=== PATIENT | male | born 1965 | race Caucasian/White ===

== ENCOUNTER 2020-06-30 03:26 | Inpatient (IN) ==
[2020-06-30 03:57] LABS: Basophils # (auto) 0.02 K/uL (0-0.2); Basophils % (auto) 0.3 %; Eosinophils # (auto) 0.22 K/uL (0-0.5); Eosinophils % (auto) 2.9 %; Hematocrit (blood only) 41.8 % (42-52); Hemoglobin 14.1 g/dL (14.0-18.0); Immature Granulocytes # (auto) 0.04 K/uL (0.00-0.02); Immature Granulocytes % (auto) 0.5 %; Lymphocytes # (auto) 1.58 K/uL (1.2-3.4); Lymphocytes % (auto) 20.9 %; Mean Corpuscular Hemoglobin 29.3 pg (25-34); Mean Corpuscular Hgb Conc 33.7 g/dL (32-36); Mean Corpuscular Volume 86.9 fL (80-100); Mean Platelet Volume 9.5 fL (7.4-10.4); Monocytes # (auto) 0.54 K/uL (0.11-0.59); Monocytes % (auto) 7.1 %; Neutrophils # (auto) 5.16 K/uL (1.4-6.5); Neutrophils % (auto) 68.3 %; Platelet Count 345 K/uL (130-400); RDW Coefficient of Variation 14.4 % (11.5-14.5); Red Blood Count 4.81 M/uL (4.7-6.1); White Blood Count 7.56 K/uL (4.8-10.8)
--- NOTE | 2020-06-30 04:06 | Emergency Department Note ---
History of Present Illness General Chief complaint: Chest Pain Stated complaint: CHEST PAIN Time Seen by Provider: 06/30/20 03:28 Source: patient Mode of arrival: EMS Limitations: no limitations History of Present Illness This patient is a 54-year-old male who presents to the emergency department from [facility] for evaluation of chest pain. The patient states that the pain started about 4 hours prior to arrival. He states that he was trying to go to bed when the pain started. Initially, pain was right-sided and intermittently sharp. He had some associated diaphoresis and vomiting. He has felt short of breath. He states that prior to arrival, pain did move somewhat to the left side. He states that nothing makes the pain better or worse. He was given aspirin in route here and states that his pain is now gone. Patient has a history of hyperlipidemia and hypertension, denies any history of heart disease. He is a former smoker. He does report a family history of MN in his father around age 50. He denies any recent cough, fever or shortness of breath. He does report that about a month ago, he had a few episodes of passing out associated with some chest pain. He was evaluated by the medical unit for this but had no further work-up. Home Medications Medication Instructions Recorded Confirmed Type Novolin 70-30 FlexPen U-100 40 - 45 unit SUBCUT BID 06/30/20 06/30/20 History amiodarone 200 mg PO BID 06/30/20 06/30/20 History aspirin 81 mg PO DAILY 06/30/20 06/30/20 History hydrochlorothiazide 25 mg PO DAILY 06/30/20 06/30/20 History losartan 25 mg PO DAILY 06/30/20 06/30/20 History metoprolol tartrate 25 mg PO BID 06/30/20 06/30/20 History rosuvastatin 40 mg PO DAILY 06/30/20 06/30/20 History warfarin 6 mg PO DAILY 06/30/20 06/30/20 History oxycodone 5 - 10 mg PO Q6H PRN #20 tab 07/05/20 Rx Allergies Allergy/AdvReac Type Severity Reaction Status Date / Time No Known Allergies Allergy Unverified 06/30/20 07:15 Past Med/Surg History Medical History Dyslipidemia Hypertension Surgical History No significant past surgical history Social History Smoking Status: Former smoker Hx Alcohol Use: No Hx Substance Use: No Preferred Language: Zambian Communication Ability: Effective Duct Layer Supervisor Required: No Beliefs That Will Affect Care: None Current Living Situation: Other Current Living Situation Comment: [facility] Choi Feels Safe at Home: Yes Assistive Devices: None Review of Systems A total of 10 systems reviewed and were otherwise negative Physical Exam Vital Signs Vital Signs - 24 hr 06/30/20 03:33 Temperature 37.1 C Temperature Source Oral Pulse Rate 73 Respiratory Rate 20 Blood Pressure 148/88 H Blood Pressure Mean 108 Blood Pressure Position Sitting Pulse Oximetry 95 Oxygen Delivery Method Room Air Sepsis Recent Fever Within 48 Hours No Sepsis New/Unexplained Change in Mental Status No Sepsis Action Taken by Nursing No Action Required VITALS: Vitals are noted on the nurse's note and reviewed by myself. GENERAL: This is a 54-year-old obese male in no acute distress. SKIN: The skin was without rashes. EARS: External auditory canals clear, tympanic membranes pearly baig without erythema or effusion bilaterally. EYES: Pupils equal round and reactive to light and accommodation. MOUTH: Mucous membranes moist. Tonsils are not enlarged. Pharynx without erythema or exudate. NECK: Supple without nuchal rigidity. No lymphadenopathy. HEART: Regular rate and rhythm without murmurs gallops or rubs. LUNGS: Clear to auscultation bilaterally without wheezes, rales or rhonchi. ABDOMEN: Positive bowel sounds x 4. Moderate right upper quadrant tenderness to palpation. EXTREMITIES: No lower extremity edema. NEURO: Patient was alert and oriented to person place and time. Course Consultations Consultation #1: Dr. Troncoso - general surgery Dr. Troncoso will evaluate the patient but recommended admitting to the medical service. Consultation #2: Dr. Salazar - [facility] hospitalist Administered Medications Discontinued Medications Acetaminophen (Acetaminophen 500 Mg Tab) 1,000 mg PO Q6H PRN PRN Reason: pain Stop: 07/31/20 14:06 Last Admin: 07/05/20 07:28 Dose: 1,000 mg Documented by: [id number] Admin: 07/03/20 12:45 Dose: 1,000 mg Documented by: [id number] Admin: 07/01/20 15:05 Dose: 1,000 mg Documented by: [id number] Amiodarone HCl (Amiodarone 200 Mg Tab) 200 mg PO BID [facility] Stop: 07/30/20 11:29 Last Admin: 07/05/20 10:02 Dose: 200 mg Documented by: [id number] Admin: 07/04/20 22:00 Dose: 200 mg Documented by: [id number] Admin: 07/04/20 11:42 Dose: 200 mg Documented by: [id number] Admin: 07/03/20 21:44 Dose: Not Given Documented by: [id number] Admin: 07/03/20 07:52 Dose: 200 mg Documented by: [id number] Admin: 07/02/20 20:37 Dose: 200 mg Documented by: [id number] Admin: 07/02/20 08:28 Dose: 200 mg Documented by: [id number] Admin: 07/01/20 20:28 Dose: 200 mg Documented by: [id number] Admin: 07/01/20 08:29 Dose: 200 mg Documented by: [id number] Admin: 06/30/20 20:16 Dose: 200 mg Documented by: [id number] Admin: 06/30/20 13:38 Dose: 200 mg Documented by: [id number] Aspirin (Aspirin 81 Mg Ectab) 81 mg PO DAILY [facility] Stop: 08/03/20 10:27 Last Admin: 07/05/20 09:12 Dose: 81 mg Documented by: [id number] Admin: 07/04/20 11:45 Dose: 81 mg Documented by: [id number] Bacitracin (Bacitracin Oint 15 Gm Tube) Confirm Administered Dose 45 appln .ROUTE .STK-MED ONE Stop: 07/04/20 06:36 Last Admin: 07/04/20 07:58 Dose: 45 appln Documented by: [id number] Bupivacaine HCl (Bupivacaine 0.5 % 5 Mg/1 Ml Mpf 30ml Vial) Confirm Administered Dose 30 ml .ROUTE .STK-MED ONE Stop: 07/04/20 06:36 Last Admin: 07/04/20 07:59 Dose: 20 ml Documented by: [id number] Fentanyl Citrate (Fentanyl Citrate 100 Mcg/2 Ml Vial) 50 mcg IV Q5M PRN PRN Reason: PACU Use Only-Pain Stop: 07/04/20 15:15 Last Admin: 07/04/20 09:35 Dose: 50 mcg Documented by: [id number] Admin: 07/04/20 09:24 Dose: 50 mcg Documented by: [id number] Admin: 07/04/20 09:18 Dose: 50 mcg Documented by: [id number] Hydrochlorothiazide (Hydrochlorothiazide 25 Mg Tab) 25 mg PO DAILY [facility] Stop: 08/03/20 10:27 Last Admin: 07/05/20 09:12 Dose: 25 mg Documented by: [id number] Admin: 07/04/20 11:45 Dose: 25 mg Documented by: [id number] Piperacillin Sod/Tazobactam (Sod 3.375 gm/ Dextrose) 100 ml in 115 mls @ 230 mls/hr IV NOW STA Stop: 06/30/20 08:50 Last Infusion: 06/30/20 09:39 Dose: 0 mls/hr Documented by: [id number] Admin: 06/30/20 08:47 Dose: 230 mls/hr Documented by: [id number] Lactated Ringer's (Lr) 1,000 mls @ 80 mls/hr IV .[id number] DREA Stop: 07/30/20 08:29 Last Infusion: 07/05/20 10:51 Dose: 0 mls/hr Documented by: [id number] Admin: 07/05/20 09:06 Dose: 80 mls/hr Documented by: [id number] Infusion: 07/05/20 08:46 Dose: 80 mls/hr Documented by: [id number] Admin: 07/04/20 20:16 Dose: 80 mls/hr Documented by: [id number] Admin: 07/04/20 18:25 Dose: Not Given Documented by: [id number] Infusion: 07/04/20 07:00 Dose: 0 mls/hr Documented by: [id number] Infusion: 07/04/20 03:00 Dose: 80 mls/hr Documented by: [id number] Infusion: 07/04/20 02:19 Dose: 0 mls/hr Documented by: [id number] Admin: 07/03/20 23:15 Dose: 80 mls/hr Documented by: [id number] Infusion: 07/03/20 23:15 Dose: 80 mls/hr Documented by: [id number] Admin: 07/03/20 12:10 Dose: 80 mls/hr Documented by: [id number] Infusion: 07/03/20 12:10 Dose: 0 mls/hr Documented by: [id number] Admin: 07/02/20 22:50 Dose: 80 mls/hr Documented by: [id number] Infusion: 07/02/20 22:50 Dose: 80 mls/hr Documented by: [id number] Admin: 07/02/20 12:18 Dose: 80 mls/hr Documented by: [id number] Infusion: 07/02/20 12:18 Dose: 0 mls/hr Documented by: [id number] Infusion: 07/02/20 08:27 Dose: 80 mls/hr Documented by: [id number] Admin: 07/02/20 03:06 Dose: 125 mls/hr Documented by: [id number] Infusion: 07/02/20 03:06 Dose: 125 mls/hr Documented by: [id number] Admin: 07/01/20 20:27 Dose: 125 mls/hr Documented by: [id number] Infusion: 07/01/20 19:31 Dose: 125 mls/hr Documented by: [id number] Admin: 07/01/20 11:31 Dose: 125 mls/hr Documented by: [id number] Infusion: 07/01/20 11:31 Dose: 0 mls/hr Documented by: [id number] Infusion: 07/01/20 05:25 Dose: 125 mls/hr Documented by: [id number] Admin: 07/01/20 03:38 Dose: 125 mls/hr Documented by: [id number] Infusion: 07/01/20 03:38 Dose: 125 mls/hr Documented by: [id number] Infusion: 06/30/20 21:26 Dose: 125 mls/hr Documented by: [id number] Admin: 06/30/20 20:10 Dose: 125 mls/hr Documented by: [id number] Infusion: 06/30/20 17:34 Dose: 125 mls/hr Documented by: [id number] Admin: 06/30/20 09:34 Dose: 125 mls/hr Documented by: [id number] Piperacillin Sod/Tazobactam (Sod 4.5 gm/ Dextrose) 120 mls @ 30 mls/hr IV Q8H [facility]; Protocol Stop: 07/10/20 13:59 Last Infusion: 07/05/20 14:41 Dose: 0 mls/hr Documented by: [id number] Admin: 07/05/20 10:47 Dose: 30 mls/hr Documented by: [id number] Infusion: 07/05/20 05:49 Dose: 0 mls/hr Documented by: [id number] Admin: 07/05/20 01:49 Dose: 30 mls/hr Documented by: [id number] Infusion: 07/04/20 22:07 Dose: 0 mls/hr Documented by: [id number] Admin: 07/04/20 17:52 Dose: 30 mls/hr Documented by: [id number] Infusion: 07/04/20 11:38 Dose: 0 mls/hr Documented by: [id number] Admin: 07/04/20 07:24 Dose: 30 mls/hr Documented by: [id number] Admin: 07/04/20 01:42 Dose: Not Given Documented by: [id number] Infusion: 07/03/20 22:07 Dose: 0 mls/hr Documented by: [id number] Admin: 07/03/20 17:57 Dose: 30 mls/hr Documented by: [id number] Infusion: 07/03/20 13:05 Dose: 0 mls/hr Documented by: [id number] Admin: 07/03/20 09:05 Dose: 30 mls/hr Documented by: [id number] Infusion: 07/03/20 06:04 Dose: 0 mls/hr Documented by: [id number] Admin: 07/03/20 02:01 Dose: 30 mls/hr Documented by: [id number] Infusion: 07/02/20 21:59 Dose: 0 mls/hr Documented by: [id number] Admin: 07/02/20 17:51 Dose: 30 mls/hr Documented by: [id number] Infusion: 07/02/20 14:22 Dose: 0 mls/hr Documented by: [id number] Admin: 07/02/20 10:02 Dose: 30 mls/hr Documented by: [id number] Infusion: 07/02/20 07:10 Dose: 0 mls/hr Documented by: [id number] Admin: 07/02/20 03:09 Dose: 30 mls/hr Documented by: [id number] Infusion: 07/01/20 21:53 Dose: 0 mls/hr Documented by: [id number] Admin: 07/01/20 17:43 Dose: 30 mls/hr Documented by: [id number] Infusion: 07/01/20 13:40 Dose: 0 mls/hr Documented by: [id number] Admin: 07/01/20 09:33 Dose: 30 mls/hr Documented by: [id number] Infusion: 07/01/20 05:25 Dose: 0 mls/hr Documented by: [id number] Admin: 07/01/20 01:39 Dose: 30 mls/hr Documented by: [id number] Infusion: 06/30/20 21:26 Dose: 0 mls/hr Documented by: [id number] Admin: 06/30/20 17:07 Dose: 30 mls/hr Documented by: [id number] Insulin Aspart (Insulin Aspart 100 Units/Ml 3 Ml Pen) 0 units SC ACHS DREA Stop: 07/30/20 11:29 Last Admin: 06/30/20 13:04 Dose: Not Given Documented by: [id number] Insulin Aspart (Insulin Aspart 100 Units/Ml 3 Ml Pen) 0 units SC ACHS DREA Stop: 07/31/20 16:29 Last Admin: 07/03/20 21:44 Dose: Not Given Documented by: [id number] Cosigned by: [id number] Admin: 07/03/20 17:58 Dose: 6 units Documented by: [id number] Cosigned by: [id number] Admin: 07/03/20 13:15 Dose: 5 units Documented by: [id number] Cosigned by: [id number] Admin: 07/03/20 09:05 Dose: Not Given Documented by: [id number] Admin: 07/02/20 21:29 Dose: Not Given Documented by: [id number] Cosigned by: [id number] Admin: 07/02/20 18:15 Dose: Not Given Documented by: [id number] Admin: 07/02/20 13:16 Dose: Not Given Documented by: [id number] Admin: 07/02/20 08:43 Dose: 2 units Documented by: [id number] Cosigned by: [id number] Admin: 07/01/20 22:01 Dose: Not Given Documented by: [id number] Cosigned by: [id number] Admin: 07/01/20 17:40 Dose: 2 units Documented by: [id number] Cosigned by: [id number] Insulin Aspart (Insulin Aspart 100 Units/Ml 3 Ml Pen) 0 units SC Q6 [facility] Stop: 08/03/20 05:59 Last Admin: 07/04/20 07:24 Dose: Not Given Documented by: [id number] Cosigned by: [id number] Insulin Aspart (Insulin Aspart 100 Units/Ml 3 Ml Pen) 0 units SC ACHS DREA Stop: 08/03/20 11:29 Last Admin: 07/05/20 12:42 Dose: 1 units Documented by: [id number] Cosigned by: [id number] Admin: 07/05/20 09:59 Dose: Not Given Documented by: [id number] Cosigned by: [id number] Admin: 07/04/20 22:06 Dose: Not Given Documented by: [id number] Cosigned by: [id number] Admin: 07/04/20 17:54 Dose: 4 units Documented by: [id number] Cosigned by: [id number] Admin: 07/04/20 11:41 Dose: Not Given Documented by: [id number] Ioversol (Optiray 320 125ml) 119 ml IV ONCE ONE Stop: 07/01/20 10:19 Last Admin: 07/01/20 10:18 Dose: 119 ml Documented by: [id number] Ketorolac Tromethamine (Ketorolac 30 Mg/Ml Vial) 30 mg IV NOW ONE Stop: 07/02/20 11:08 Last Admin: 07/02/20 12:15 Dose: 30 mg Documented by: [id number] Lidocaine HCl (Lidocaine Hcl 1% 20 Ml Vial) Confirm Administered Dose 20 ml .ROUTE .STK-MED ONE Stop: 07/04/20 06:37 Last Admin: 07/04/20 07:59 Dose: 20 ml Documented by: [id number] Losartan Potassium (Losartan Potassium 25 Mg Tab) 25 mg PO DAILY [facility]RE[facility] Stop: 07/30/20 11:29 Last Admin: 07/05/20 09:12 Dose: 25 mg Documented by: [id number] Admin: 07/04/20 11:41 Dose: 25 mg Documented by: [id number] Admin: 07/03/20 07:53 Dose: 25 mg Documented by: [id number] Admin: 07/02/20 08:28 Dose: 25 mg Documented by: [id number] Admin: 07/01/20 08:29 Dose: 25 mg Documented by: [id number] Admin: 06/30/20 13:38 Dose: 25 mg Documented by: [id number] Metoprolol Tartrate (Metoprolol Tartrate 25 Mg Tab) 25 mg PO BID [facility]REA Stop: 07/30/20 11:29 Last Admin: 07/05/20 09:10 Dose: Not Given Documented by: [id number] Admin: 07/04/20 22:00 Dose: 25 mg Documented by: [id number] Admin: 07/04/20 11:41 Dose: 25 mg Documented by: [id number] Admin: 07/03/20 21:44 Dose: Not Given Documented by: [id number] Admin: 07/03/20 07:53 Dose: Not Given Documented by: [id number] Admin: 07/02/20 20:37 Dose: 25 mg Documented by: [id number] Admin: 07/02/20 08:28 Dose: 25 mg Documented by: [id number] Admin: 07/01/20 20:27 Dose: 25 mg Documented by: [id number] Admin: 07/01/20 08:29 Dose: 25 mg Documented by: [id number] Admin: 06/30/20 20:16 Dose: 25 mg Documented by: [id number] Admin: 06/30/20 13:38 Dose: 25 mg Documented by: [id number] Morphine Sulfate (Morphine Sulfate 2 Mg/Ml Carp) 2 mg IV Q4 PRN; Protocol PRN Reason: Pain Stop: 07/14/20 08:20 Last Admin: 07/01/20 22:22 Dose: 2 mg Documented by: [id number] Admin: 07/01/20 09:10 Dose: 2 mg Documented by: [id number] Admin: 06/30/20 08:45 Dose: 2 mg Documented by: [id number] Ondansetron HCl (Ondansetron Inj 2 Mg/Ml 2 Ml Vial) 4 mg IV Q6H PRN PRN Reason: Nausea Stop: 07/30/20 11:16 Last Admin: 07/03/20 09:02 Dose: 4 mg Documented by: [id number] Admin: 07/02/20 17:55 Dose: 4 mg Documented by: [id number] Admin: 07/01/20 22:50 Dose: 4 mg Documented by: [id number] Admin: 07/01/20 09:17 Dose: 4 mg Documented by: [id number] Ondansetron HCl (Ondansetron Inj 2 Mg/Ml 2 Ml Vial) 4 mg IV ONCE PRN PRN Reason: PACU Use Only-Nausea/Vomiting Stop: 07/04/20 15:16 Last Admin: 07/04/20 09:20 Dose: 4 mg Documented by: [id number] Oxycodone HCl (Oxycodone Hcl Ir 5 Mg Tab (Immediate Release)) 10 mg PO Q6H PRN PRN Reason: Moderate Pain Stop: 07/16/20 11:06 Last Admin: 07/05/20 03:13 Dose: 10 mg Documented by: [id number] Admin: 07/04/20 20:16 Dose: 10 mg Documented by: [id number] Admin: 07/04/20 11:46 Dose: 10 mg Documented by: [id number] Admin: 07/02/20 18:26 Dose: 10 mg Documented by: [id number] Rosuvastatin Calcium (Rosuvastatin Calcium 20 Mg Tab) 40 mg PO DAILY [facility] Stop: 08/03/20 10:27 Last Admin: 07/05/20 09:12 Dose: 40 mg Documented by: [id number] Admin: 07/04/20 11:45 Dose: 40 mg Documented by: [id number] Warfarin Sodium (Warfarin Sod 6 Mg Tab) 6 mg PO DAILY@1600 [facility] Stop: 08/03/20 15:59 Last Admin: 07/05/20 15:41 Dose: 6 mg Documented by: [id number] Admin: 07/04/20 16:31 Dose: 6 mg Documented by: [id number] Medical Decision Making Differential Diagnosis Differential diagnosis includes acute coronary syndrome, pulmonary embolism, pneumothorax, pericarditis, myocarditis, endocarditis, anxiety, musculoskeletal pain, GERD, costochondritis, pneumonia, biliary colic, among others. Home Medications Current Medication List: was personally reviewed by me Laboratory Data Attestation: I reviewed the patient's lab results. Result diagrams: 07/05/20 07:35 07/05/20 07:35 Lab Results 06/30/20 06/30/20 06/30/20 Range/Units 03:47 03:47 06:41 WBC 7.56 (4.8-10.8) K/uL RBC 4.81 (4.7-6.1) M/uL Hgb 14.1 (14.0-18.0) g/dL Hct 41.8 L (42-52) % MCV 86.9 (80-100) fL MCH 29.3 (25-34) pg MCHC 33.7 (32-36) g/dL RDW Std Deviation 46.0 (36.4-46.3) fL RDW Coeff of Serena 14.4 (11.5-14.5) % Plt Count 345 (130-400) K/uL MPV 9.5 (7.4-10.4) fL Immature Gran % (Auto) 0.5 % Neut % (Auto) 68.3 % Lymph % (Auto) 20.9 % [place] % (Auto) 7.1 % Eos % (Auto) 2.9 % Baso % (Auto) 0.3 % Neut # (Auto) 5.16 (1.4-6.5) K/uL Lymph # (Auto) 1.58 (1.2-3.4) K/uL [place] # (Auto) 0.54 (0.11-0.59) K/uL Eos # (Auto) 0.22 (0-0.5) K/uL Baso # (Auto) 0.02 (0-0.2) K/uL Immature Gran # (Auto) 0.04 H (0.00-0.02) K/uL Sodium 141 (136-145) mmol/L Potassium 4.3 (3.5-5.1) mmol/L Chloride 111 H (98-107) mmol/L Carbon Dioxide 26 (21-32) mmol/L Anion Gap 4.0 (3-11) BUN 16 (7-18) mg/dl Creatinine 0.99 (0.6-1.4) mg/dl Est Cr Clr Drug Dosing 104.2 ml/min Est GFR ( Amer) 101.1 Est GFR (Non-Af Amer) 87.2 BUN/Creatinine Ratio 16.7 (10-20) Glucose 164 H (70-99) mg/dl Calcium 8.3 L (8.5-10.1) mg/dl Total Bilirubin 0.4 (0.2-1) mg/dl AST 15 (15-37) U/L ALT 26 (12-78) U/L Alkaline Phosphatase 171 H (45-117) U/L Troponin I < 0.015 (0-0.045) ng/ml Total Protein 7.3 (6.4-8.2) gm/dl Albumin 3.5 (3.4-5.0) gm/dl Globulin 3.8 (2.5-4.0) gm/dl Albumin/Globulin Ratio 0.9 (0.9-2) Lipase 250 (73-393) U/L COVID-19 Eval Order CovFluRsv at [facility] SARS-CoV-2 (PCR) (Negative) Influenza Type A (PCR) (Neg) Influenza Type B (PCR) (Neg) RSV (RT-PCR) (Neg) 06/30/20 Range/Units 06:41 WBC (4.8-10.8) K/uL RBC (4.7-6.1) M/uL Hgb (14.0-18.0) g/dL Hct (42-52) % MCV (80-100) fL MCH (25-34) pg MCHC (32-36) g/dL RDW Std Deviation (36.4-46.3) fL RDW Coeff of Serena (11.5-14.5) % Plt Count (130-400) K/uL MPV (7.4-10.4) fL Immature Gran % (Auto) % Neut % (Auto) % Lymph % (Auto) % [place] % (Auto) % Eos % (Auto) % Baso % (Auto) % Neut # (Auto) (1.4-6.5) K/uL Lymph # (Auto) (1.2-3.4) K/uL [place] # (Auto) (0.11-0.59) K/uL Eos # (Auto) (0-0.5) K/uL Baso # (Auto) (0-0.2) K/uL Immature Gran # (Auto) (0.00-0.02) K/uL Sodium (136-145) mmol/L Potassium (3.5-5.1) mmol/L Chloride (98-107) mmol/L Carbon Dioxide (21-32) mmol/L Anion Gap (3-11) BUN (7-18) mg/dl Creatinine (0.6-1.4) mg/dl Est Cr Clr Drug Dosing ml/min Est GFR ( Amer) Est GFR (Non-Af Amer) BUN/Creatinine Ratio (10-20) Glucose (70-99) mg/dl Calcium (8.5-10.1) mg/dl Total Bilirubin (0.2-1) mg/dl AST (15-37) U/L ALT (12-78) U/L Alkaline Phosphatase (45-117) U/L Troponin I (0-0.045) ng/ml Total Protein (6.4-8.2) gm/dl Albumin (3.4-5.0) gm/dl Globulin (2.5-4.0) gm/dl Albumin/Globulin Ratio (0.9-2) Lipase (73-393) U/L COVID-19 Eval Order SARS-CoV-2 (PCR) NEGATIVE (Negative) Influenza Type A (PCR) Negative (Neg) Influenza Type B (PCR) Negative (Neg) RSV (RT-PCR) Negative (Neg) Imaging Data Attestation: I personally reviewed and interpreted this imaging study as follows: My Impression: CHEST 1 VIEW: No pulmonary consolidation or pneumothorax. Normal cardiac silhouette. Radiologist's Impression: US RUQ: Hepatomegaly and hepatic steatosis. Multiple gallstones and sludge. Gallbladder is mildly distended with possible impacted stone at the neck. No gallbladder wall thickening or pericholecystic fluid. No sonographic Howe's sign elicited. No biliary dilatation. Common bile duct 5 mm in diameter. Unremarkable right kidney. No renal calculus or hydronephrosis. Radiologist: Ariel Flores M.D. ECG Data Attestation: I personally reviewed and interpreted this ECG as follows: Indication: + chest pain Rate (beats per minute): 71 Rhythm: + normal sinus ECG Intervals/blocks: + Normal QRS ECG ST segments: + Nonspecific ST abnormalities Comparison ECG Date: no prior available Additional Comments: compared with ECG from the skilled nursing - no significant changes MDM Narrative Continuous cardiac nurse specialist: Order was placed for continuous cardiac nurse specialist. Patient was placed on the cardiac nurse specialist. Patient was noted to be in normal sinus rhythm at an initial rate of 73 bpm. The patient is a 54-year-old male from a local correctional facility who presents today complaining of chest pain. Patient found to be quite tender in the right upper quadrant. His pain is described as in the right lower chest and associated with vomiting. His labs are unremarkable, no leukocytosis or concerning electrolyte abnormalities. LFTs are not elevated. Troponin is not elevated. EKG shows no evidence of ischemia or ectopy. A gallbladder ultrasound was performed and does appear to show some mild distention of the g allbladder as well as an impacted stone at the gallbladder neck. Given these findings, I feel that his pain may be secondary to biliary colic. Consultation was placed with a general surgeon who recommended medical admission. The hospitalist service was consulted and agreed to evaluate the patient for further care. Impression & Plan Right upper quadrant abdominal pain, Cholelithiasis Discharge Plan Visit Data Chief Complaint: Chest Pain Stated Complaint: CHEST PAIN ED Provider: Sheila Erwin ED Midlevel Provider: Marta Street Discharge Problem: Right upper quadrant abdominal pain, Cholelithiasis Patient Disposition: Admitted As Inpatient Condition: Good Discharge Instructions Interventions: ED Discharge Assessment Last Done: 06/30/20 10:43
[2020-06-30 04:13] LABS: Alanine Aminotransferase 26 U/L (12-78); Albumin Level 3.5 gm/dl (3.4-5.0); Aspartate Aminotransferase 15 U/L (15-37); BUN Creatinine Ratio 16.7 (10-20); Blood Urea Nitrogen 16 mg/dl (7-18); Calcium 8.3 mg/dl (8.5-10.1); Carbon Dioxide 26 mmol/L (21-32); Chloride 111 mmol/L (98-107); Creatinine Clr Calc Pharmacy 104.2 ml/min; Est GFR (African American) 101.1; Est GFR (Non-African American) 87.2; Glucose 164 mg/dl (70-99); Lipase 250 U/L (73-393); Potassium 4.3 mmol/L (3.5-5.1); Sodium 141 mmol/L (136-145)
[2020-06-30 04:18] LABS: Albumin Globulin Ratio 0.9 (0.9-2); Alkaline Phosphatase 171 U/L (45-117); Bilirubin,Total 0.4 mg/dl (0.2-1); Globulin 3.8 gm/dl (2.5-4.0); Total Protein 7.3 gm/dl (6.4-8.2); Troponin I < 0.015 ng/ml (0-0.045)
--- NOTE | 2020-06-30 06:52 | Ultrasound Report ---
US gallbladder CLINICAL HISTORY: ruq pain/right chest pain COMPARISON STUDY: No previous studies for comparison. FINDINGS: Hepatic echogenicity is increased. No hepatic lesions are identified. Pancreas is obscured by overlying bowel gas. There is no biliary ductal dilatation. The common bile duct measures 5 mm in caliber. There are multiple stones within the gallbladder. There is sludge within the gallbladder. Th e gallbladder is mildly distended. There is no gallbladder wall thickening. No sonographic Howe sig n was elicited. There is no pericholecystic fluid. There is no right hydronephrosis. IMPRESSION: 1. Cholelithiasis and mild gallbladder distention. No sonographic Howe sign. No gallbladder wall th ickening. 2. No biliary duct dilatation. 3. Hepatic steatosis. 4. Largely obscured pancreas. ACT 112: Negative or not required by law. Electronically signed by: Saul Nolasco M.D. 06/30/2020 6:51 AM
[2020-06-30 07:35] LABS: Influenza A virus by PCR Negative (Neg); Influenza B virus by PCR Negative (Neg); RSV by PCR Negative (Neg); SARS CoV2 RNA(COVID-19) InHosp NEGATIVE (Negative)
[2020-06-30] MEDS ORDERED: PIPERACILL/TAZOBAC CONSULT ACTIVE PRN (08:21)
[2020-06-30] MEDS ORDERED: PIPERACILLIN/TAZOBACTAM 3.375 GM in DEXTROSE 5% 100 ML/100 ML BAG IV STA (08:21)
[2020-06-30] MEDS: MoRPHine SULFATE 2 MG/ML CARP IV PRN (08:45)
--- NOTE | 2020-06-30 08:46 | XRay Report ---
XR chest 1V portable CLINICAL HISTORY: Chest Pain COMPARISON STUDY: No previous studies for comparison. FINDINGS: Lung volumes are at the lower limits of normal. There is no pneumothorax or pleural effusio n. No consolidation or evidence for pulmonary edema. Cardiac size is at the upper limits of normal. IMPRESSION: No acute cardiopulmonary findings. ACT 112: Negative or not required by law. Electronically signed by: Saul Nolasco M.D. 06/30/2020 8:45 AM
[2020-06-30] MEDS: LACTATED RINGER'S 1,000 ML IV SCH ×2 (09:34→20:10)
--- NOTE | 2020-06-30 09:53 | Surgery Consultation ---
Date of Consultation June 30, 2020 Assessment & Plan (1) Acute cholecystitis due to biliary calculus: pt is a 54 year-old male who presents to ER with chest pain, U/S study diagnosis- acute cholecystitis with gallstone. IMP: Acute cholecystitis, cholelithiasis, Plan, medicine team will admit pt to hospital, IV fluid, clear diet, iv antibiotic, zosyn, Hold coumadin for 4 days, SCD, repeat labs, INR, PT , I plan to do laparoscopic cholecystectomy possible open or cholangiogram on 7:30 AM 07/04/2020, NPO after MN on 07/03/2020. D/W Benefits, risks and alternatives of the surgery, pt understood, he agrees with the plan, I answered all questions, will F/U Present on Admission?: Yes History of Present Illness History of Present Illness History of Present Illness General Chief complaint: Chest Pain Stated complaint: CHEST PAIN Time Seen by Provider: 06/30/20 03:28 Source: patient Mode of arrival: EMS Limitations: no limitations History of Present Illness This patient is a 54-year-old male who presents to the emergency department from [facility] for evaluation of chest pain. The patient states that the pain started about 4 hours prior to arrival. He states that he was trying to go to bed when the pain started. Initially, pain was right-sided and intermittently sharp. He had some associated diaphoresis and vomiting. He has felt short of breath. He states that prior to arrival, pain did move somewhat to the left side. He states that nothing makes the pain better or worse. He was given aspirin in route here and states that his pain is now gone. Patient has a history of hyperlipidemia and hypertension, denies any history of heart disease. He is a former smoker. He does report a family history of [place] in his father around age 50. He denies any recent cough, fever or shortness of breath. He does report that about a month ago, he had a few episodes of passing out associated with some chest pain. He was evaluated by the medical unit for this but had no further work-up. I ( Michaelle Troncoso MD ) got a call for consult acute cholecystitis with gallstone, I reviewed pt's H/P, labs, U/S study with pt, pt is still have RUQ pain, no more chest pain. Past Med/Surg History Medical History Dyslipidemia Hypertension Surgical History (Updated 06/30/20 @ 04:[address] PA-C) No significant past surgical history Social History Smoking Status: Former smoker Preferred Language: Moldovan Feels Safe at Home: Yes Review of Systems A total of 10 systems reviewed and were otherwise negative Allergies Allergy/AdvReac Type Severity Reaction Status Date / Time No Known Allergies Allergy Unverified 06/30/20 07:15 Home Medications Medication Instructions Recorded Confirmed Type amiodarone 200 mg PO BID 06/30/20 06/30/20 History aspirin 81 mg PO DAILY 06/30/20 06/30/20 History hydrochlorothiazide 25 mg PO DAILY 06/30/20 06/30/20 History insulin NPH and regular human 40 - 45 unit SUBCUT BID 06/30/20 06/30/20 History [Novolin 70-30 FlexPen U-100] losartan 25 mg PO DAILY 06/30/20 06/30/20 History metoprolol tartrate 25 mg PO BID 06/30/20 06/30/20 History rosuvastatin 40 mg PO DAILY 06/30/20 06/30/20 History warfarin 6 mg PO DAILY 06/30/20 06/30/20 History Patient History Medical History (Updated 06/30/20 @ 09:54 by Michaelle Troncoso MD) Dyslipidemia Hypertension Surgical History (Updated 06/30/20 @ 04:[address] PA-C) No significant past surgical history Social History Smoking Status: Former smoker Preferred Language: Moldovan Feels Safe at Home: Yes Review of Systems Review of Systems: All systems reviewed & are unremarkable except as noted in HPI & below Constitutional: as per Subjective / HPI Eyes: as per Subjective / HPI Ear, Nose, Mouth, Throat: as per Subjective / HPI Respiratory: as per Subjective / HPI Cardiovascular: as per Subjective / HPI Additional Comments: HTN, Gastrointestinal: as per Subjective / HPI Genitourinary: + as per Subjective / HPI Musculoskeletal: as per Subjective / HPI Integumentary: as per Subjective / HPI Neurologic: as per Subjective / HPI Psychiatric: as per Subjective / HPI Endocrine: as per Subjective / HPI DM Hematologic / Lymphatic: as per Subjective / HPI Allergy / Immunological: as per Subjective / HPI Physical Exam Constitutional: WD/WN, vitals as above Eyes: PERRL, conjunctivae normal, anicteric sclerae ENMT: external ear and nose normal, oropharynx normal Neck: trachea midline, no thyromegaly Respiratory: normal respiratory effort, lungs clear to auscultation normal respiratory effort Cardiovascular: RRR, no murmur, no edema Rate/Rhythm: regular rate and regular rhythm Gastrointestinal (Abdomen): Percussion/Palpation: abdomen soft mild tenderness at RUQ, no rebound pain, no distend, BS + Musculoskeletal: no cyanosis or clubbing, extremities motor strength 5/5 Skin: no rashes, warm and dry Neurologic: awake Psychiatric: Orientation: alert and oriented x 3 Results & Data ([facility]) Vital Signs (Past 12 Hours) Vital Signs Temp Pulse Pulse Resp BP BP Pulse Ox 06/30/20 09:30 66 14 140/87 06/30/20 09:00 66 14 142/103 H 06/30/20 08:43 74 16 145/108 H 06/30/20 07:00 69 14 158/101 H 96 06/30/20 06:32 78 16 147/107 H 97 06/30/20 06:31 83 20 181/121 H 97 06/30/20 06:02 69 20 135/84 97 06/30/20 05:00 64 69 16 127/97 127/97 95 06/30/20 04:44 69 13 128/80 97 06/30/20 03:34 67 20 148/88 H 95 06/30/20 03:33 37.1 C 73 20 148/88 H 95 Laboratory Results Abnormal lab results 06/30/20 06/30/20 Range/Units 03:47 03:47 Hct 41.8 L (42-52) % Immature Gran # (Auto) 0.04 H (0.00-0.02) K/uL Chloride 111 H (98-107) mmol/L Glucose 164 H (70-99) mg/dl Calcium 8.3 L (8.5-10.1) mg/dl Alkaline Phosphatase 171 H (45-117) U/L Diagnostic Findings US gallbladder CLINICAL HISTORY: ruq pain/right chest pain COMPARISON STUDY: No previous studies for comparison. FINDINGS: Hepatic echogenicity is increased. No hepatic lesions are identified. Pancreas is obscured by overlying bowel gas. There is no biliary ductal dilatation. The common bile duct measures 5 mm in caliber. There are multiple s tones within the gallbladder. There is sludge within the gallbladder. The gallbladder is mildly distended. There is no gallbladder wall thickening. No sonographic Howe sign was elicited. There is no pericholecystic fluid. There is no right hydronephrosis. IMPRESSION: 1. Cholelithiasis and mild gallbladder distention. No sonographic Howe sign. No gallbladder wall thickening. 2. No biliary duct dilatation. 3. Hepatic steatosis. 4. Largely obscured pancreas.
[2020-06-30] MEDS ORDERED: DEXTROSE 50% 50 ML SYRINGE IV PRN (11:17)
[2020-06-30] MEDS ORDERED: CARBOHYDRATES FOR HYPOGLYCEMIA PO PRN (11:17)
[2020-06-30] MEDS ORDERED: MoRPHine SULFATE 4 MG/ML 1 ML CARP\\VIAL IV PRN (11:17)
[2020-06-30] MEDS ORDERED: GLUCOSE 40% GEL 15 GM TUBE PO PRN (11:17)
[2020-06-30] MEDS ORDERED: GLUCOSE 10 TABS/TUBE PO PRN (11:17)
[2020-06-30] MEDS ORDERED: hydrALAZINE HCL 20 MG/ML VIAL IV PRN (11:17)
[2020-06-30] MEDS ORDERED: GLUCAGON FOR INJ 1 MG VIAL SQ PRN (11:17)
[2020-06-30] MEDS ORDERED: INSULIN ASPART 100 UNITS/ML 3 ML PEN SC SCH (11:30)
[2020-06-30] MEDS: METOPROLOL TARTRATE 25 MG TAB PO SCH ×2 (13:38→20:16)
[2020-06-30] MEDS: AMIODARONE 200 MG TAB PO SCH ×2 (13:38→20:16)
[2020-06-30] MEDS: LOSARTAN POTASSIUM 25 MG TAB PO SCH (13:38)
--- NOTE | 2020-06-30 15:13 | Electrocardiogram Report ---
Test Reason : Blood Pressure : / mmHG Vent. Rate : 071 BPM Atrial Rate : 071 BPM P-R Int : 174 ms QRS Dur : 086 ms QT Int : 356 ms P-R-T Axes : 032 012 000 degrees QTc Int : 386 ms Normal sinus rhythm Nonspecific T wave abnormality Abnormal ECG No previous ECGs available Confirmed by Mario Kruse ([id number]) on 06/30/2020 3:13:15 PM Referred By: Steph BAKER Confirmed By:Mario Kruse
[2020-06-30] MEDS: PIPERACILLIN/TAZOBACTAM 4.5 GM in DEXTROSE 5% 100 ML IV SCH (17:07)
--- NOTE | 2020-06-30 18:27 | Nuclear Medicine Report ---
NM hepatobiliary CLINICAL HISTORY: Right upper quadrant abdominal pain COMPARISON STUDY: Gallbladder ultrasound dated 06/30/2020 FINDINGS: The patient was injected with 5.1 mCi of technetium 99m Choletec. Sequential anterior images were per formed. Hepatic excretion appeared unremarkable. There was normal passage of activity into small janna l. The gallbladder was first visualized at 15 minute image. IMPRESSION: 1. Normal study. No evidence of cystic duct obstruction ACT 112: Negative or not required by law. Electronically signed by: Aurelio Donato M.D. 06/30/2020 6:26 PM
--- NOTE | 2020-06-30 19:37 | History & Physical Report ---
Date of Service June 30, 2020 Assessment & Plan (1) Acute cholecystitis: Chest pain likely in the right upper quadrant could be acute cholecystitis however pain is not completely classic with that. General surgery is of the believe this could be and is recommending antibiotics and possible surgical removal of gallbladder next week Gallbladder ultrasound 06/30/2020 shows cholelithiasis and mild gallbladder distention with no sonographic Howe sign gallbladder wall thickening dilatory ductal dilatation. Incidental hepatic steatosis is noted Hepatobiliary scan performed 06/30/2020 shows normal study no evidence of cystic duct obstruction Pain is at a proportion and likely may not be acute cholecystitis. If pain is persisting perhaps CT angiogram of the chest will be performed also consideration is could just be an atypical presentation of a shingles outbreak (2) Atrial fibrillation: Patient remains in atrial fibrillation metoprolol anticoagulation is held for possible surgical intervention (3) Diabetes: Patient typically is diabetic taking 70/30 insulin we will change to basal bolus insulin at this point time as long as he begins to eat again (4) Hypertension: Metoprolol for atrial fibrillation continuing losartan in addition holding hydrochlorothiazide at this time as we are hydrating him with possible cholecystitis (5) Morbid obesity: This directly impacts his care physical examination and determination of exact etiology of his discomfort Admission and Anticipated Discharge Date Admission Date: June 30, 2020 History of Present Illness Primary Care Provider: [facility] Choi 54-year-old male who presents to the emergency department from [facility] for evaluation of chest/ abdomen pain. The patient states that the pain started about 4 hours prior to arrival. He states that he was trying to go to bed when the pain started. Initially, pain was right-sided and sharp. He had some associated diaphoresis and vomiting. He has felt short of breath. He states that the is reproducible. He was given aspirin in route. on exam his pain is out of porpotion to physical findings, and he has some faint bruise on his lower right rib cage. He denies any recent cough, fever or shortness of breath. He does report that about a month ago, he had a few episodes of passing out associated with some chest pain. He was evaluated by the medical unit for this but had no further work-up. there is some concern for gall bladder disease and will have surgical evaluation Allergies Allergy/AdvReac Type Severity Reaction Status Date / Time No Known Allergies Allergy Unverified 06/30/20 07:15 Home Medications Medication Instructions Recorded Confirmed Type amiodarone 200 mg PO BID 06/30/20 06/30/20 History aspirin 81 mg PO DAILY 06/30/20 06/30/20 History hydrochlorothiazide 25 mg PO DAILY 06/30/20 06/30/20 History insulin NPH and regular human 40 - 45 unit SUBCUT BID 06/30/20 06/30/20 History [Novolin 70-30 FlexPen U-100] losartan 25 mg PO DAILY 06/30/20 06/30/20 History metoprolol tartrate 25 mg PO BID 06/30/20 06/30/20 History rosuvastatin 40 mg PO DAILY 06/30/20 06/30/20 History warfarin 6 mg PO DAILY 06/30/20 06/30/20 History Past Med/Surg History Medical History Dyslipidemia Hypertension Surgical History No significant past surgical history Social History Smoking Status: Former smoker Do You Dip or Chew Tobacco: No; Hx Alcohol Use: No Hx Substance Use: No Preferred Language: Italian Communication Ability: Effective [employer] Required: No Beliefs That Will Affect Care: None Current Living Situation: Other Current Living Situation Comment: [facility] Other Information That Helps Us Care for You: No Feels Safe at Home: Yes Assistive Devices: None Review of Systems Review of Systems: Mild distress and fatigue no headache, blurry or double vision no speech or swallowing issues Lower right-sided chest pain, not sensation of pressure or feeling of palpitations no shortness of breath, cough or wheezes Right upper quadrant abdominal pain, previous nausea & vomiting resolved, no diarrhea or constipation no dysuria, hematuria or frequency no focal joint pain or swelling no back pain, CVA tenderness or radicular pain no bruising, bleeding or rashes no focal signs of weakness or numbness or altered sensation no complaints of anxiety or depression.. Physical Exam Physical Exam: The patient appeared well nourished and normally developed. He is morbidly obese with a BMI of 43 Vital signs as documented. Head exam is normocephalic atraumatic no scleral icterus Neck is without JVD, thyromegaly, or carotid bruits. Lungs are clear to auscultation, no focal loss of breath sounds Cardiac exam, Rhythm is regular.. No murmurs, rubs or gallops. Abdominal exam reveals normal bowel sounds, soft tenderness to the right side right upper quadrant right lower rib cage tenderness is out of proportion to physical findings does not feel have overt hepatomegaly does not have definite Howe sign Extremities are nonedematous and both pedal pulses are present Neurologic exam is alert and oriented, no focal loss of strength or sensation Skin is without bruises or rashes Psychologically is without concerns for anxiety or depression Results & Data Results & Data ([facility]) Vital Signs (Past 12 Hours) Vital Signs Temp Pulse Pulse Resp BP BP BP 06/30/20 15:00 98.1 F 74 16 169/99 H 06/30/20 13:20 70 147/95 H 06/30/20 11:00 97.9 F 73 16 150/91 H 06/30/20 10:30 64 16 134/106 H 06/30/20 10:00 68 13 128/90 06/30/20 09:30 66 14 140/87 06/30/20 09:00 66 14 142/103 H 06/30/20 08:43 74 16 145/108 H Pulse Ox 06/30/20 15:00 95 06/30/20 13:20 06/30/20 11:00 96 06/30/20 10:30 06/30/20 10:00 06/30/20 09:30 06/30/20 09:00 06/30/20 08:43 EKG shows sinus rhythm no acute ST changes nonspecific ST changes in the anterior leads Code Status & VTE Plan VTE Prophylaxis Plan VTE Prophylaxis will be ordered: No PG Care Time/CCT Total # of Minutes Spent Total Time Spent with Patient: Total time spent is greater than 50% in coordination of care (as documented) at patient's floor/unit and/or counseling patient: Coding Level of Care Code 93309 Initial Inpt Care Lvl 3 Diagnoses Acute cholecystitis K81.0 Atrial fibrillation I48.91 Diabetes E11.9 Hypertension I10 Morbid obesity E66.01
[2020-07-01] MEDS: PIPERACILLIN/TAZOBACTAM 4.5 GM in DEXTROSE 5% 100 ML IV SCH ×3 (01:39→17:43)
[2020-07-01] MEDS: LACTATED RINGER'S 1,000 ML IV SCH ×3 (03:38→20:27)
[2020-07-01 06:28] LABS: Hematocrit (blood only) 39.7 % (42-52); Hemoglobin 13.3 g/dL (14.0-18.0); Mean Corpuscular Hemoglobin 29.3 pg (25-34); Mean Corpuscular Hgb Conc 33.5 g/dL (32-36); Mean Corpuscular Volume 87.4 fL (80-100); Mean Platelet Volume 9.5 fL (7.4-10.4); Platelet Count 324 K/uL (130-400); RDW Coefficient of Variation 14.8 % (11.5-14.5); RDW Standard Deviation 47.5 fL (36.4-46.3); Red Blood Count 4.54 M/uL (4.7-6.1)
[2020-07-01 06:41] LABS: Prothrombin Time 10.1 Seconds (9.0-12.0)
[2020-07-01 06:52] LABS: Albumin Level 2.9 gm/dl (3.4-5.0); BUN Creatinine Ratio 11.3 (10-20); Calcium 8.2 mg/dl (8.5-10.1); Creatinine Clr Calc Pharmacy 110.9 ml/min; Est GFR (Non-African American) 94.1; Potassium 4.1 mmol/L (3.5-5.1)
[2020-07-01 06:55] LABS: Bilirubin,Total 0.5 mg/dl (0.2-1); Total Protein 5.9 gm/dl (6.4-8.2)
[2020-07-01] MEDS: AMIODARONE 200 MG TAB PO SCH ×2 (08:29→20:28)
[2020-07-01] MEDS: LOSARTAN POTASSIUM 25 MG TAB PO SCH (08:29)
[2020-07-01] MEDS: METOPROLOL TARTRATE 25 MG TAB PO SCH ×2 (08:29→20:27)
[2020-07-01] MEDS: MoRPHine SULFATE 2 MG/ML CARP IV PRN ×2 (09:10→22:22)
[2020-07-01] MEDS: ONDANSETRON INJ 2 MG/ML 2 ML VIAL IV PRN ×2 (09:17→22:50)
[2020-07-01] MEDS ORDERED: OPTIRAY 320 125ml IV ONE (10:18)
--- NOTE | 2020-07-01 10:37 | CT Scan Report ---
CHEST CTA for PULMONARY ARTERIES CT DOSE: 772.88 mGy.cm HISTORY: PE, atypical pleuritic right sided chest pain TECHNIQUE: Multiaxial CT images of the chest were performed following the intravenous administration of contrast to evaluate the pulmonary arteries. Maximal intensity projection images were also obtaine d. A dose lowering technique was utilized adhering to the principles of ALARA. COMPARISON STUDY: None. FINDINGS: Limited views of the upper abdomen demonstrate a normal liver and spleen. There are few sma ll gallstones which are partially visualized. No pleural or pericardial effusions. Normal esophagus. No mediastinal or hilar lymphadenopathy. The heart is normal in size. Normal caliber thoracic aorta w ith no evidence for dissection. No filling defects within the pulmonary arteries to suggest pulmonary embolus. Old, healed left-sided rib fractures. No suspicious lytic or blastic osseous lesions. No pn eumothorax. The central airways are patent. No focal lung consolidations to suggest pneumonia. No emilee dence for pulmonary edema. IMPRESSION: 1. No evidence for pulmonary embolus. 2. Cholelithiasis. ACT 112: Negative or not required by law. Electronically signed by: Ethan Lobato M.D. 07/01/2020 10:36 AM
--- NOTE | 2020-07-01 13:08 | Surgery Progress Note ---
Date of Service F/U Cholelithiasis, pt said he has some RUQ pain comes and go. pt denies nausea, no vomiting, HIDA scan- negative, July 01, 2020 Assessment & Plan (1) Acute cholecystitis due to biliary calculus: pt is a 54 year-old male who presents to ER with chest pain, U/S study diagnosis- acute cholecystitis with gallstone. IMP: Acute cholecystitis, cholelithiasis, Plan, medicine team will admit pt to hospital, IV fluid, clear diet, iv antibiotic, zosyn, Hold coumadin for 4 days, SCD, repeat labs, INR, PT , I plan to do laparoscopic cholecystectomy possible open or cholangiogram on 7:30 AM 07/04/2020, NPO after MN on 07/03/2020. D/W Benefits, risks and alternatives of the surgery, pt understood, he agrees with the plan, I answered all questions, will F/U 07/01/2020 1:08PM doing better, less abdominal pain, I recommend to do laparoscopic cholecystectomy, possible open or cholangiogram, D/w benefits, risks and alternatives of the surgery, the risks - infection, bleeding, injury CBD, or bowel, may need ERCP, pt understood, he agrees with the surgery, I answered all questions, hold coumadin now, regular diet now, NPO after MN on 07/03/2020 Admission and Anticipated Discharge Date Admission Date: June 30, 2020 Review of Systems Constitutional: as per Subjective / HPI Eyes: as per Subjective / HPI Ear, Nose, Mouth, Throat: as per Subjective / HPI Respiratory: as per Subjective / HPI Cardiovascular: as per Subjective / HPI Additional Comments: HTN, Gastrointestinal: as per Subjective / HPI Genitourinary: + as per Subjective / HPI Musculoskeletal: as per Subjective / HPI Integumentary: as per Subjective / HPI Neurologic: as per Subjective / HPI Psychiatric: as per Subjective / HPI Endocrine: as per Subjective / HPI DM Hematologic / Lymphatic: as per Subjective / HPI Allergy / Immunological: as per Subjective / HPI Physical Exam Constitutional: WD/WN, vitals as above Eyes: PERRL, conjunctivae normal, anicteric sclerae ENMT: external ear and nose normal, oropharynx normal Neck: trachea midline, no thyromegaly Respiratory: normal respiratory effort, lungs clear to auscultation normal respiratory effort Cardiovascular: RRR, no murmur, no edema Rate/Rhythm: regular rate and regular rhythm Gastrointestinal (Abdomen): normal bowel sounds, soft, nontender, no hepatosplenomegaly Percussion/Palpation: abdomen soft Musculoskeletal: no cyanosis or clubbing, extremities motor strength 5/5 Skin: no rashes, warm and dry Neurologic: awake Psychiatric: Orientation: alert and oriented x 3 Results & Data ([facility]) Vital Signs (Past 12 Hours) Vital Signs Temp Pulse Resp BP Pulse Ox 07/01/20 08:30 36.6 C 70 18 130/83 97 Laboratory Results Abnormal lab results 07/01/20 07/01/20 Range/Units 05:46 05:46 RBC 4.54 L (4.7-6.1) M/uL Hgb 13.3 L (14.0-18.0) g/dL Hct 39.7 L (42-52) % RDW Std Deviation 47.5 H (36.4-46.3) fL RDW Coeff of Serena 14.8 H (11.5-14.5) % Chloride 111 H (98-107) mmol/L Glucose 119 H (70-99) mg/dl Calcium 8.2 L (8.5-10.1) mg/dl AST 13 L (15-37) U/L Alkaline Phosphatase 139 H (45-117) U/L Total Protein 5.9 L (6.4-8.2) gm/dl Albumin 2.9 L (3.4-5.0) gm/dl Diagnostic Findings NM hepatobiliary CLINICAL HISTORY: Right upper quadrant abdominal pain COMPARISON STUDY: Gallbladder ultrasound dated 06/30/2020 FINDINGS: The patient was injected with 5.1 mCi of technetium 99m Choletec. Sequential anterior images were performed. Hepatic excretion appeared unremarkable. There was normal passage of activity into small bowel. The gallbladder was first visualized at 15 minute image. IMPRESSION: 1. Normal study. No evidence of cystic duct obstruction
--- NOTE | 2020-07-01 13:30 | Anesthesiology Consultation ---
Date of Service July 01, 2020 Assessment & Plan (1) Encounter for pre-operative examination: Chart Review Chart Review: entry level account manager initiated History Surgery Operation Date: 07/04/20 07:00 Proposed Procedures p Laparoscopic Cholecystectomy - Michaelle Troncoso MD Height/Weight Height: 5 ft 5 in Weight: 118.8 kg Allergies Allergy/AdvReac Type Severity Reaction Status Date / Time No Known Allergies Allergy Unverified 06/30/20 07:15 Medications Home Medications Medication Instructions Recorded Confirmed Last Taken amiodarone 200 mg PO BID 06/30/20 06/30/20 06/28/20 aspirin 81 mg PO DAILY 06/30/20 06/30/20 06/28/20 hydrochlorothiazide 25 mg PO DAILY 06/30/20 06/30/20 06/28/20 insulin NPH and regular human 40 - 45 unit SUBCUT BID 06/30/20 06/30/20 06/29/20 [Novolin 70-30 FlexPen U-100] losartan 25 mg PO DAILY 06/30/20 06/30/20 06/28/20 metoprolol tartrate 25 mg PO BID 06/30/20 06/30/20 06/28/20 rosuvastatin 40 mg PO DAILY 06/30/20 06/30/20 06/28/20 warfarin 6 mg PO DAILY 06/30/20 06/30/20 06/29/20 Active Medications Generic Name Dose Route Start Last Admin Trade Name Freq PRN Reason Stop Dose Admin Amiodarone HCl 200 mg 06/30/20 11:30 07/01/20 08:29 Amiodarone 200 Mg Tab PO 07/30/20 11:29 200 mg BID DREA Administration Lactated Ringer's 1,000 mls @ 125 mls/hr 06/30/20 08:30 07/01/20 11:31 Lr IV 07/30/20 08:29 125 mls/hr .Q8H DREA Administration Piperacillin Sod/Tazobactam 120 mls @ 30 mls/hr 06/30/20 14:00 07/01/20 09:33 Sod 4.5 gm/ Dextrose IV 07/10/20 13:59 30 mls/hr Q8H DREA Administration Protocol Losartan Potassium 25 mg 06/30/20 11:30 07/01/20 08:29 Losartan Potassium 25 Mg Tab PO 07/30/20 11:29 25 mg DAILY DREA Administration Metoprolol Tartrate 25 mg 06/30/20 11:30 07/01/20 08:29 Metoprolol Tartrate 25 Mg Tab PO 07/30/20 11:29 25 mg BID DREA Administration Morphine Sulfate 2 mg 06/30/20 08:21 07/01/20 09:10 Morphine Sulfate 2 Mg/Ml Carp IV 07/14/20 08:20 2 mg Q4 PRN Administration Pain Protocol Ondansetron HCl 4 mg 06/30/20 11:17 07/01/20 09:17 Ondansetron Inj 2 Mg/Ml 2 Ml Vial IV 07/30/20 11:16 4 mg Q6H PRN Administration Nausea Past Medical History Medical History Dyslipidemia Hypertension Past Surgical History Surgical History No significant past surgical history Social History Smoking Status: Former smoker Do You Dip or Chew Tobacco: No Hx Alcohol Use: No Hx Substance Use: No Physical Exam Vital Signs Last Vital Signs Temp 97.9 F 07/01/20 08:30 Pulse 70 07/01/20 08:30 Resp 18 07/01/20 08:30 BP 130/83 07/01/20 08:30 Pulse Ox 97 07/01/20 08:30 Testing Laboratory Results 07/01/20 05:46 07/01/20 05:46 PT 10.1 Seconds (9.0-12.0) 07/01/20 05:46 INR 1.0 (0.9-1.1) 07/01/20 05:46 Electrocardiogram Date: 06/30/20 Normal sinus rhythm, rate 71 bpm Nonspecific T wave abnormality Abnormal ECG No previous ECGs available Confirmed by Mario Kruse ([id number]) on 06/30/2020 3:13:15 PM Chest X-Ray Date: 06/30/20 Findings: + NAD
[2020-07-01] MEDS ORDERED: GLUCOSE 40% GEL 15 GM TUBE PO PRN (14:07)
[2020-07-01] MEDS ORDERED: GLUCOSE 10 TABS/TUBE PO PRN (14:07)
[2020-07-01] MEDS ORDERED: GLUCAGON FOR INJ 1 MG VIAL SQ PRN (14:07)
[2020-07-01] MEDS ORDERED: DEXTROSE 50% 50 ML SYRINGE IV PRN (14:07)
[2020-07-01] MEDS ORDERED: CARBOHYDRATES FOR HYPOGLYCEMIA PO PRN (14:07)
[2020-07-01] MEDS: ACETAMINOPHEN 500 MG TAB PO PRN (15:05)
[2020-07-01] MEDS: INSULIN ASPART 100 UNITS/ML 3 ML PEN SC SCH ×2 (17:40→22:01)
--- NOTE | 2020-07-01 18:16 | Hospitalist Progress Note ---
Date of Service July 01, 2020 Assessment & Plan (1) Acute cholecystitis: Chest pain likely in the right upper quadrant could be acute cholecystitis however pain is not completely classic with that. General surgery is of the believe this could be and is recommending antibiotics and possible surgical removal of gallbladder next week Gallbladder ultrasound 06/30/2020 shows cholelithiasis and mild gallbladder distention with no sonographic Howe sign gallbladder wall thickening dilatory ductal dilatation. Incidental hepatic steatosis is noted Hepatobiliary scan performed 06/30/2020 shows normal study no evidence of cystic duct obstruction CT angiogram of the chest shows no evidence of musculoskeletal injury or pulmonary embolism Plan is to continue antibiotics and continue plan for general surgery performing cholecystectomy at 7 AM on 07/04/2020 (2) Atrial fibrillation: Patient remains in atrial fibrillation metoprolol for rate control, anticoagulation is held for possible surgical intervention (3) Diabetes: Patient typically is diabetic taking 70/30 insulin we will change to basal bolus insulin at this point time as long as he begins to eat again (4) Hypertension: Metoprolol for atrial fibrillation continuing losartan in addition holding hydrochlorothiazide at this time as we are hydrating him with possible cholecystitis (5) Morbid obesity: This directly impacts his care physical examination and determination of exact etiology of his discomfort Admission and Anticipated Discharge Date Admission Date: June 30, 2020 Subjective Patient persists with some right upper quadrant pain no focal rebound guarding reproducible pain nonetheless Review of Systems Review of Systems: Mild distress and fatigue no headache, blurry or double vision no speech or swallowing issues no chest pain, pressure or palpitations no shortness of breath, cough or wheezes Abdominal pain mostly in right upper quadrant postprandial pain is worsened by pain medications no dysuria, hematuria or frequency no focal joint pain or swelling no back pain, CVA tenderness or radicular pain no bruising, bleeding or rashes no focal signs of weakness or numbness or altered sensation no complaints of anxiety or depression.. Physical Exam Physical Exam: The patient appeared well nourished and normally developed. Vital signs as documented. Head exam is normocephalic atraumatic no scleral icterus Neck is without JVD, thyromegaly, or carotid bruits. Lungs are clear to auscultation, creased at the bases, right greater than left Cardiac exam, Rhythm is regular.. No murmurs, rubs or gallops. Abdominal exam reveals normal bowel sounds, soft reproducible right upper quadrant tenderness Extremities are nonedematous and both pedal pulses are present Neurologic exam is alert and oriented, no focal loss of strength or sensation Skin is without bruises or rashes Psychologically is without concerns for anxiety or depression Results & Data Results & Data ([facility]) Vital Signs (Past 12 Hours) Vital Signs Temp Pulse Pulse Resp BP BP Pulse Ox 07/01/20 16:00 98.4 F 59 L 18 89/55 L 97 07/01/20 08:30 97.9 F 70 18 130/83 97 PG Care Time/CCT Total # of Minutes Spent Total Time Spent with Patient: Total time spent is greater than 50% in coordination of care (as documented) at patient's floor/unit and/or counseling patient: Coding Level of Care Code 68003 Subseq Hosp Care Lvl 2 Diagnoses Acute cholecystitis K81.0 Atrial fibrillation I48.91 Diabetes E11.9 Hypertension I10 Morbid obesity E66.01
[2020-07-02] MEDS: LACTATED RINGER'S 1,000 ML IV SCH ×3 (03:06→22:50)
[2020-07-02] MEDS: PIPERACILLIN/TAZOBACTAM 4.5 GM in DEXTROSE 5% 100 ML IV SCH ×3 (03:09→17:51)
[2020-07-02 05:49] LABS: Hematocrit (blood only) 43.9 % (42-52); Hemoglobin 14.2 g/dL (14.0-18.0); Mean Corpuscular Hemoglobin 28.7 pg (25-34); Mean Corpuscular Hgb Conc 32.3 g/dL (32-36); Mean Corpuscular Volume 88.9 fL (80-100); Mean Platelet Volume 9.5 fL (7.4-10.4); Platelet Count 368 K/uL (130-400); RDW Coefficient of Variation 14.8 % (11.5-14.5); RDW Standard Deviation 47.9 fL (36.4-46.3); Red Blood Count 4.94 M/uL (4.7-6.1); White Blood Count 10.27 K/uL (4.8-10.8)
[2020-07-02 05:56] LABS: Prothrombin Time 9.9 Seconds (9.0-12.0)
[2020-07-02 06:19] LABS: Albumin Level 3.2 gm/dl (3.4-5.0); BUN Creatinine Ratio 9.3 (10-20); Calcium 8.2 mg/dl (8.5-10.1); Creatinine Clr Calc Pharmacy 98.3 ml/min; Est GFR (African American) 94.1; Est GFR (Non-African American) 81.2; Potassium 3.9 mmol/L (3.5-5.1)
[2020-07-02 06:22] LABS: Albumin Globulin Ratio 0.9 (0.9-2); Bilirubin,Total 0.6 mg/dl (0.2-1); Globulin 3.6 gm/dl (2.5-4.0); Total Protein 6.8 gm/dl (6.4-8.2)
--- NOTE | 2020-07-02 08:00 | Surgery Progress Note ---
Date of Service July 02, 2020 Assessment & Plan (1) Acute cholecystitis: diet as moody coumadin on hold for lap mau by Dr. Troncoso on Saturday Admission and Anticipated Discharge Date Admission Date: June 30, 2020 Subjective tolerating diet, occasional morphine for pain Physical Exam Gastrointestinal (Abdomen): Percussion/Palpation: abdomen soft; abdomen nontender Results & Data ([facility]) Vital Signs (Past 12 Hours) Vital Signs Temp Pulse Resp BP Pulse Ox 07/02/20 07:52 36.7 C 61 16 112/70 95 07/01/20 21:40 36.5 C 55 L 18 112/72 98 PG Care Time/CCT Total # of Minutes Spent Total Time Spent with Patient: Total time spent is greater than 50% in coordination of care (as documented) at patient's floor/unit and/or counseling patient: Coding Level of Care Code 04708 Subseq Hosp Care Lvl 1 Diagnoses Acute cholecystitis K81.0
[2020-07-02] MEDS: AMIODARONE 200 MG TAB PO SCH ×2 (08:28→20:37)
[2020-07-02] MEDS: LOSARTAN POTASSIUM 25 MG TAB PO SCH (08:28)
[2020-07-02] MEDS: METOPROLOL TARTRATE 25 MG TAB PO SCH ×2 (08:28→20:37)
[2020-07-02] MEDS: INSULIN ASPART 100 UNITS/ML 3 ML PEN SC SCH ×4 (08:43→21:29)
[2020-07-02] MEDS ORDERED: KETOROLAC 30 MG/ML VIAL IV ONE (11:07)
[2020-07-02] MEDS: ONDANSETRON INJ 2 MG/ML 2 ML VIAL IV PRN (17:55)
[2020-07-02] MEDS: oxyCODONE HCL IR 5 MG TAB (IMMEDIATE RELEASE) PO PRN (18:26)
--- NOTE | 2020-07-02 19:02 | Hospitalist Progress Note ---
Date of Service July 02, 2020 Assessment & Plan (1) Acute cholecystitis: Chest pain likely in the right upper quadrant could be acute cholecystitis however pain is not completely classic with that. General surgery is of the believe this could be and is recommending antibiotics and possible surgical removal of gallbladder next week Gallbladder ultrasound 06/30/2020 shows cholelithiasis and mild gallbladder distention with no sonographic Howe sign gallbladder wall thickening dilatory ductal dilatation. Incidental hepatic steatosis is noted Hepatobiliary scan performed 06/30/2020 shows normal study no evidence of cystic duct obstruction CT angiogram of the chest shows no evidence of musculoskeletal injury or pulmonary embolism Plan is to continue antibiotics and continue plan for general surgery performing cholecystectomy at 7 AM on 07/04/2020 (2) Atrial fibrillation: Patient remains in atrial fibrillation metoprolol for rate control, anticoagulation is held for possible surgical intervention (3) Diabetes: Patient typically is diabetic taking 70/30 insulin we will change to basal bolus insulin at this point time as long as he begins to eat again (4) Hypertension: Metoprolol for atrial fibrillation continuing losartan in addition holding hydrochlorothiazide at this time as we are hydrating him with possible cholecystitis (5) Morbid obesity: This directly impacts his care physical examination and determination of exact etiology of his discomfort Admission and Anticipated Discharge Date Admission Date: June 30, 2020 Subjective tolerating diet, occasional morphine for pain, still with post prandial pain slated for upcoming surgery Review of Systems Review of Systems: Mild distress and fatigue no headache, blurry or double vision no speech or swallowing issues no chest pain, pressure or palpitations no shortness of breath, cough or wheezes Abdominal pain mostly in right upper quadrant postprandial pain is worsened by pain medications no dysuria, hematuria or frequency no focal joint pain or swelling no back pain, CVA tenderness or radicular pain no bruising, bleeding or rashes no focal signs of weakness or numbness or altered sensation no complaints of anxiety or depression.. Physical Exam Physical Exam: The patient appeared well nourished and normally developed. Vital signs as documented. Head exam is normocephalic atraumatic no scleral icterus Neck is without JVD, thyromegaly, or carotid bruits. Lungs are clear to auscultation, creased at the bases, right greater than left Cardiac exam, Rhythm is regular.. No murmurs, rubs or gallops. Abdominal exam reveals normal bowel sounds, soft reproducible right upper quadrant tenderness Extremities are nonedematous and both pedal pulses are present Neurologic exam is alert and oriented, no focal loss of strength or sensation Skin is without bruises or rashes Psychologically is without concerns for anxiety or depression Results & Data Results & Data ([facility]) Vital Signs (Past 12 Hours) Vital Signs Temp Pulse Resp BP BP Pulse Ox 07/02/20 15:40 98.1 F 62 16 127/75 96 07/02/20 07:52 98.1 F 61 16 112/70 95 PG Care Time/CCT Total # of Minutes Spent Total Time Spent with Patient: Total time spent is greater than 50% in coordination of care (as documented) at patient's floor/unit and/or counseling patient: Coding Level of Care Code 51002 Subseq Hosp Care Lvl 2 Diagnoses Acute cholecystitis K81.0 Atrial fibrillation I48.91 Diabetes E11.9 Hypertension I10 Morbid obesity E66.01
[2020-07-03] MEDS: PIPERACILLIN/TAZOBACTAM 4.5 GM in DEXTROSE 5% 100 ML IV SCH ×3 (02:01→17:57)
--- NOTE | 2020-07-03 05:34 | Surgery Progress Note ---
Date of Service July 03, 2020 Assessment & Plan (1) Acute cholecystitis: Patient is scheduled for cholecystectomy by Dr. Troncoso on 07/04/2020 We will make patient n.p.o. after midnight tonight Continue antibiotics in the form of Zosyn Continue IV fluids Provide analgesics Provide antiemetics Patient takes Coumadin as an outpatient which has been placed on hold in anticipation of surgery. His most recent INR was on 07/02/2020 which was at a level of 1.0 which is acceptable for surgery. Coumadin can be resumed postoperatively at the discretion of his primary surgeon. Admission and Anticipated Discharge Date Admission Date: June 30, 2020 Supervising Physician Co-Signing Physician Notes As per Kalen Henry physician pharmacy assistant The patient is without any complaints no nausea except minimal abdominal pain The abdomen is benign minimal right upper quadrant guarding For surgery tomorrow with Dr. Troncoso Subjective Patient denies any fevers, shakes, chills. He denies any nausea vomiting. He does note pain in the right upper quadrant of his abdomen that seems to be worse after he eats but at the present time is not causing him any difficulty. Physical Exam Gastrointestinal (Abdomen): Abdomen is rotund and soft. Bowel sounds are present. There was a small amount of pain with deep palpation in the right upper quadrant. No rebound tenderness or guarding. Results & Data ([facility]) Vital Signs (Past 12 Hours) Vital Signs Temp Pulse Resp BP Pulse Ox 07/02/20 21:45 36.8 C 67 16 132/79 97 PG Care Time/CCT Total # of Minutes Spent Total Time Spent with Patient: Total time spent is greater than 50% in coordination of care (as documented) at patient's floor/unit and/or counseling patient: Coding Level of Care Code 24171 Subseq Hosp Care Lvl 2 Diagnoses Acute cholecystitis K81.0
[2020-07-03 06:13] LABS: Hematocrit (blood only) 39.4 % (42-52); Mean Corpuscular Hemoglobin 29.1 pg (25-34); Mean Corpuscular Volume 88.3 fL (80-100); Mean Platelet Volume 9.6 fL (7.4-10.4); Platelet Count 325 K/uL (130-400); RDW Coefficient of Variation 14.6 % (11.5-14.5); RDW Standard Deviation 47.4 fL (36.4-46.3); Red Blood Count 4.46 M/uL (4.7-6.1); White Blood Count 6.12 K/uL (4.8-10.8)
[2020-07-03 06:25] LABS: Albumin Level 2.8 gm/dl (3.4-5.0); BUN Creatinine Ratio 8.9 (10-20); Calcium 8.3 mg/dl (8.5-10.1); Creatinine Clr Calc Pharmacy 102.2 ml/min; Est GFR (African American) 98.7; Est GFR (Non-African American) 85.1; Potassium 3.7 mmol/L (3.5-5.1)
[2020-07-03 06:28] LABS: Albumin Globulin Ratio 0.8 (0.9-2); Bilirubin,Total 0.4 mg/dl (0.2-1); Globulin 3.3 gm/dl (2.5-4.0); Total Protein 6.1 gm/dl (6.4-8.2)
[2020-07-03] MEDS: AMIODARONE 200 MG TAB PO SCH ×2 (07:52→21:44)
[2020-07-03] MEDS: LOSARTAN POTASSIUM 25 MG TAB PO SCH (07:53)
[2020-07-03] MEDS: METOPROLOL TARTRATE 25 MG TAB PO SCH ×2 (07:53→21:44)
[2020-07-03] MEDS: ONDANSETRON INJ 2 MG/ML 2 ML VIAL IV PRN (09:02)
[2020-07-03] MEDS: INSULIN ASPART 100 UNITS/ML 3 ML PEN SC SCH ×4 (09:05→21:44)
[2020-07-03] MEDS: LACTATED RINGER'S 1,000 ML IV SCH ×2 (12:10→23:15)
[2020-07-03] MEDS: ACETAMINOPHEN 500 MG TAB PO PRN (12:45)
--- NOTE | 2020-07-03 16:56 | Hospitalist Progress Note ---
Date of Service July 03, 2020 Assessment & Plan (1) Acute cholecystitis: Chest pain likely in the right upper quadrant could be acute cholecystitis however pain is not completely classic with that. General surgery is of the believe this could be and is recommending antibiotics and possible surgical removal of gallbladder next week Gallbladder ultrasound 06/30/2020 shows cholelithiasis and mild gallbladder distention with no sonographic Howe sign gallbladder wall thickening dilatory ductal dilatation. Incidental hepatic steatosis is noted Hepatobiliary scan performed 06/30/2020 shows normal study no evidence of cystic duct obstruction CT angiogram of the chest shows no evidence of musculoskeletal injury or pulmonary embolism Plan is to continue antibiotics and continue plan for general surgery performing cholecystectomy at 7 AM on 07/04/2020 (2) Atrial fibrillation: Patient remains in atrial fibrillation metoprolol for rate control, anticoagulation is held for possible surgical intervention (3) Diabetes: Patient typically is diabetic taking 70/30 insulin we will change to basal bolus insulin at this point time as long as he begins to eat again (4) Hypertension: Metoprolol for atrial fibrillation continuing losartan in addition holding hydrochlorothiazide at this time as we are hydrating him with possible cholecystitis (5) Morbid obesity: This directly impacts his care physical examination and determination of exact etiology of his discomfort Admission and Anticipated Discharge Date Admission Date: June 30, 2020 Supervising Physician Co-Signing Physician Notes As per Kalen Henry physician child and youth program assistant The patient is without any complaints no nausea except minimal abdominal pain The abdomen is benign minimal right upper quadrant guarding For surgery tomorrow with Dr. Troncoso Subjective Patient continues to deny any fevers, shakes, chills. He denies any nausea vomiting. He does note persistent pain in the right upper quadrant of his abdomen that seems to be worse after he eats but at the present time is not causing him any difficulty. Review of Systems Review of Systems: Mild distress and fatigue no headache, blurry or double vision no speech or swallowing issues no chest pain, pressure or palpitations no shortness of breath, cough or wheezes Upper quadrant postprandial abdominal pain with minor nausea no vomiting he has loose watery diarrhea no dysuria, hematuria or frequency no focal joint pain or swelling no back pain, CVA tenderness or radicular pain no bruising, bleeding or rashes no focal signs of weakness or numbness or altered sensation no complaints of anxiety or depression.. Physical Exam Physical Exam: The patient appeared well nourished and normally developed. Vital signs as documented. Head exam is normocephalic atraumatic no scleral icterus Neck is without JVD, thyromegaly, or carotid bruits. Lungs are clear to auscultation, creased at the bases, right greater than left Cardiac exam, Rhythm is regular.. No murmurs, rubs or gallops. Abdominal exam reveals normal bowel sounds, soft reproducible right upper quadrant tenderness Extremities are nonedematous and both pedal pulses are present Neurologic exam is alert and oriented, no focal loss of strength or sensation Skin is without bruises or rashes Psychologically is without concerns for anxiety or depression Results & Data Results & Data ([facility]) Vital Signs (Past 12 Hours) Vital Signs Temp Pulse Resp BP Pulse Ox 07/03/20 15:00 98.2 F 61 16 130/62 97 07/03/20 07:34 97.9 F 57 L 18 108/70 96 PG Care Time/CCT Total # of Minutes Spent Total Time Spent with Patient: Total time spent is greater than 50% in coordination of care (as documented) at patient's floor/unit and/or counseling patient: Coding Level of Care Code 73849 Subseq Hosp Care Lvl 2 Diagnoses Acute cholecystitis K81.0 Atrial fibrillation I48.91 Diabetes E11.9 Hypertension I10 Morbid obesity E66.01
[2020-07-04] MEDS: PIPERACILLIN/TAZOBACTAM 4.5 GM in DEXTROSE 5% 100 ML IV SCH ×3 (01:42→17:52)
[2020-07-04] MEDS ORDERED: Nursing to Pharmacy Communication SCH ×2 (01:45→10:30)
[2020-07-04] MEDS ORDERED: INSULIN ASPART 100 UNITS/ML 3 ML PEN SC SCH (06:00)
[2020-07-04] MEDS ORDERED: SUGAMMADEX SODIUM 200 MG/2 ML VIAL IV ONE (06:14)
[2020-07-04] MEDS ORDERED: MIDAZOLAM HCL 1 MG/ML 2ML VIAL ONE (06:28)
[2020-07-04] MEDS ORDERED: ROCURONIUM BROMIDE 10 MG/ML 5 ML VIAL IV ONE ×2 (06:28→08:39)
[2020-07-04] MEDS ORDERED: fentaNYL citrate 100 MCG/2 ML VIAL ONE ×2 (06:28→07:56)
[2020-07-04] MEDS ORDERED: LIDOCAINE HCL 2% 2 ML VIAL/AMP(20MG/ML) INFIL ONE (06:28)
[2020-07-04] MEDS ORDERED: PROPOFOL IV EMULSION 10 MG/ML 20 ML VIAL IV ONE (06:28)
[2020-07-04] MEDS ORDERED: DEXAMETHASONE SOD INJ 4 MG/ML VIAL ONE (06:28)
[2020-07-04] MEDS ORDERED: ONDANSETRON INJ 2 MG/ML 2 ML VIAL ONE (06:28)
[2020-07-04] MEDS ORDERED: BACITRACIN OINT 15 GM TUBE ONE (06:35)
[2020-07-04] MEDS ORDERED: BUPIVACAINE 0.5 % 5 MG/1 ML MPF 30ML VIAL ONE (06:35)
[2020-07-04] MEDS ORDERED: LIDOCAINE HCL 1% 20 ML VIAL ONE (06:36)
[2020-07-04 06:43] LABS: Hematocrit (blood only) 41.3 % (42-52); Hemoglobin 13.5 g/dL (14.0-18.0); Mean Corpuscular Hemoglobin 28.7 pg (25-34); Mean Corpuscular Hgb Conc 32.7 g/dL (32-36); Mean Corpuscular Volume 87.9 fL (80-100); Mean Platelet Volume 9.2 fL (7.4-10.4); Platelet Count 304 K/uL (130-400); RDW Coefficient of Variation 14.3 % (11.5-14.5); RDW Standard Deviation 46.1 fL (36.4-46.3); White Blood Count 6.37 K/uL (4.8-10.8)
--- NOTE | 2020-07-04 07:05 | History & Physical Bridge Note ---
Date of Service July 04, 2020 History & Physical Bridge Note I have examined the patient, reviewed the History & Physical and in the interval since the performance of the History & Physical I have noted the following changes of clinical significance: no changes noted Supervising Physician Co-Signing Physician Notes As per Kalen Henry physician special education educational assistant The patient is without any complaints no nausea except minimal abdominal pain The abdomen is benign minimal right upper quadrant guarding For surgery tomorrow with Dr. Troncoso
[2020-07-04] MEDS ORDERED: ePHEDrine sulfate 50 MG/ML AMP IV PRN (07:15)
[2020-07-04] MEDS ORDERED: ATROPINE SULFATE 0.1 MG/ML 10ML SYR IV PRN (07:15)
[2020-07-04] MEDS ORDERED: ONDANSETRON INJ 2 MG/ML 2 ML VIAL IV PRN (07:15)
--- NOTE | 2020-07-04 08:52 | Post Operative Brief Note ---
Immediate Post Op Note v1 Date of Surgery July 04, 2020 Pre & Post Diagnosis Operation Date: 07/04/20 07:00 Pre-Op Diagnosis: Acute cholecystitis, cholelithiasis Post-Op Diagnosis: Acute cholecystitis, cholelithiasis I identified the patient and participated in the time-out.: Yes Procedure Operation Date: 07/04/20 07:00 Actual Procedures p Laparoscopic Cholecystectomy(Not Applicable) - Michaelle Troncoso MD Surgeon Michaelle Troncoso MD Commercial Door Installer JACKLYN Song Estimated Blood Loss 10 Findings Consistent with Post-Op Diagnosis Fluids 1000ml Specimens gallbladder Anesthesia Type General Complications none Disposition Accompanied Patient To Recovery: Yes Disposition: Recovery Room Overlapping Procedure I was immediately available: during the entire case.
[2020-07-04] MEDS: fentaNYL citrate 100 MCG/2 ML VIAL IV PRN ×3 (09:18→09:35)
--- NOTE | 2020-07-04 09:59 | Anesthesiology Progress Note ---
Date of Service July 04, 2020 Anesthesia Post Procedure Vital Signs Vital Signs: Temp Pulse Pulse Pulse Pulse Resp BP 07/04/20 09:50 75 20 116/79 07/04/20 09:40 97.3 F L 71 20 110/62 07/04/20 09:30 71 16 118/75 07/04/20 09:20 72 16 121/71 07/04/20 09:12 97.0 F L 75 20 133/82 07/04/20 07:15 98.4 F 73 20 155/87 H 07/04/20 06:24 98.2 F 68 18 07/03/20 21:24 98.1 F 68 07/03/20 15:00 98.2 F 61 16 130/62 BP Pulse Ox 07/04/20 09:50 97 07/04/20 09:40 98 07/04/20 09:30 100 07/04/20 09:20 99 07/04/20 09:12 95 07/04/20 07:15 97 07/04/20 06:24 151/88 H 97 07/03/20 21:24 153/92 H 100 07/03/20 15:00 97 Pain Intensity Lower Abdomen: Pain Intensity: 3 Transfer of Care Handoff Completed per policy Notes Mental Status: alert / awake / arousable and participated in evaluation Patient Amnestic to Procedure: Yes Nausea / Vomiting: adequately controlled Pain: adequately controlled Airway Patency, RR, SpO2: stable & adequate BP & HR: stable & adequate Hydration State: stable & adequate Anesthetic Complications: no major complications apparent and Pt Satisfied with anesthetic care
[2020-07-04] MEDS: METOPROLOL TARTRATE 25 MG TAB PO SCH ×2 (11:41→22:00)
[2020-07-04] MEDS: INSULIN ASPART 100 UNITS/ML 3 ML PEN SC SCH ×3 (11:41→22:06)
[2020-07-04] MEDS: LOSARTAN POTASSIUM 25 MG TAB PO SCH (11:41)
[2020-07-04] MEDS: AMIODARONE 200 MG TAB PO SCH ×2 (11:42→22:00)
[2020-07-04] MEDS: ROSUVASTATIN CALCIUM 20 MG TAB PO SCH (11:45)
[2020-07-04] MEDS: hydroCHLOROthiazide 25 MG TAB PO SCH (11:45)
[2020-07-04] MEDS: ASPIRIN 81 MG ECTAB PO SCH (11:45)
[2020-07-04] MEDS: oxyCODONE HCL IR 5 MG TAB (IMMEDIATE RELEASE) PO PRN ×2 (11:46→20:16)
--- NOTE | 2020-07-04 14:31 | Operative Report (OR) ---
DATE OF OPERATION: 07/04/2020 PREOPERATIVE DIAGNOSIS: Acute cholecystitis, cholelithiasis. POSTOPERATIVE DIAGNOSES: Acute cholecystitis, cholelithiasis. OPERATION: Laparoscopic cholecystectomy. SURGEON: Michaelle Troncoso MD. POULTRY DEBEAKER: Kaylee Stoll PA-C. ANESTHESIA: General. ESTIMATED BLOOD LOSS: About 10 mL. FINDINGS: Acute cholecystitis with cholelithiasis. COMPLICATIONS: None. INDICATIONS FOR THE PROCEDURE: This is a 54-year-old gentleman who was admitted to the hospital for acute cholecystitis with cholelithiasis. The patient is required to do laparoscopic cholecystectomy, possible open, possible cholangiogram. I did talk to the patient about the benefit, the risk, alternate procedure. I indicated the risks may include but not limited to such as bleeding, infection, injury to common bile duct, injury to the bowel, may need ERCP, myocardial infarction, DVT, stroke, even , incisional hernia. The patient understands. He signed informed consent and I answered all questions. DETAILS OF PROCEDURE: After we identified the patient and verified the procedure, we brought the patient to the OR, put the patient in the supine position. The patient received SCD on bilateral legs to prevent DVT. Also, patient received 3.375 grams of Zosyn IV for prophylactic antibiotic and the patient received general anesthesia without difficulty. The abdomen was prepped and draped in routine sterile fashion. After time-out, I injected local anesthesia by using 1% lidocaine mixed with 0.5% Marcaine just above the umbilicus. Then I made a small incision just above the umbilicus, opened fascia and opened peritoneum under direct vision, put a Josep trocar in, connected to CO2 to create pneumoperitoneum, flow rate at 6 liters per minute, pressure not more than 14 mmHg. Once we got a nice pneumoperitoneum, we put the camera in, looked around the abdomen. Normal finding on the liver, small bowel, large bowel; however, the gallbladder showed significant inflammation, gallbladder wall thickening, edema, confirmed the diagnosis of acute cholecystitis. Once we confirmed the diagnosis, we put another three 5 mm trocars in the right upper quadrant. Once all trocars in, we used the grasper to hold the base of gallbladder, put in the direction to the diaphragm, another grasper to hold the pouch of gallbladder, put a lateral to expose the triangle of Calot. The cystic duct was identified and mobilized. I put two 5 mm metal clips on the proximal cystic duct, one on the distal cystic duct, then used a scissor for transection of cystic duct. Rechecked, no active bleeding. The cystic artery was identified and mobilized. I put two 5 mm metal clips on the proximal cystic artery, one on the distal cystic artery, used a scissor for transection of cystic artery. Rechecked, no active bleeding. Then we used the Bovie to take down gallbladder from liver bed. Rechecked, no active bleeding, no bile leak from the liver bed. Then, we removed the gallbladder through the catch bag. Then we reinserted Josep trocar in, connected to CO2 to create pneumoperitoneum, again looked around the abdomen, no active bleeding, no bile leak from the liver bed. Then we removed all trocars under direct vision. No active bleeding from the trocar sites. Pneumoperitoneum was released, then I closed the umbilical incision fascial layer by using 0 Vicryl [id number] x2, closed subcutaneous layer by using 2-0 Vicryl interruptedly, closed skin by using 4-0 Vicryl continuous running, closed another three 5 mm trocar site skin only by using 4-0 Vicryl. Then, we put the dressing on. The patient tolerated the procedure well. All instrument, needle, sponge count were correct x2 at the end of the case. The patient was transferred to recovery room in stable condition. The specimen was sent to pathology. After the procedure, I did talk to the patient about the OR finding and the procedure we did, he understands. The golf player assistant, Kaylee, is necessary for this procedure. Her role is to hold the camera, retraction and exposure. I attest to the content of the Intraoperative Record and any orders documented therein. Any exception s are noted below.
--- NOTE | 2020-07-04 15:12 | Hospitalist Progress Note ---
Date of Service July 04, 2020 Assessment & Plan (1) Acute cholecystitis: Chest pain likely in the right upper quadrant could be acute cholecystitis Gallbladder ultrasound 06/30/2020 shows cholelithiasis and mild gallbladder distention with no sonographic Howe sign gallbladder wall thickening dilatory ductal dilatation. Incidental hepatic steatosis is noted Hepatobiliary scan performed 06/30/2020 shows normal study no evidence of cystic duct obstruction CT angiogram of the chest shows no evidence of musculoskeletal injury or pulmonary embolism s/p lap mau on 07/04/[address] Troncoso, no complications diet per surgery check labs in AM, might be ready for discharge tomorrow afternoon (2) Atrial fibrillation: Patient remains in atrial fibrillation metoprolol for rate control, resume anticoagulation tomorrow if okay with surgery (3) Diabetes: continue basal bolus insulin monitor for hypoglycemia diabetic diet (4) Hypertension: Metoprolol for atrial fibrillation continuing losartan in addition holding hydrochlorothiazide at this time as we are hydrating him with possible cholecystitis (5) Morbid obesity: This directly impacts his care physical examination and determination of exact etiology of his discomfort Admission and Anticipated Discharge Date Admission Date: June 30, 2020 Subjective patient doing fine after surgery, said he had some emesis post op but none since, has kept down fluids no chest pain, no dyspnea, no fever/chills minimal abdominal pain reviewed chart reviewed labs discussed that diet would be per surgery Review of Systems Review of Systems: All systems reviewed & are unremarkable except as noted in Subjective Gastrointestinal: + abdominal pain, + nausea and + vomiting; no constipation and no diarrhea/loose stools Physical Exam Constitutional: well developed, well nourished and + obese; no acute distress Neck: trachea midline, no thyromegaly Respiratory: normal respiratory effort, lungs clear to auscultation Cardiovascular: RRR, no murmur, no edema Gastrointestinal (Abdomen): normal bowel sounds, soft, nontender, no hepatosplenomegaly Musculoskeletal: no cyanosis or clubbing, extremities motor strength 5/5 Skin: no rashes, warm and dry Neurologic: patellar DTR's 2+ bilat, sensation intact and PERRL, EOMI, ac commodation nl, no face palsy, no dysarthria Psychiatric: A+Ox3, euthymic affect Lymphatic: no cervical or axillary lymphadenopathy Results & Data Results & Data ([facility]) Vital Signs (Past 12 Hours) Vital Signs Temp Pulse Pulse Pulse Resp BP BP 07/04/20 14:55 36.9 C 63 18 148/84 H 07/04/20 13:15 36.7 C 76 16 144/83 H 07/04/20 12:15 36.6 C 75 16 154/90 H 07/04/20 11:12 36.5 C 69 18 130/85 07/04/20 10:43 36.5 C 67 16 122/86 07/04/20 10:15 36.7 C 68 18 129/84 07/04/20 10:00 65 14 135/74 07/04/20 09:50 75 20 116/79 07/04/20 09:40 36.3 C L 71 20 110/62 07/04/20 09:30 71 16 118/75 07/04/20 09:20 72 16 121/71 07/04/20 09:12 36.1 C L 75 20 133/82 07/04/20 07:15 36.9 C 73 20 155/87 H 07/04/20 06:24 36.8 C 68 18 151/88 H Pulse Ox 07/04/20 14:55 96 07/04/20 13:15 92 07/04/20 12:15 94 07/04/20 11:12 94 07/04/20 10:43 91 07/04/20 10:15 94 07/04/20 10:00 100 07/04/20 09:50 97 07/04/20 09:40 98 07/04/20 09:30 100 07/04/20 09:20 99 07/04/20 09:12 95 07/04/20 07:15 97 07/04/20 06:24 97 Laboratory Results Laboratory Results - last 24 hr 07/03/20 07/03/20 07/04/20 17:18 21:14 06:23 WBC RBC Hgb Hct MCV MCH MCHC RDW Std Deviation RDW Coeff of Serena Plt Count MPV POC Glucose 106 H 133 H 101 H 07/04/20 07/04/20 07/04/20 06:29 07:07 09:14 WBC 6.37 RBC 4.70 Hgb 13.5 L Hct 41.3 L MCV 87.9 MCH 28.7 MCHC 32.7 RDW Std Deviation 46.1 RDW Coeff of Serena 14.3 Plt Count 304 MPV 9.2 POC Glucose 100 H 113 H 07/04/20 11:15 WBC RBC Hgb Hct MCV MCH MCHC RDW Std Deviation RDW Coeff of Serena Plt Count MPV POC Glucose 108 H Medications Administered Current Inpatient Medications Acetaminophen (Acetaminophen 500 Mg Tab) 1,000 mg PO Q6H PRN PRN Reason: pain Stop: 07/31/20 14:06 Last Admin: 07/03/20 12:45 Dose: 1,000 mg Documented by: Amiodarone HCl (Amiodarone 200 Mg Tab) 200 mg PO BID DREA Stop: 07/30/20 11:29 Last Admin: 07/04/20 11:42 Dose: 200 mg Documented by: Aspirin (Aspirin 81 Mg Ectab) 81 mg PO DAILY DREA Stop: 08/03/20 10:27 Last Admin: 07/04/20 11:45 Dose: 81 mg Documented by: Dextrose (Dextrose 50% 50 Ml Syringe) 25 - 50 ml IV UD PRN; Protocol PRN Reason: Hypoglycemia Protocol Stop: 07/30/20 11:16 Glucagon (Glucagon For Inj 1 Mg Vial) 1 mg SQ UD PRN; Protocol PRN Reason: Hypoglycemia Protocol Stop: 07/30/20 11:16 Glucose (Glucose 10 Tabs/Tube) 4 - 8 tabs PO UD PRN; Protocol PRN Reason: Hypoglycemia Protocol Stop: 07/30/20 11:16 Glucose (Glucose 40% Gel 15 Gm Tube) 15 - 30 gm PO UD PRN; Protocol PRN Reason: Hypoglycemia Protocol Stop: 07/30/20 11:16 Hydralazine HCl (Hydralazine Hcl 20 Mg/Ml Vial) 10 mg IV Q8 PRN PRN Reason: Blood Pressure - High Stop: 07/30/20 11:16 Hydrochlorothiazide (Hydrochlorothiazide 25 Mg Tab) 25 mg PO DAILY DREA Stop: 08/03/20 10:27 Last Admin: 07/04/20 11:45 Dose: 25 mg Documented by: Lactated Ringer's (Lr) 1,000 mls @ 80 mls/hr IV .[id number] DREA Stop: 07/30/20 08:29 Last Infusion: 07/04/20 07:00 Dose: Infused Documented by: Piperacillin Sod/Tazobactam (Sod 4.5 gm/ Dextrose) 120 mls @ 30 mls/hr IV Q8H [facility]; Protocol Stop: 07/10/20 13:59 Last Infusion: 07/04/20 11:38 Dose: Infused Documented by: Insulin Aspart (Insulin Aspart 100 Units/Ml 3 Ml Pen) 0 units SC ACHS DREA Stop: 08/03/20 11:29 Last Admin: 07/04/20 11:41 Dose: Not Given Documented by: Losartan Potassium (Losartan Potassium 25 Mg Tab) 25 mg PO DAILY [facility] Stop: 07/30/20 11:29 Last Admin: 07/04/20 11:41 Dose: 25 mg Documented by: Metoprolol Tartrate (Metoprolol Tartrate 25 Mg Tab) 25 mg PO BID [facility] Stop: 07/30/20 11:29 Last Admin: 07/04/20 11:41 Dose: 25 mg Documented by: Miscellaneous (Carbohydrates For Hypoglycemia ) 15 - 30 gm PO UD PRN PRN Reason: Hypoglycemia Protocol Stop: 07/30/20 11:16 Miscellaneous Information (Piperacill/Tazobac Consult Active) 1 ea N/A UD PRN PRN Reason: Consult Stop: 07/30/20 08:20 Morphine Sulfate (Morphine Sulfate 2 Mg/Ml Carp) 2 mg IV Q4 PRN; Protocol PRN Reason: Pain Stop: 07/14/20 08:20 Last Admin: 07/01/20 22:22 Dose: 2 mg Documented by: Morphine Sulfate (Morphine Sulfate 4 Mg/Ml 1 Ml Carp\Vial) 4 mg IV Q4 PRN; Protocol PRN Reason: Pain Stop: 07/14/20 11:16 Ondansetron HCl (Ondansetron Inj 2 Mg/Ml 2 Ml Vial) 4 mg IV Q6H PRN PRN Reason: Nausea Stop: 07/30/20 11:16 Last Admin: 07/03/20 09:02 Dose: 4 mg Documented by: Oxycodone HCl (Oxycodone Hcl Ir 5 Mg Tab (Immediate Release)) 10 mg PO Q6H PRN PRN Reason: Moderate Pain Stop: 07/16/20 11:06 Last Admin: 07/04/20 11:46 Dose: 10 mg Documented by: Rosuvastatin Calcium (Rosuvastatin Calcium 20 Mg Tab) 40 mg PO DAILY [facility] Stop: 08/03/20 10:27 Last Admin: 07/04/20 11:45 Dose: 40 mg Documented by: Warfarin Sodium (Warfarin Sod 6 Mg Tab) 6 mg PO DAILY@1600 DREA Stop: 08/03/20 15:59 PG Care Time/CCT Total # of Minutes Spent Total Time Spent with Patient: Total time spent is greater than 50% in coordination of care (as documented) at patient's floor/unit and/or counseling patient: Coding Level of Care Code 09657 Subseq Hosp Care Lvl 2 Diagnoses Acute cholecystitis K81.0 Atrial fibrillation I48.91 Diabetes E11.9 Hypertension I10 Morbid obesity E66.01
[2020-07-04] MEDS: WARFARIN SOD 6 MG TAB PO SCH (16:31)
[2020-07-04] MEDS: LACTATED RINGER'S 1,000 ML IV SCH ×2 (18:25→20:16)
[2020-07-05] MEDS: PIPERACILLIN/TAZOBACTAM 4.5 GM in DEXTROSE 5% 100 ML IV SCH ×2 (01:49→10:47)
[2020-07-05] MEDS: oxyCODONE HCL IR 5 MG TAB (IMMEDIATE RELEASE) PO PRN (03:13)
[2020-07-05] MEDS: ACETAMINOPHEN 500 MG TAB PO PRN (07:28)
[2020-07-05 08:14] LABS: Basophils # (auto) 0.02 K/uL (0-0.2); Basophils % (auto) 0.3 %; Eosinophils # (auto) 0.39 K/uL (0-0.5); Eosinophils % (auto) 5.1 %; Hematocrit (blood only) 39.3 % (42-52); Hemoglobin 12.6 g/dL (14.0-18.0); Immature Granulocytes # (auto) 0.03 K/uL (0.00-0.02); Immature Granulocytes % (auto) 0.4 %; Lymphocytes # (auto) 2.05 K/uL (1.2-3.4); Lymphocytes % (auto) 26.8 %; Mean Corpuscular Hemoglobin 28.8 pg (25-34); Mean Corpuscular Hgb Conc 32.1 g/dL (32-36); Mean Corpuscular Volume 89.7 fL (80-100); Mean Platelet Volume 9.4 fL (7.4-10.4); Monocytes # (auto) 0.61 K/uL (0.11-0.59); Neutrophils # (auto) 4.56 K/uL (1.4-6.5); Neutrophils % (auto) 59.4 %; Platelet Count 298 K/uL (130-400); RDW Coefficient of Variation 14.5 % (11.5-14.5); RDW Standard Deviation 47.4 fL (36.4-46.3); Red Blood Count 4.38 M/uL (4.7-6.1); White Blood Count 7.66 K/uL (4.8-10.8)
[2020-07-05 08:54] LABS: Albumin Globulin Ratio 0.9 (0.9-2); Albumin Level 2.9 gm/dl (3.4-5.0); BUN Creatinine Ratio 5.6 (10-20); Bilirubin,Total 0.5 mg/dl (0.2-1); Calcium 8.5 mg/dl (8.5-10.1); Creatinine Clr Calc Pharmacy 91.3 ml/min; Est GFR (African American) 86.1; Est GFR (Non-African American) 74.3; Globulin 3.1 gm/dl (2.5-4.0); Potassium 4.6 mmol/L (3.5-5.1)
[2020-07-05] MEDS: LACTATED RINGER'S 1,000 ML IV SCH (09:06)
[2020-07-05] MEDS: METOPROLOL TARTRATE 25 MG TAB PO SCH (09:10)
[2020-07-05] MEDS: ROSUVASTATIN CALCIUM 20 MG TAB PO SCH (09:12)
[2020-07-05] MEDS: hydroCHLOROthiazide 25 MG TAB PO SCH (09:12)
[2020-07-05] MEDS: ASPIRIN 81 MG ECTAB PO SCH (09:12)
[2020-07-05] MEDS: LOSARTAN POTASSIUM 25 MG TAB PO SCH (09:12)
[2020-07-05] MEDS: INSULIN ASPART 100 UNITS/ML 3 ML PEN SC SCH ×2 (09:59→12:42)
[2020-07-05] MEDS: AMIODARONE 200 MG TAB PO SCH (10:02)
--- NOTE | 2020-07-05 12:00 | Progress Note ---
Date of Service F/U S/P laparoscopic cholecystectomy, POD 1. pt is doing fine, no significant abdominal pain, no nausea, no vomiting, tolerated lisha diet, no fever, July 05, 2020 Assessment & Plan (1) Acute cholecystitis due to biliary calculus: pt is a 54 year-old male who presents to ER with chest pain, U/S study diagnosis- acute cholecystitis with gallstone. IMP: Acute cholecystitis, cholelithiasis, Plan, medicine team will admit pt to hospital, IV fluid, clear diet, iv antibio tic, zosyn, Hold coumadin for 4 days, SCD, repeat labs, INR, PT , I plan to do laparoscopic cholecystectomy possible open or cholangiogram on 7:30 AM 07/04/2020, NPO after MN on 07/03/2020. D/W Benefits, risks and alternatives of the surgery, pt understood, he agrees with the plan, I answered all questions, will F/U 07/01/2020 1:08PM doing better, less abdominal pain, I recommend to do laparoscopic cholecystectomy, possible open or cholangiogram, D/w benefits, risks and alternatives of the surgery, the risks - infection, bleeding, injury CBD, or bowel, may need ERCP, pt understood, he agrees with the surgery, I answered all questions, hold coumadin now, regular diet now, NPO after MN on 07/03/2020 07/05/2020 11:58AM S/P lap mau, POD 1 doing fine, pt can be discharged today, keep the dressing on for 3 days, he can take a shower on 07/08/2020 no heavy lifting > 25 LBS for 4 weeks, F/U wy 2 weeks, Thanks, Admission and Anticipated Discharge Date Admission Date: June 30, 2020 Supervising Physician Co-Signing Physician Notes As per Kalen Henry physician state tested nursing assistant The patient is without any complaints no nausea except minimal abdominal pain The abdomen is benign minimal right upper quadrant guarding For surgery tomorrow with Dr. Troncoso Subjective patient doing fine after surgery, said he had some emesis post op but none since, has kept down fluids no chest pain, no dyspnea, no fever/chills minimal abdominal pain reviewed chart reviewed labs discussed that diet would be per surgery Review of Systems Constitutional: as per Subjective / HPI Eyes: as per Subjective / HPI Ear, Nose, Mouth, Throat: as per Subjective / HPI Respiratory: as per Subjective / HPI Cardiovascular: as per Subjective / HPI Additional Comments: HTN, Gastrointestinal: as per Subjective / HPI Genitourinary: + as per Subjective / HPI Musculoskeletal: as per Subjective / HPI Integumentary: as per Subjective / HPI Neurologic: as per Subjective / HPI Psychiatric: as per Subjective / HPI Endocrine: as per Subjective / HPI DM Hematologic / Lymphatic: as per Subjective / HPI Allergy / Immunological: as per Subjective / HPI Physical Exam Constitutional: WD/WN, vitals as above Eyes: PERRL, conjunctivae normal, anicteric sclerae ENMT: external ear and nose normal, oropharynx normal Neck: trachea midline, no thyromegaly Respiratory: normal respiratory effort, lungs clear to auscultation normal respiratory effort Cardiovascular: RRR, no murmur, no edema Rate/Rhythm: regular rate and regular rhythm Gastrointestinal (Abdomen): normal bowel sounds, soft, nontender, no hepatosplenomegaly Percussion/Palpation: abdomen soft all incisions intact, no redness, no drainage, Musculoskeletal: no cyanosis or clubbing, extremities motor strength 5/5 Skin: no rashes, warm and dry Neurologic: awake Psychiatric: Orientation: alert and oriented x 3 Results & Data ([facility]) Vital Signs (Past 12 Hours) Vital Signs Temp Pulse Resp BP Pulse Ox 07/05/20 07:49 36.7 C 59 L 16 122/83 93 07/05/20 06:49 36.7 C 67 16 115/76 90 07/05/20 03:00 36.4 C L 62 16 159/80 H 96 Laboratory Results Abnormal lab results 07/04/20 07/04/20 07/05/20 Range/Units 17:16 20:39 07:35 RBC 4.38 L (4.7-6.1) M/uL Hgb 12.6 L (14.0-18.0) g/dL Hct 39.3 L (42-52) % RDW Std Deviation 47.4 H (36.4-46.3) fL Gibson # (Auto) 0.61 H (0.11-0.59) K/uL Immature Gran # (Auto) 0.03 H (0.00-0.02) K/uL Chloride (98-107) mmol/L Carbon Dioxide (21-32) mmol/L BUN (7-18) mg/dl BUN/Creatinine Ratio (10-20) POC Glucose 117 H 101 H (70-99) mg/dl Alkaline Phosphatase (45-117) U/L Total Protein (6.4-8.2) gm/dl Albumin (3.4-5.0) gm/dl 07/05/20 Range/Units 07:35 RBC (4.7-6.1) M/uL Hgb (14.0-18.0) g/dL Hct (42-52) % RDW Std Deviation (36.4-46.3) fL Gibson # (Auto) (0.11-0.59) K/uL Immature Gran # (Auto) (0.00-0.02) K/uL Chloride 108 H (98-107) mmol/L Carbon Dioxide 33 H (21-32) mmol/L BUN 6 L (7-18) mg/dl BUN/Creatinine Ratio 5.6 L (10-20) POC Glucose (70-99) mg/dl Alkaline Phosphatase 128 H (45-117) U/L Total Protein 6.0 L (6.4-8.2) gm/dl Albumin 2.9 L (3.4-5.0) gm/dl
--- NOTE | 2020-07-05 14:55 | Discharge Summary ---
Date of Service July 05, 2020 Admission HPI Per Admitting Provider 54-year-old male who presents to the emergency department from [facility] for evaluation of chest/ abdomen pain. The patient states that the pain started about 4 hours prior to arrival. He states that he was trying to go to bed when the pain started. Initially, pain was right-sided and sharp. He had some associated diaphoresis and vomiting. He has felt short of breath. He states that the is reproducible. He was given aspirin in route. on exam his pain is out of porpotion to physical findings, and he has some faint bruise on his lower right rib cage. He denies any recent cough, fever or shortness of breath. He does report that about a month ago, he had a few episodes of passing out associated with some chest pain. He was evaluated by the medical unit for this but had no further work-up. there is some concern for gall bladder disease and will have surgical evaluation Principal Diagnosis Acute cholecystitis Discharge Exam Constitutional well developed, well nourished and + obese; no acute distress Neck trachea midline, no thyromegaly Respiratory normal respiratory effort, lungs clear to auscultation Cardiovascular RRR, no murmur, no edema Gastrointestinal (Abdomen) normal bowel sounds, soft, nontender, no hepatosplenomegaly Musculoskeletal no cyanosis or clubbing, extremities motor strength 5/5 Skin no rashes, warm and dry Neurologic patellar DTR's 2+ bilat, sensation intact and PERRL, EOMI, accommodation nl, no face palsy, no dysarthria Psychiatric A+Ox3, euthymic affect Lymphatic no cervical or axillary lymphadenopathy Discharge Data Allergies Allergy/AdvReac Type Severity Reaction Status Date / Time No Known Allergies Allergy Unverified 06/30/20 07:15 Consultations 06/30/20 08:23 ED Decision to Admit Stat 06/30/20 11:17 Consult General Surgery Routine 06/30/20 11:23 Consult General Surgery Routine Procedures Performed Operation Date: 07/04/20 07:00 Actual Procedures p Laparoscopic Cholecystectomy(Not Applicable) - Michaelle Troncoso MD Ordered Studies 06/30/20 03:46 US gallbladder Urgent 07/01/20 09:17 CT angio chest PE protocol Routine Hospital Course (1) Acute cholecystitis: Chest pain likely in the right upper quadrant could be acute cholecystitis Gallbladder ultrasound 06/30/2020 shows cholelithiasis and mild gallbladder distention with no sonographic Howe sign gallbladder wall thickening dilatory ductal dilatation. Incidental hepatic steatosis is noted Hepatobiliary scan performed 06/30/2020 shows normal study no evidence of cystic duct obstruction CT angiogram of the chest shows no evidence of musculoskeletal injury or pulmonary embolism s/p lap mau on 07/04/[address] Troncoso, no complications diet per surgery, tolerated low fat diet today, no pain, no nausea/vomiting labs and vitals are stable discharge instructions provided by Dr. Troncoso (2) Atrial fibrillation: Patient remains in atrial fibrillation metoprolol for rate control, resume anticoagulation (3) Diabetes: continue basal bolus insulin monitor for hypoglycemia, no episodes diabetic diet (4) Hypertension: Metoprolol for atrial fibrillation continuing losartan in addition holding hydrochlorothiazide at this time as we are hydrating him with possible cholecystitis (5) Morbid obesity: This directly impacts his care physical examination and determination of exact etiology of his discomfort Total Time Total Time Spent Total Time Spent (In Minutes): 31 Total Time Includes: Examination of the Patient, Discharge Planning, Medication Reconciliation and Communication With Other Providers (spoke with provider at [facility]) Discharge Plan Discharge Items [facility]position[facility] Reason For Visit: ABD PAIN Discharge Diagnosis: S/P laparoscopic cholecystectomy Condition on Discharge: Good Activity: As commented below Lifting: No more than 25 pounds Lifting Comment: for 4 weeks Bathing: May shower/bathe in 3 days Sexual Activity: After two weeks Exercise/Sports: Rest today Non-emergency contact: Surgeon Call non-emergency contact if: you have any medication questions, your symptoms worsen, your pain is not controlled, your pain is worsening, your pain is unusual for you and your pain is concerning for you Follow-up/Referrals: Steph BAKER [Primary Care Provider] - (follow up Dr. Troncoso 2 weeks, Agree-I have documented within the medical record.) Diet: Low Fat Addtl Attending Provider Instructions: see instructions below from surgeon can use Oxycodone PRN for pain or Ultram PRN, whatever is on formulatry at [facility] Addtl Process Mechanic Provider Instructions: Post-Surgical ~Discharge Instructions Activity Recommendations: - lifting limitation: (25 pounds for 4 weeks), - exercise/sex/sports limit: (nonstrenuous for 2 weeks), - driving or machine use limit: (none for 1 week), - Shower/bathe limit: (may shower beginning 07/08/20 ) Diet: - Resume previous diet SPECIAL CARE INSTRUCTIONS: - May shower on 07/08/2020. Sponge bath and wash hair in meantime. On Saturday, you may shower and let water run over area and pat dry. - Leave steri strips on for one week and then remove. - Call the surgeon's office with any questions or concerns - - (ex. temperature higher than 101 degrees F, excessive bleeding or pain). MEDICATIONS: - Resume previous medications unless instructed otherwise by your surgeon. - Ibuprofen 600 mg every 6 hours with food FOLLOW UP VISIT: - If not already scheduled, please call the office to schedule a two week follow-up appointment. Office number Pending Studies at Discharge: Yes Stand-Alone Forms: My [facility] Skilled Items Patient informed of condition?: Yes Discharge Level of Care: Other Communicable Disease: No Discharge Prognosis: Stable Lines: None Urinary Catheter: No Medications and DC Order Prescriptions: New oxycodone 5 mg Tablet 5 - 10 mg PO Q6H PRN (Reason: pain) Qty: 20 RF: 0 Continued amiodarone 200 mg Tablet 200 mg PO BID RF: 0 aspirin 81 mg Tablet,Delayed Release (Dr/Ec) 81 mg PO DAILY RF: 0 warfarin 6 mg Tablet 6 mg PO DAILY RF: 0 losartan 25 mg Tablet 25 mg PO DAILY RF: 0 hydrochlorothiazide 25 mg Tablet 25 mg PO DAILY RF: 0 rosuvastatin 40 mg Tablet 40 mg PO DAILY RF: 0 metoprolol tartrate 25 mg Tablet 25 mg PO BID RF: 0 Novolin 70-30 FlexPen U-100 100 unit/mL (70-30) Insulin Pen 40 - 45 unit SUBCUT BID RF: 0 Discharge Orders: Discharge Order (Routine); Ordered 07/05/20 Ordered By: Duran Brian/Other Patient Handouts: Managing Type 2 Diabetes Admission Data Admit Date/Time: 06/30/20 08:21 Attending Provider: Duran Maldonado Admit Provider: Joel Salazar Primary Care Provider: Steph BAKER Other Providers: Michaelle Troncoso ; Joel Salazar Other Interventions: Discharge Summary Assessment (RN) Last Done: 07/05/20 15:21 Coding Level of Care Code D/C Day Management >30 mins Diagnoses Acute cholecystitis K81.0 Atrial fibrillation I48.91 Diabetes E11.9 Hypertension I10 Morbid obesity E66.01
[2020-07-05] MEDS: WARFARIN SOD 6 MG TAB PO SCH (15:41)
== END 2020-07-05 16:59 | DRG 418 ==
LOC: ED 03:26 → 3E 03:26 → SUATTDRO 08:21 → OBSVTOIN 08:21 → 3E 10:43

== ENCOUNTER 2021-08-24 12:16 | Observation (INO) ==
[2021-08-24] MEDS ORDERED: ONDANSETRON INJ 2 MG/ML 2 ML VIAL IV STA (12:26)
[2021-08-24] MEDS ORDERED: SODIUM CHLORIDE 0.9% 1000ML 1,000 ML IV SCH ×2 (12:30)
[2021-08-24 12:41] LABS: iSTAT Creatinine 1.4 mg/dl (0.6-1.3); iSTAT Ionized Calcium 1.07 mmol/l (1.12-1.32); iSTAT Potassium 4.2 mmol/L (3.3-5.0)
--- NOTE | 2021-08-24 13:00 | CT Scan Report ---
CT SCAN OF THE BRAIN WITHOUT IV CONTRAST CLINICAL HISTORY: Change in mental status. Unresponsive. COMPARISON STUDY: No priors. TECHNIQUE: Unenhanced axial CT scan of the brain is performed from the vertex to the skull base. A d ose lowering technique was utilized adhering to the principles of ALARA. CT DOSE: 690.05 mGycm FINDINGS: Brain parenchyma: There is minimal microangiopathic change. There is no hemorrhage, mass effect, or e vidence of acute territorial ischemia by CT criteria. Pimentel-white matter differentiation is preserved. No extra-axial fluid collection is seen. Ventricles, sulci, cisterns: Normal in configuration. Intracranial vasculature: The visualized intracranial vasculature at the skull base is normal in appe arance. Calvarium: Unremarkable. Sinuses and mastoids: There is mild mucosal thickening within the ethmoid sinuses. The remaining visu alized paranasal sinuses are clear. The mastoid air cells are well pneumatized. Orbits: The bony orbits are grossly intact. IMPRESSION: There is no hemorrhage, mass effect, or evidence of acute territorial ischemia by CT ney nevarez. ACT 112: Negative or not required by law. Electronically signed by: Dc Morgan M.D. 08/24/2021 12:59 PM
--- NOTE | 2021-08-24 13:07 | CT Scan Report ---
CT abd pelvis wo con CLINICAL HISTORY: lower abd pain, diarrhea, hypotension,AMS COMPARISON STUDY: No previous studies for comparison. CT DOSE: 1064.25 mGycm TECHNIQUE: Standard CT of the Abdomen and Pelvis was performed without IV contrast. The patient did not receive oral contrast. A dose lowering technique was utilized adhering to the principles of TIFFANIE Muhammad. FINDINGS: Lung base: The lung bases are clear. Abdominal cavity: There is no evidence for abdominal mass, adenopathy or ascites. There is a small le ft inguinal hernia containing peritoneal fat. Liver: The liver is homogeneous in attenuation on these limited noncontrast images.. Spleen: The spleen is homogeneous in attenuation on these limited noncontrast images. Pancreas: The pancreas is homogeneous in attenuation on these limited noncontrast images. Gall Bladder: Surgical clips are present. Adrenal glands: The adrenal glands are normal in size and attenuation on these limited noncontrast im ages. Kidneys: The kidneys are homogeneous in attenuation on these limited noncontrast images. There is no evidence for gross renal mass, calculus or hydronephrosis bilaterally. Bowel: There is evidence for small hiatal hernia. The stomach is distended with liquid and food stuff . There are fluid-filled loops of small bowel seen throughout the abdomen and pelvis with scattered f luid levels present. There is no evidence for disproportionate dilatation or obstruction. The finding s are most characteristic of ileus versus gastroenteritis. There are also fluid-filled loops of large bowel with scattered fluid levels seen. There are no inflammatory changes present. There is no evide nce for free air. There is a normal appendix in the right lower quadrant. Bladder: There is no evidence for focal bladder wall thickening, calculus or diverticulum. : There is no evidence for pelvic mass or adenopathy. Vasculature: There is no evidence for focal aneurysmal dilatation of the abdominal aorta. Osseous structures: There is no acute osseous pathology. There is degenerative change involving the l ower lumbar spine. IMPRESSION: 1. Fluid-filled loops of small bowel with scattered fluid levels present. No disproportionate dilatat ion or obstruction is seen. The findings are most characteristic of an ileus versus gastroenteritis. 2. There is also fluid and fluid level seen within the colon. 3. Additional nonacute findings are delineated above. ACT 112: Negative or not required by law. Electronically signed by: Homero White M.D. 08/24/2021 1:05 PM
[2021-08-24 13:16] LABS: Basophils # (auto) 0.02 K/uL (0-0.2); Basophils % (auto) 0.1 %; Eosinophils # (auto) 0.19 K/uL (0-0.5); Eosinophils % (auto) 1.2 %; Hematocrit (blood only) 49.9 % (42-52); Hemoglobin 16.2 g/dL (14.0-18.0); Immature Granulocytes # (auto) 0.11 K/uL (0.00-0.02); Immature Granulocytes % (auto) 0.7 %; Lymphocytes # (auto) 1.78 K/uL (1.2-3.4); Lymphocytes % (auto) 10.8 %; Mean Corpuscular Hgb Conc 32.5 g/dL (32-36); Mean Corpuscular Volume 86.3 fL (80-100); Mean Platelet Volume 9.6 fL (7.4-10.4); Monocytes % (auto) 4.3 %; Neutrophils # (auto) 13.62 K/uL (1.4-6.5); Neutrophils % (auto) 82.9 %; Platelet Count 505 K/uL (130-400); RDW Coefficient of Variation 14.8 % (11.5-14.5); RDW Standard Deviation 46.6 fL (36.4-46.3); Red Blood Count 5.78 M/uL (4.7-6.1); White Blood Count 16.42 K/uL (4.8-10.8)
--- NOTE | 2021-08-24 13:16 | XRay Report ---
XR chest 1V portable HISTORY: 55 years-old Male weakness acute weakness COMPARISON: Chest radiograph 07/27/2020 TECHNIQUE: Portable AP view of the chest FINDINGS: The cardiac silhouette is enlarged. Lungs are mildly hypoinflated. Coarsened interstitium is likely s econdary to the patient's body habitus. There is no pneumothorax, pleural effusion, airspace consolid ation or overt pulmonary edema. Degenerative changes of the shoulders and spine. Gaseous distention o f the stomach. IMPRESSION: Cardiomegaly without acute process. ACT 112: Negative or not required by law. The above report was generated using voice recognition software. It may contain grammatical, syntax o r spelling errors. Electronically signed by: Darius Nagy M.D. 08/24/2021 1:15 PM
--- NOTE | 2021-08-24 13:21 | Emergency Department Note ---
Impression & Plan AMS (altered mental status), Acute hypotension, Abdominal pain, lower, Ileus, Nausea & vomiting ED Provider Note INFORMANT: Patient, EMS ED PROVIDER(S): Avel Ann MD CHIEF COMPLAINT: Altered mental status PLAN: Disposition: Admitted Condition: Good Outpatient prescription management: none Referral: None MEDICAL DECISION MAKING: Patient presented with altered mental status complaints. He was mildly hypotensive. He had vomiting and diarrhea. He denied any overdose. No reports of trauma. Head CT imaging as well as CT abdomen pelvis did not reveal any traumatic findings. No signs of stroke on CT imaging of the head. There was an ileus versus enteritis noted on CT scan of the abdomen and pelvis. Patient's i- STAT was unremarkable. He did receive saline hydration with a bolus. Patient was also given Zofran for his nausea. Patient did require second bolus. He had a leukocytosis on CBC. Mild renal insufficiency was noted. He will need further management in the hospital including hydration. Case was discussed with the [facility] hospitalist. Patient was admitted for further management. Triage Nursing notes reviewed and agree them. Vital Signs: reviewed and remarkable for hypotension Differential diagnosis: Infection, hypoglycemia, electrolyte abnormalities, overdose, toxicologic, cardiac sources, intracerebral event, neurologic, trauma, as well as other pathologies. Diagnostics interpreted by me: EC Lead ECG performed and revealed Normal sinus rhythm at 87 bpm normal [place], QRS normal. No elevation or depression. No PACs or PVCs Cardiac Monitoring: Cardiac monitoring ordered by me: The patient was placed on continuous cardiac monitoring and observed. It revealed a normal sinus rhythm at 79 beats per minute without ectopy or evidence of dysrhythmia. Imaging studies: Chest x-ray. Findings: A chest x-ray was performed and revealed no pneumothorax, effusion, infiltrate, pulmonary edema, free air under the diaphragm, or wide mediastinum. Impression: No acute disease. Moderate gastric bubble noted. CT imaging of the head negative. CT imaging of the abdomen pelvis reveals findings consistent with ileus versus enteritis. HPI: The patient is a 55 year old male prisoner who presents to the Emergency Room with altered mental status. The patient was reportedly found in his cell and was somewhat altered. He had generalized weakness, vomiting and diarrhea. Patient states he felt well yesterday. [facility] And he had some slurred speech. His blood pressure was noted to be low and he was mildly tachycardic. EMS was summoned. The patient also notes the following associated symptoms, nausea. EMS noted that present reported the patient had 6 pills of his metformin missing. Patient denies taking any extra medication. The patient was given no medication for relieving factors. Current pain is rated as 2/10. Pt denies LOC, headache, fevers, chills, diaphoresis, visual changes, neck pain, chest pain, breathing difficulties, back pain, melena, hematochezia, urinary symptoms, numbness, lymphadenopathy, rash, or other complaints. ROS: See above HPI for pertinent positives & negatives. A total of 10 systems reviewed and were otherwise negative. PAST MEDICAL HISTORY:See Below , diabetes PAST SURGICAL HISTORY:See Below, cholecystectomy FAMILY HISTORY:See Below SOCIAL HISTORY:See Below, incarcerated HOME MEDICATIONS:See Below ALLERGIES:See Below VITALS:See Below PHYSICAL EXAMINATION: GENERAL: Awake, tired-appearing, in no distress HENT: Normocephalic, atraumatic. Oropharynx unremarkable. EYES: Normal conjunctiva. Sclera non-icteric. NECK: Inspection normal. Non-tender. Supple. No nuchal rigidity. FROM. No masses. RESPIRATORY: Clear to auscultation. No wheezes. No rales. Normal respiratory effort. CARDIAC: Borderline tachycardic rate. Normal rhythm. No murmurs. No rubs. Extremities warm and well perfused. Pulses equal. No JVD. GI: Soft, non-distended. Left lower quadrant tenderness to palpation. No rebound or guarding. No masses. RECTAL: Deferred. MUSCULOSKELETAL: Atraumatic. Chest examination reveals no tenderness. The back is symmetrical on inspection without obvious abnormality. There is no CVA tenderness to palpation. No joint edema. LOWER EXTREMITIES: Calves are equal size bilaterally and non-tender. No edema. No discoloration. NEURO: Normal sensorium. No sensory or motor deficits noted. Speech normal but slow to answer. SKIN: No rash or jaundice noted. Avel Ann MD Past Med/Surg History Medical History Dyslipidemia Hypertension Surgical History No significant past surgical history Social History Smoking Status: Never smoker Do You Dip or Chew Tobacco: No; Hx Alcohol Use: No Hx Substance Use: No Preferred Language: Danish Communication Ability: Effective Mineral Engineer Required: No Beliefs That Will Affect Care: None Current Living Situation: Other Current Living Situation Comment: OLIVIA Choi Other Information That Helps Us Care for You: No Feels Safe at Home: Yes Safety Concerns: Feels Safe At This Time Assistive Devices: Denture - Upper and Denture - Lower Allergies Allergies Allergy/AdvReac Type Severity Reaction Status Date / Time No Known Allergies Allergy Unverified 08/24/21 14:06 Home Meds Home Medications Medication Instructions Recorded Confirmed aspirin 81 mg tablet,delayed 81 mg PO DAILY 06/30/20 08/24/21 release albuterol sulfate 90 mcg/actuation 2 puff INHALATION QID PRN 08/24/21 08/24/21 aerosol inhaler (Proventil HFA) amoxicillin 875 mg-potassium 1 tab PO BID 08/24/21 08/24/21 clavulanate 125 mg tablet lisinopril 20 1 tab PO DAILY 08/24/21 08/24/21 mg-hydrochlorothiazide 12.5 mg tablet metformin 1,000 mg tablet 1,000 mg PO BID 08/24/21 08/24/21 Results & Data (ED) Vital Signs Vital Signs - 24 hr 08/24/21 12:26 08/24/21 12:28 08/24/21 12:30 Temperature 36.5 C Temperature Source Oral Pulse Rate 79 84 80 Pulse Rate [Apical] Respiratory Rate 13 16 16 Blood Pressure 108/81 Blood Pressure [Left Arm] Blood Pressure Mean 90 Blood Pressure Mean [Left Arm] Pulse Oximetry 98 98 98 Oxygen Delivery Method Room Air Room Air Room Air Sepsis Recent Fever Within 48 Hours No Sepsis New/Unexplained Change in Mental Status N/A Sepsis Action Taken by Nursing No Action Required 08/24/21 12:37 08/24/21 12:56 08/24/21 12:57 Temperature Temperature Source Pulse Rate 81 83 Pulse Rate [Apical] 79 Respiratory Rate 16 16 16 Blood Pressure Blood Pressure [Left Arm] 98/61 L Blood Pressure Mean Blood Pressure Mean [Left Arm] 73 Pulse Oximetry 99 97 Oxygen Delivery Method Room Air Room Air Sepsis Recent Fever Within 48 Hours Sepsis New/Unexplained Change in Mental Status Sepsis Action Taken by Nursing 08/24/21 12:58 08/24/21 13:00 08/24/21 13:26 Temperature Temperature Source Pulse Rate 83 76 78 Pulse Rate [Apical] Respiratory Rate 19 12 14 Blood Pressure 98/61 L 99/60 L Blood Pressure [Left Arm] Blood Pressure Mean 73 73 Blood Pressure Mean [Left Arm] Pulse Oximetry 97 98 97 Oxygen Delivery Method Room Air Room Air Room Air Sepsis Recent Fever Within 48 Hours Sepsis New/Unexplained Change in Mental Status Sepsis Action Taken by Nursing 08/24/21 13:28 08/24/21 13:30 08/24/21 13:45 Temperature Temperature Source Pulse Rate 75 79 Pulse Rate [Apical] Respiratory Rate 14 12 Blood Pressure Blood Pressure [Left Arm] 99/60 L Blood Pressure Mean Blood Pressure Mean [Left Arm] 73 Pulse Oximetry 96 98 Oxygen Delivery Method Room Air Room Air Sepsis Recent Fever Within 48 Hours Sepsis New/Unexplained Change in Mental Status Sepsis Action Taken by Nursing 08/24/21 14:00 08/24/21 14:11 08/24/21 14:15 Temperature Temperature Source Pulse Rate 81 76 80 Pulse Rate [Apical] Respiratory Rate 13 18 13 Blood Pressure 110/59 L Blood Pressure [Left Arm] Blood Pressure Mean 76 Blood Pressure Mean [Left Arm] Pulse Oximetry 100 95 96 Oxygen Delivery Method Room Air Room Air Room Air Sepsis Recent Fever Within 48 Hours Sepsis New/Unexplained Change in Mental Status Sepsis Action Taken by Nursing 08/24/21 14:30 08/24/21 14:45 08/24/21 15:00 Temperature Temperature Source Pulse Rate 79 82 82 Pulse Rate [Apical] Respiratory Rate 12 16 13 Blood Pressure Blood Pressure [Left Arm] Blood Pressure Mean Blood Pressure Mean [Left Arm] Pulse Oximetry 99 94 94 Oxygen Delivery Method Room Air Room Air Room Air Sepsis Recent Fever Within 48 Hours Sepsis New/Unexplained Change in Mental Status Sepsis Action Taken by Nursing Laboratory Data Result diagrams: 08/24/21 12:23 08/24/21 12:23 Lab Results 08/24/21 08/24/21 08/24/21 Range/Units 12:23 12:23 12:23 WBC 16.42 H (4.8-10.8) K/uL RBC 5.78 (4.7-6.1) M/uL Hgb 16.2 (14.0-18.0) g/dL POC Hgb (14.0-18.0) g/dl Hct 49.9 (42-52) % POC Hct (42-52) % MCV 86.3 (80-100) fL MCH 28.0 (25-34) pg MCHC 32.5 (32-36) g/dL RDW Std Deviation 46.6 H (36.4-46.3) fL RDW Coeff of Serena 14.8 H (11.5-14.5) % Plt Count 505 H (130-400) K/uL MPV 9.6 (7.4-10.4) fL Immature Gran % (Auto) 0.7 % Neut % (Auto) 82.9 % Lymph % (Auto) 10.8 % [place] % (Auto) 4.3 % Eos % (Auto) 1.2 % Baso % (Auto) 0.1 % Neut # (Auto) 13.62 H (1.4-6.5) K/uL Lymph # (Auto) 1.78 (1.2-3.4) K/uL [place] # (Auto) 0.70 H (0.11-0.59) K/uL Eos # (Auto) 0.19 (0-0.5) K/uL Baso # (Auto) 0.02 (0-0.2) K/uL Immature Gran # (Auto) 0.11 H (0.00-0.02) K/uL POC Sodium (135-144) mmol/L Sodium 140 (136-145) mmol/L POC Potassium (3.3-5.0) mmol/L Potassium 4.1 (3.5-5.1) mmol/L POC Chloride (101-112) mmol/L Chloride 104 (98-107) mmol/L Carbon Dioxide 22 (21-32) mmol/L POC Total CO2 (24-31) mmol/L Anion Gap 14 H (3-11) POC Anion Gap (16-25) mmol/L POC BUN (7-18) mg/dl BUN 23 (6-23) mg/dl Creatinine 1.46 H (0.6-1.4) mg/dl POC Creatinine (0.6-1.3) mg/dl Est Cr Clr Drug Dosing Not Reportable Est GFR ( Amer) 62.7 ml/min Est GFR (Non-Af Amer) 54.1 ml/min BUN/Creatinine Ratio 15.8 (10-20) Glucose 121 H (70-99(Fasting)) mg/dl POC Glucose (other) (70-99) mg/dl Calcium 9.5 (8.5-10.1) mg/dl POC Ioniz Calcium [place]ryan (1.12-1.32) mmol/l Magnesium 2.3 (1.7-2.4) mg/dl Total Bilirubin 0.7 (0.2-1.0) mg/dl AST 19 (13-39) U/L ALT 17 (7-52) U/L Alkaline Phosphatase 167 H (34-104) U/L Total Creatine Kinase 64 (30-223) U/L Troponin I High Sens 10.9 (0-20) pg/ml Total Protein 7.9 (6.0-8.3) gm/dl Albumin 4.3 (3.4-5.0) gm/dl Globulin 3.6 (2.5-4.0) gm/dl Albumin/Globulin Ratio 1.2 (0.9-2) TSH 4.576 H (0.300-4.500) uIu/ml Free T4 0.83 (0.61-1.60) ng/dl SARS-CoV-2, RNA, NAAT (NEGATIVE) 08/24/21 08/24/21 Range/Units 12:24 12:29 WBC (4.8-10.8) K/uL RBC (4.7-6.1) M/uL Hgb (14.0-18.0) g/dL POC Hgb 17.0 (14.0-18.0) g/dl Hct (42-52) % POC Hct 50 (42-52) % MCV (80-100) fL MCH (25-34) pg MCHC (32-36) g/dL RDW Std Deviation (36.4-46.3) fL RDW Coeff of Serena (11.5-14.5) % Plt Count (130-400) K/uL MPV (7.4-10.4) fL Immature Gran % (Auto) % Neut % (Auto) % Lymph % (Auto) % [place] % (Auto) % Eos % (Auto) % Baso % (Auto) % Neut # (Auto) (1.4-6.5) K/uL Lymph # (Auto) (1.2-3.4) K/uL [place] # (Auto) (0.11-0.59) K/uL Eos # (Auto) (0-0.5) K/uL Baso # (Auto) (0-0.2) K/uL Immature Gran # (Auto) (0.00-0.02) K/uL POC Sodium 140 (135-144) mmol/L Sodium (136-145) mmol/L POC Potassium 4.2 (3.3-5.0) mmol/L Potassium (3.5-5.1) mmol/L POC Chloride 108 (101-112) mmol/L Chloride (98-107) mmol/L Carbon Dioxide (21-32) mmol/L POC Total CO2 21 L (24-31) mmol/L Anion Gap (3-11) POC Anion Gap 17.0 (16-25) mmol/L POC BUN 23 H (7-18) mg/dl BUN (6-23) mg/dl Creatinine (0.6-1.4) mg/dl POC Creatinine 1.4 H (0.6-1.3) mg/dl Est Cr Clr Drug Dosing Est GFR ( Amer) ml/min Est GFR (Non-Af Amer) ml/min BUN/Creatinine Ratio (10-20) Glucose (70-99(Fasting)) mg/dl POC Glucose (other) 128 H (70-99) mg/dl Calcium (8.5-10.1) mg/dl POC Ioniz Calcium [place] 1.07 L (1.12-1.32) mmol/l Magnesium (1.7-2.4) mg/dl Total Bilirubin (0.2-1.0) mg/dl AST (13-39) U/L ALT (7-52) U/L Alkaline Phosphatase (34-104) U/L Total Creatine Kinase (30-223) U/L Troponin I High Sens (0-20) pg/ml Total Protein (6.0-8.3) gm/dl Albumin (3.4-5.0) gm/dl Globulin (2.5-4.0) gm/dl Albumin/Globulin Ratio (0.9-2) TSH (0.300-4.500) uIu/ml Free T4 (0.61-1.60) ng/dl SARS-CoV-2, RNA, NAAT NEGATIVE (NEGATIVE) Administered Medications Sodium Chloride (Nss 1000ml) 1,000 mls @ 125 mls/hr IV .Q8H DREA Stop: 08/24/21 20:29 Last Admin: 08/24/21 13:06 Dose: 125 mls/hr Documented by: [id number] Discontinued Medications Sodium Chloride (Nss 1000ml) 1,000 mls @ 999 mls/hr IV .Q1H1M DREA Stop: 08/24/21 13:30 Last Infusion: 08/24/21 13:37 Dose: 0 mls/hr Documented by: [id number] Admin: 08/24/21 12:36 Dose: 999 mls/hr Documented by: [id number] Sodium Chloride (Nss 1000ml) 1,000 mls @ 999 mls/hr IV .Q1H1M ONE Stop: 08/24/21 16:00 Last Infusion: 08/24/21 17:59 Dose: 0 mls/hr Documented by: [id number] Admin: 08/24/21 16:10 Dose: 999 mls/hr Documented by: [id number] Ondansetron HCl (Ondansetron Inj 2 Mg/Ml 2 Ml Vial) 4 mg IV NOW STA Stop: 08/24/21 12:27 Last Admin: 08/24/21 12:36 Dose: 4 mg Documented by: [id number] Imaging Data Radiologist's Impression: Abdomen/Pelvis CT 08/24/21 12:26 CT abd pelvis wo con CLINICAL HISTORY: lower abd pain, diarrhea, hypotension,AMS COMPARISON STUDY: No previous studies for comparison. CT DOSE: 1064.25 mGycm TECHNIQUE: Standard CT of the Abdomen and Pelvis was performed without IV contrast. The patient did not receive oral contrast. A dose lowering technique was utilized adhering to the principles of ALARA. FINDINGS: Lung base: The lung bases are clear. Abdominal cavity: There is no evidence for abdominal mass, adenopathy or ascites. There is a small left inguinal hernia containing peritoneal fat. Liver: The liver is homogeneous in attenuation on these limited noncontrast images.. Spleen: The spleen is homogeneous in attenuation on these limited noncontrast images. Pancreas: The pancreas is homogeneous in attenuation on these limited noncontrast images. Gall Bladder: Surgical clips are present. Adrenal glands: The adrenal glands are normal in size and attenuation on these limited noncontrast images. Kidneys: The kidneys are homogeneous in attenuation on these limited noncontrast images. There is no evidence for gross renal mass, calculus or hydronephrosis bilaterally. Bowel: There is evidence for small hiatal hernia. The stomach is distended with liquid and food stuff. There are fluid-filled loops of small bowel seen throughout the abdomen and pelvis with scattered fluid levels present. There is no evidence for disproportionate dilatation or obstruction. The findings are most characteristic of ileus versus gastroenteritis. There are also fluid-filled loops of large bowel with scattered fluid levels seen. There are no inflammatory changes present. There is no evidence for free air. There is a normal appendix in the right lower quadrant. Bladder: There is no evidence for focal bladder wall thickening, calculus or diverticulum. : There is no evidence for pelvic mass or adenopathy. Vasculature: There is no evidence for focal aneurysmal dilatation of the abdominal aorta. Osseous structures: There is no acute osseous pathology. There is degenerative change involving the lower lumbar spine. IMPRESSION: 1. Fluid-filled loops of small bowel with scattered fluid levels present. No disproportionate dilatation or obstruction is seen. The findings are most characteristic of an ileus versus gastroenteritis. 2. There is also fluid and fluid level seen within the colon. 3. Additional nonacute findings are delineated above. ACT 112: Negative or not required by law. Electronically signed by: Homero White M.D. 08/24/2021 1:05 PM Chest X-Ray 08/24/21 12:26 XR chest 1V portable HISTORY: 55 years-old Male weakness acute weakness COMPARISON: Chest radiograph 07/27/2020 TECHNIQUE: Portable AP view of the chest FINDINGS: The cardiac silhouette is enlarged. Lungs are mildly hypoinflated. Coarsened interstitium is likely secondary to the patient's body habitus. There is no pneumothorax, pleural effusion, airspace consolidation or overt pulmonary edema. Degenerative changes of the shoulders and spine. Gaseous distention of the stomach. IMPRESSION: Cardiomegaly without acute process. ACT 112: Negative or not required by law. The above report was generated using voice recognition software. It may contain grammatical, syntax or spelling errors. Electronically signed by: Darius Nagy M.D. 08/24/2021 1:[address] 08/24/21 12:26 CT SCAN OF THE BRAIN WITHOUT IV CONTRAST CLINICAL HISTORY: Change in mental status. Unresponsive. COMPARISON STUDY: No priors. TECHNIQUE: Unenhanced axial CT scan of the brain is performed from the vertex to the skull base. A dose lowering technique was utilized adhering to the principles of ALARA. CT DOSE: 690.05 mGycm FINDINGS: Brain parenchyma: There is minimal microangiopathic change. There is no hemorrhage, mass effect, or evidence of acute territorial ischemia by CT criteria. Pimentel-white matter differentiation is preserved. No extra-axial fluid collection is seen. Ventricles, sulci, cisterns: Normal in configuration. Intracranial vasculature: The visualized intracranial vasculature at the skull base is normal in appearance. Calvarium: Unremarkable. Sinuses and mastoids: There is mild mucosal thickening within the ethmoid sinuses. The remaining visualized paranasal sinuses are clear. The mastoid air cells are well pneumatized. Orbits: The bony orbits are grossly intact. IMPRESSION: There is no hemorrhage, mass effect, or evidence of acute territorial ischemia by CT criteria. ACT 112: Negative or not required by law. Electronically signed by: Dc Morgan M.D. 08/24/2021 12:59 PM Discharge Plan Visit Data Chief Complaint: Altered Mental Status ED Provider: Avel Ann Discharge Problem: AMS (altered mental status), Acute hypotension, Abdominal pain, lower, Ileus, Nausea & vomiting Patient Disposition: Admitted As Inpatient Discharge Instructions Interventions: ED Discharge Assessment Last Done: 08/24/21 17:36
[2021-08-24 13:38] LABS: Troponin I High Sensitivity 10.9 pg/ml (0-20)
[2021-08-24 13:48] LABS: Thyroid Stimulating Hormone 4.576 uIu/ml (0.300-4.500)
[2021-08-24 13:56] LABS: Alanine Aminotransferase 17 U/L (7-52); Albumin Globulin Ratio 1.2 (0.9-2); Albumin Level 4.3 gm/dl (3.4-5.0); Alkaline Phosphatase 167 U/L (34-104); Anion Gap 14 (3-11); Aspartate Aminotransferase 19 U/L (13-39); BUN Creatinine Ratio 15.8 (10-20); Bilirubin,Total 0.7 mg/dl (0.2-1.0); Blood Urea Nitrogen 23 mg/dl (6-23); Calcium 9.5 mg/dl (8.5-10.1); Carbon Dioxide 22 mmol/L (21-32); Chloride 104 mmol/L (98-107); Creatine Kinase 64 U/L (30-223); Est GFR (African American) 62.7 ml/min; Est GFR (Non-African American) 54.1 ml/min; Globulin 3.6 gm/dl (2.5-4.0); Glucose 121 mg/dl (70-99(Fasting)); Magnesium 2.3 mg/dl (1.7-2.4); Potassium 4.1 mmol/L (3.5-5.1); Sodium 140 mmol/L (136-145); Total Protein 7.9 gm/dl (6.0-8.3)
[2021-08-24 14:20] LABS: T4 Free Thyroxine 0.83 ng/dl (0.61-1.60)
[2021-08-24] MEDS ORDERED: SODIUM CHLORIDE 0.9% 1000ML 1,000 ML IV ONE (15:00)
--- NOTE | 2021-08-24 15:33 | History & Physical Report ---
Date of Service August 24, 2021 Assessment & Plan (1) AMS (altered mental status): Plan: lightheadedness followed by nausea, vomiting in a 55 yo diabetic. May be due to metformin (GI symptoms) vs viral illness. will hold checking stool as patient's diarrhea appears to have subsided. WBC is eleavted, but this may be reactive. procal is negative. will recheck WBC in am. symptoms may have been longer than what is stated in HPI as patient has signs of AMANDA. If diarrhea continues will consider ordering PCR of his stool. (2) Acute hypotension: Plan: REQUIRED 2 liter bolus. may be due to fluid loss from loose stools and diuretic. will monitor (3) Nausea & vomiting: Plan: appears to have resolved. patient is currently asking for food. (4) Morbid obesity: Plan: recommend lifestyle changes. (5) Hypertension: Plan: holding BP meds (6) Diabetes: Plan: Diabetes Mellitus type II will check A1C. On SSI. (7) Atrial fibrillation: Plan: Patient was on warfarin. Not noted on home meds list. Patient states he is not taking it. will check INR. History of Present Illness Chief Complaint: lightheadednes Primary Care Provider: OLIVIA Choi 55 yo male who is diabetic comes in from [facility]. He reports that at 9 am, he had an episode of lightheadedness. This was accompanied by nausea, vomiting food particles and diarrhea. Patient reports he has about 3-4 episodes of loose stools and 3-4 episodes of vomiting. Prior to this patient feels well. Patient said he had a small BM while in the ER. In the ER, Bp was found to be low and he required 2 liter bolus. Allergies Allergy/AdvReac Type Severity Reaction Status Date / Time No Known Allergies Allergy Unverified 08/24/21 14:06 Home Medications Medication Instructions Recorded Confirmed Type aspirin 81 mg tablet,delayed 81 mg PO DAILY 06/30/20 08/24/21 History release albuterol sulfate 90 mcg/actuation 2 puff INHALATION QID PRN 08/24/21 08/24/21 History aerosol inhaler (Proventil HFA) amoxicillin 875 mg-potassium 1 tab PO BID 08/24/21 08/24/21 History clavulanate 125 mg tablet lisinopril 20 1 tab PO DAILY 06/02/22 06/02/22 History mg-hydrochlorothiazide 12.5 mg tablet metformin 1,000 mg tablet 1,000 mg PO BID 08/24/21 08/24/21 History Past Med/Surg History Medical History Dyslipidemia Hypertension Surgical History No significant past surgical history Social History Smoking Status: Never smoker Do You Dip or Chew Tobacco: No; Hx Alcohol Use: No Hx Substance Use: No Preferred Language: Venezuelan Communication Ability: Effective Recovery Rn Required: No Beliefs That Will Affect Care: None Current Living Situation: Other Current Living Situation Comment: [facility] Other Information That Helps Us Care for You: No Feels Safe at Home: Yes Safety Concerns: Feels Safe At This Time Assistive Devices: Denture - Upper and Denture - Lower Review of Systems Constitutional: + weakness; no fever and no body aches Eyes: no blind spots and no discharge Ear, Nose, Mouth, Throat: no ear pain Respiratory: no cough Cardiovascular: no chest pain Gastrointestinal: no abdominal pain Genitourinary: no dysuria Musculoskeletal: no back pain Integumentary: no acne Neurologic: no gait abnormality Psychiatric: no behavioral changes Endocrine: + fatigue Hematologic / Lymphatic: no easy bleeding Allergy / Immunological: no GI upset with certain foods Physical Exam Constitutional: WD/WN, vitals as above Eyes: PERRL, conjunctivae normal, anicteric sclerae ENMT: external ear and nose normal, oropharynx normal Neck: trachea midline, no thyromegaly Respiratory: normal respiratory effort, lungs clear to auscultation Cardiovascular: RRR, no murmur, no edema Gastrointestinal (Abdomen): normal bowel sounds, soft, nontender, no hepatosplenomegaly Musculoskeletal: no cyanosis or clubbing, extremities motor strength 5/5 Skin: no rashes, warm and dry Neurologic: PERRL, EOMI, accommodation nl, no face palsy, no dysarthria Psychiatric: A+Ox3, euthymic affect Genitourinary: no testicular masses, no penis abnormality Lymphatic: no cervical or axillary lymphadenopathy Results & Data Results & Data ([facility]) Vital Signs (Past 12 Hours) Vital Signs Temp Pulse Pulse Resp BP BP Pulse Ox 08/24/21 15:00 82 13 94 08/24/21 14:45 82 16 94 08/24/21 14:30 79 12 99 08/24/21 14:15 80 13 96 08/24/21 14:11 76 18 110/59 L 95 08/24/21 14:00 81 13 100 08/24/21 13:45 79 12 98 08/24/21 13:30 75 14 96 08/24/21 13:28 99/60 L 08/24/21 13:26 78 14 99/60 L 97 08/24/21 13:00 76 12 98 08/24/21 12:58 83 19 98/61 L 97 08/24/21 12:57 79 16 98/61 L 97 08/24/21 12:56 83 16 08/24/21 12:37 81 16 99 08/24/21 12:30 80 16 98 08/24/21 12:28 84 16 98 08/24/21 12:26 36.5 C 79 13 108/81 98 PG Care Time/CCT Total # of Minutes Spent Total Time Spent with Patient: Total time spent is greater than 50% in coordination of care (as documented) at patient's floor/unit and/or counseling patient: Coding Level of Care Code 31808 Initial Inpt Care Lvl 3 Diagnoses AMS (altered mental status) R41.82 Acute hypotension I95.9 Nausea & vomiting R11.2 Morbid obesity E66.01 Hypertension I10 Diabetes E11.9 Atrial fibrillation I48.91
--- NOTE | 2021-08-24 16:24 | Electrocardiogram Report ---
Test Reason : Blood Pressure : / mmHG Vent. Rate : 087 BPM Atrial Rate : 087 BPM P-R Int : 162 ms QRS Dur : 084 ms QT Int : 364 ms P-R-T Axes : 048 057 043 degrees QTc Int : 438 ms Normal sinus rhythm Incomplete right bundle branch block Poor R wave progression, consider anterior NV vs. lead placement vs. LVH Abnormal ECG When compared with ECG of 27-JUL-2020 18:53, T wave inversion no longer evident in Anterior leads Confirmed by Leo Trotter ([id number]) on 08/24/2021 4:23:50 PM Referred By: Steph BAKER Confirmed By:Leo Trotter
[2021-08-24] MEDS ORDERED: GLUCOSE 10 TAB/TUBE PO PRN (17:13)
[2021-08-24] MEDS ORDERED: GLUCOSE 40% GEL 15 GM TUBE PO PRN (17:13)
[2021-08-24] MEDS ORDERED: DEXTROSE 50% 50 ML SYRINGE IV PRN (17:13)
[2021-08-24] MEDS ORDERED: CARBOHYDRATES FOR HYPOGLYCEMIA PO PRN (17:13)
[2021-08-24] MEDS ORDERED: GLUCAGON FOR INJ 1 MG VIAL SQ PRN (17:13)
[2021-08-24] MEDS: INSULIN ASPART PER UNIT SC SCH (20:45)
[2021-08-24] MEDS ORDERED: ENOXAPARIN INJ 40 MG/0.4 ML SYR SQ ONE (22:03)
[2021-08-24 22:53] LABS: Prothrombin Time 10.9 Seconds (9.0-12.0)
[2021-08-25 07:32] LABS: Estimated Average Glucose 154 mg/dl
[2021-08-25 08:14] LABS: Hematocrit (blood only) 41.5 % (42-52); Hemoglobin 13.7 g/dL (14.0-18.0); Mean Corpuscular Hemoglobin 28.8 pg (25-34); Mean Corpuscular Volume 87.4 fL (80-100); Mean Platelet Volume 9.5 fL (7.4-10.4); Platelet Count 370 K/uL (130-400); RDW Coefficient of Variation 14.9 % (11.5-14.5); Red Blood Count 4.75 M/uL (4.7-6.1); White Blood Count 7.98 K/uL (4.8-10.8)
[2021-08-25 08:15] LABS: BUN Creatinine Ratio 25.4 (10-20); Calcium 7.9 mg/dl (8.5-10.1); Creatinine Clr Calc Pharmacy 70.6 ml/min; Est GFR (African American) 67.2 ml/min; Potassium 3.6 mmol/L (3.5-5.1)
[2021-08-25 08:17] LABS: Prothrombin Time 10.8 Seconds (9.0-12.0)
--- NOTE | 2021-08-25 09:01 | Hospitalist Progress Note ---
Date of Service August 25, 2021 Assessment & Plan (1) AMS (altered mental status): Plan: lightheadedness followed by nausea, vomiting in a 55 yo diabetic. May be due to metformin (GI symptoms) vs viral illness. encephalopahty resolved procal is negative. diarrhea continues will order PCR of his stool. (2) Acute hypotension: Plan: RESOLVED REQUIRED 2 liter bolus. maintainance fluid while diarrhea persists (3) Nausea & vomiting: Plan: appears to have resolved. tolerating diet (4) Morbid obesity: Plan: recommend lifestyle changes. (5) Hypertension: Plan: holding BP meds (6) Diabetes: Plan: Diabetes Mellitus type II will check A1C. On SSI. (7) Atrial fibrillation: Plan: h/o now in NSR, previously on warfarin (8) Renal mass: Plan: Renal CT 2.4 cm enhancing lesion within the midpole of the right kidney highly suggestive of renal cell carcinoma. Urology consultation, urine cytology Admission and Anticipated Discharge Date Admission Date: August 24, 2021 Subjective pt states n/v has stopped but now diffuse watery diarrhea told of suspicious renal mass, additional imaging confirms, will have urology consult Review of Systems Review of Systems: Mild distress and fatigue no headache, no visual changes no speech or swallowing issues no chest pain, pressure or palpitations no shortness of breath, cough or wheezes no abdominal pain, nausea or vomiting, persistent diarrhea no dysuria, hematuria or frequency no focal joint pain or swelling no back pain, CVA tenderness or radicular pain no bruising, bleeding or rashes no focal signs of weakness or numbness or altered sensation no complaints of anxiety or depression.. Physical Exam Physical Exam: The patient appeared well nourished and normally developed. Vital signs as documented. Head exam is normocephalic atraumatic Neck is without JVD, thyromegaly, or carotid bruits. Lungs are clear to auscultation, no focal loss of breath sounds Cardiac exam, Rhythm is regular.. No murmurs, rubs or gallops. Abdominal exam reveals normal bowel sounds, soft non tender, no masses Extremities are nonedematous and both pedal pulses are present Neurologic exam is alert and oriented, no focal loss of strength or sensation Skin is without bruises or rashes Psychologically is without concerns for anxiety or depression.. Results & Data Results & Data ([facility]) Vital Signs (Past 12 Hours) Vital Signs Temp Pulse Resp BP Pulse Ox 08/25/21 07:03 97.7 F 70 16 96/60 L 98 PG Care Time/CCT Total # of Minutes Spent Total Time Spent with Patient: Total time spent is greater than 50% in coordination of care (as documented) at patient's floor/unit and/or counseling patient: Coding Level of Care Code 63615 Subseq Hosp Care Lvl 2 Diagnoses AMS (altered mental status) R41.82 Acute hypotension I95.9 Nausea & vomiting R11.2 Morbid obesity E66.01 Hypertension I10 Diabetes E11.9 Atrial fibrillation I48.91 Renal mass N28.89
[2021-08-25] MEDS: INSULIN ASPART PER UNIT SC SCH ×4 (09:05→21:46)
[2021-08-25] MEDS: ASPIRIN 81 MG ECTAB PO SCH (09:06)
[2021-08-25] MEDS ORDERED: OPTIRAY 320 100ml IV ONE (10:58)
--- NOTE | 2021-08-25 11:46 | CT Scan Report ---
CT OF THE ABDOMEN WITH AND WITHOUT CONTRAST RENAL PROTOCOL CLINICAL HISTORY: renal mass right kidney COMPARISON STUDY: CT of the abdomen and pelvis August 24, 2021. TECHNIQUE: Unenhanced, nephrographic and 5 minute delayed phase imaging of the abdomen was performed. Intravenous injection of 95 cc of Optiray 320 IV was uneventful. Automated exposure control was util ized for the study. A dose lowering technique was utilized adhering to the principles of ALARA. FINDINGS: Lung bases are unremarkable. There is no hydronephrosis. No renal calculi are present. Note is made of a 2.4 cm enhancing mass within the anterior cortex of the midpole of the right kidney. At tenuation of this lesion on the unenhanced portion of this study is 36 Hounsfield units. Attenuation on the nephrographic phase is 96 Hounsfield units. No additional enhancing renal lesions are present. A 1.5 cm lesion within the upper pole of the left kidney represents a cyst. Nephrograms are symmetri c. There is no abdominal lymphadenopathy. There is no biliary ductal dilatation status post cholecyst ectomy. No hepatic lesions are present. Spleen, adrenal glands and pancreas are unremarkable. Caliber and wall thickness of visualized small and large bowel are normal. No suspicious lesions within the visualized skeletal structures. Vasculature of the abdomen is patent. IMPRESSION: 2.4 cm enhancing lesion within the midpole of the right kidney highly suggestive of rommel l cell carcinoma. Urology consultation is recommended. ACT 112: Positive. There are findings on this exam that require communication between the performing entity and the patient following Patient Test Result Information Act ([place] Act 112) guidelines. Electronically signed by: Saul Nolasco M.D. 08/25/2021 11:44 AM
[2021-08-25] MEDS ORDERED: ENOXAPARIN INJ 40 MG/0.4 ML SYR SQ SCH (21:00)
--- NOTE | 2021-08-25 21:44 | Urology Consultation ---
Date of Consultation August 25, 2021 Assessment & Plan (1) Renal mass: The patient has had a urine for cytology sent we will follow for the results of this Dr. Eubanks will review patient's CT scan to determine next best course of action of patient's renal mass which could include observation, biopsy, or potential surgery. History of Present Illness Reason for Consultation: Right renal mass Attending Physician: Joel Salazar MD History of Present Illness This is a 55-year-old male who is a known diabetic who presented to [facility] from a correctional facility secondary to an episode of lightheadedness with associated nausea and vomiting. Patient was admitted to the hospital with an underlying working diagnosis of altered mental status that was felt to be secondary to his lightheadedness and nausea and vomiting. It was felt that his diabetic medications in the form of metformin versus a viral illness were contributing to the symptoms. The patient did have labs and imagingSince being hospitalized which I independently reviewed. Most recent labs from today include a CBC her white blood cell count and platelet count are normal. His hemoglobin and hematocrit are 13.7 and 41.5. Chemistry profile showed sodium and potassium along with his creatinine were normal. BUN had a slight elevation at 35. He was checked for COVID which was noted to be negative. Imaging has included a CT scan of the abdomen and pelvis on 08/24/2021 which showed no evidence of renal mass. A chest x-ray showed no evidence of pneumonia. A CT scan of the head showed no acute intracranial process. He did have a dedicated renal CT on 08/25/2021 that showed a 2.4 cm enhancing lesion in the midpole of the right kidney which was concerning for renal cell carcinoma. Concerning the patient's finding of renal mass I did question him about this and this was unknown to him. He denies any back or flank pain. He denies any weight loss. He denies any fevers, shakes, chills. He denies any dysuria, urinary frequency, or urinary hesitancy. He denies any hematuria. 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 To the best of his knowledge he has not been exposed any chemicals fumes or pesticides with the exception of carbon monoxide. He does not have a known history of renal cell carcinoma At the time of my interview he was resting comfortably in bed in no distress. Allergies Allergy/AdvReac Type Severity Reaction Status Date / Time No Known Allergies Allergy Unverified 08/24/21 14:06 Home Medications Medication Instructions Recorded Confirmed Type aspirin 81 mg tablet,delayed 81 mg PO DAILY 06/30/20 08/24/21 History release albuterol sulfate 90 mcg/actuation 2 puff INHALATION QID PRN 08/24/21 08/24/21 History aerosol inhaler (Proventil HFA) amoxicillin 875 mg-potassium 1 tab PO BID 08/24/21 08/24/21 History clavulanate 125 mg tablet lisinopril 20 1 tab PO DAILY 08/24/21 08/24/21 History mg-hydrochlorothiazide 12.5 mg tablet metformin 1,000 mg tablet 1,000 mg PO BID 08/24/21 08/24/21 History Patient History Medical History Dyslipidemia Hypertension Surgical History No significant past surgical history Social History Smoking Status: Never smoker Do You Dip or Chew Tobacco: No; Hx Alcohol Use: No Hx Substance Use: No Preferred Language: Hungarian Communication Ability: Effective Joggle Press Operator Required: No Beliefs That Will Affect Care: None Current Living Situation: Other Current Living Situation Comment: [facility] Other Information That Helps Us Care for You: No Feels Safe at Home: Yes Safety Concerns: Feels Safe At This Time Assistive Devices: None Review of Systems Constitutional: no fever and no chills Eyes: no diplopia Ear, Nose, Mouth, Throat: no ear pain Respiratory: no cough and no dyspnea Cardiovascular: no chest pain Gastrointestinal: + nausea and + vomiting; no abdominal pain Genitourinary: + as per Subjective / HPI; no dysuria, no urinary hesitancy, no hematuria or no flank pain Musculoskeletal: no back pain Integumentary: no rash Neurologic: no localized weakness Physical Exam Constitutional: WD/WN, vitals as above Eyes: no conjunctival abnormality ENMT: Ears: no hearing impairment Mouth: no oropharynx abnormality Neck: trachea midline Respiratory: normal respiratory effort; no respiratory distress Cardiovascular: Rate/Rhythm: regular rate and regular rhythm Gastrointestinal (Abdomen): Soft, nontender, nondistended Musculoskeletal: No calf tenderness Skin: no rashes Neurologic: moves all extremities Psychiatric: A+Ox3, euthymic affect Genitourinary: no CVA tenderness No palpable masses in the right flank or abdomen Results & Data ([facility]) Vital Signs (Past 12 Hours) Vital Signs Temp Pulse Resp BP Pulse Ox 08/25/21 15:03 36.7 C 82 16 128/77 98 PG Care Time/CCT Total # of Minutes Spent Total Time Spent with Patient: Total time spent is greater than 50% in coordination of care (as documented) at patient's floor/unit and/or counseling patient: Coding Level of Care Code 41338 Inpt Consult Level 5 Diagnoses Renal mass N28.89
[2021-08-26 02:34] LABS: Adenovirus F 40/41 PCR Not Detected (NotDetected); Astrovirus PCR Not Detected (NotDetected); Campylobacter PCR Not Detected (NotDetected); Clostridium diff Toxin A/B PCR Not Detected (NotDetected); Cryptosporidium PCR Not Detected (NotDetected); Cyclospora cayetanensis PCR Not Detected (NotDetected); Entamoeba histolytica PCR Not Detected (NotDetected); Enteroaggregative E.coli(EAEC) Not Detected (NotDetected); Enteropathogenic E.coli (EPEC) Not Detected (NotDetected); Enterotoxigenic E.coli (ETEC) Not Detected (NotDetected); Giardia lamblia PCR Not Detected (NotDetected); Norovirus GI/GII PCR Not Detected (NotDetected); Plesiomonas shigelloides PCR Not Detected (NotDetected); Rotavirus A PCR Not Detected (NotDetected); Salmonella PCR Not Detected (NotDetected); Sapovirus PCR Not Detected (NotDetected); Shiga-like Toxin E.coli (STEC) Not Detected (NotDetected); Shigella/Enteroinvasive E.coli Not Detected (NotDetected); Vibrio cholerae PCR Not Detected (NotDetected); Vibrio species PCR Not Detected (NotDetected); Yersinia enterocolitica PCR Not Detected (NotDetected)
[2021-08-26] MEDS ORDERED: LOPERAMIDE HCL 2 MG CAP PO PRN (08:23)
[2021-08-26] MEDS: ASPIRIN 81 MG ECTAB PO SCH (08:52)
[2021-08-26] MEDS: INSULIN ASPART PER UNIT SC SCH (08:58)
--- NOTE | 2021-08-26 10:35 | Urology Progress Note ---
Date of Service August 26, 2021 Assessment & Plan (1) Renal mass: Plan: Right renal mass concerning for renal cell carcinoma I explained the diagnosis and the risk that this does represent a malignancy versus a benign tumor I have discussed management options including continued observation versus partial nephrectomy I have discussed that a will need outpatient follow-up to determine a long-term plan He is very understanding of the situation He does not have any defined risk factors and I anticipate this is likely a sporadic development I have stressed that his long-term prognosis from the renal mass is extremely good Reviewing the CT, his mass is anterior and exophytic enough that it should be quite amenable to partial nephrectomy if it comes to that Admission and Anticipated Discharge Date Admission Date: August 24, 2021 Subjective 55-year-old prisoner admitted with a variety of symptoms which subsequently led to a CT of the abdomen pelvis and incidental discovery of a right renal mass This mass is just under 3 cm in size but does have characteristics raising concerns for renal cell carcinoma He has no symptoms from the mass I have discussed the diagnosis with him and explained that there is a relatively high likelihood that this represents a malignancy(75% / 25%) I have discussed that he may require treatment in the future although it is not immediately necessary given its small size and the propensity of small renal masses to be very well behaved and unlikely to metastasize He does understand that he will require outpatient follow-up for more definitive treatment and evaluation Physical Exam Constitutional: well developed and well nourished Respiratory: no respiratory distress Cardiovascular: Extremities: no pedal edema Gastrointestinal (Abdomen): Inspection/Auscultation: abdomen normal to inspection Results & Data ([facility]) Vital Signs (Past 12 Hours) Vital Signs Temp Pulse Resp BP Pulse Ox 08/26/21 07:46 36.7 C 62 20 119/70 97 PG Care Time/CCT Total # of Minutes Spent Total Time Spent with Patient: Total time spent is greater than 50% in coordination of care (as documented) at patient's floor/unit and/or counseling patient: Coding Level of Care Code 74825 Subseq Hosp Care Lvl 2 Diagnoses Renal mass N28.89
--- NOTE | 2021-08-26 13:31 | Discharge Summary ---
Date of Service August 26, 2021 Admission HPI Per Admitting Provider 55 yo male who is diabetic comes in from [employer] [facility]. He reports that at 9 am, he had an episode of lightheadedness. This was accompanied by nausea, vomiting food particles and diarrhea. Patient reports he has about 3-4 episodes of loose stools and 3-4 episodes of vomiting. Prior to this patient feels well. Patient said he had a small BM while in the ER. In the ER, Bp was found to be low and he required 2 liter bolus. Principal Diagnosis nausea vomiting diarrhea right renal mass will need urology follow up Discharge Exam The patient appeared stable Vital signs as documented. Lungs are clear to auscultation and appear unlabored Cardiac exam, Rhythm is regular.. No murmurs, rubs or gallops. Abdominal exam reveals normal bowel sounds, soft non tender, no masses Extremities are nonedematous and both pedal pulses are normal. Neurologic exam is alert and oriented, no focal loss of strength or sensation Skin is without bruises or rashes Psychologically is without concerns for anxiety or depression. Discharge Data Allergies Allergy/AdvReac Type Severity Reaction Status Date / Time No Known Allergies Allergy Unverified 08/24/21 14:06 Consultations 08/24/21 16:45 ED Decision to Admit Stat 08/25/21 15:08 Consult Urology Routine Ordered Studies 08/24/21 12:26 CT abd pelvis wo con Stat CT head/brain wo con Stat 08/25/21 09:01 CT renal wo/w con Routine Hospital Course (1) AMS (altered mental status): lightheadedness followed by nausea, vomiting in a 55 yo diabetic. May be due to metformin (GI symptoms) vs viral illness. encephalopahty resolved procal is negative. PCR of his stool negative for infectious and symptoms resolves. (2) Acute hypotension: RESOLVED (3) Nausea & vomiting: appears to have resolved. tolerating diet (4) Morbid obesity: recommend lifestyle changes. (5) Hypertension: holding BP meds (6) Diabetes: Diabetes Mellitus type II resume oral metformin, if diarrhea recurres consider alternative (7) Atrial fibrillation: h/o now in NSR, previously on warfarin (8) Renal mass: Renal CT 2.4 cm enhancing lesion within the midpole of the right kidney highly suggestive of renal cell carcinoma. Urology consultation,recommends outpt follow up urine cytology pending at discharge Total Time Total Time Spent Total Time Spent (In Minutes): It required greater than 30 minutes to prepare this patient for discharge Discharge Plan Discharge Items Patient Disposition: Correction[facility] Facility Reason For Visit: VOMITING Discharge Diagnosis: gastroenteritis resolved right renal mass, will need urology follow up Activity: Resume your previous activity Non-emergency contact: Primary Care Provider and Urologist Call non-emergency contact if: your symptoms worsen and you have a fever Follow-up/Referrals: Steph BAKER [Primary Care Provider] - Diet: Regular Addtl Attending Provider Instructions: you were tested for infectious problems that can be treated and those tests are negative, you likely had a short term viral diarrhea that is resolved the diarrhea alternatively could have been from the metformin, while here on a low carb diet his glucoses were not significantly elevated, if you restart metformin and diarrhea recurred consider alternative agent during your stay we identified a 2.4 cm right renal mass that will need follow up with out pt urology Pending Studies at Discharge: Yes Studies:: urine cytology Stand-Alone Forms: My [facility] Skilled Items Patient informed of condition?: Yes Discharge Level of Care: Other Communicable Disease: No Discharge Prognosis: Stable Lines: None Urinary Catheter: No Medications and DC Order Prescriptions: Continued aspirin 81 mg Tablet,Delayed Release (Dr/Ec) 81 mg PO DAILY RF: 0 albuterol sulfate [Proventil HFA] 90 mcg/actuation Hfa Aerosol Inhaler 2 puff INHALATION QID PRN (Reason: Shortness Of Breath) RF: 0 Discontinued lisinopril-hydrochlorothiazide [Prinzide] 20-12.5 mg Tablet 1 tab PO DAILY RF: 0 metformin 1,000 mg Tablet 1,000 mg PO BID RF: 0 amoxicillin-pot clavulanate 875-125 mg Tablet 1 tab PO BID RF: 0 Discharge Orders: Discharge Order (Routine); Ordered 08/26/21 Ordered By: Joel Brian/Other Patient Handouts: Managing Type 2 Diabetes Admission Data Admit Date/Time: 08/24/21 15:33 Attending Provider: Joel Salazar Admit Provider: Adalid Carter Primary Care Provider: Steph BAKER Other Providers: Adalid Carter ; Abisai Eubanks Other Interventions: Discharge Summary Assessment (RN) Last Done: 08/26/21 11:56 Coding Level of Care Code D/C DAY MANAGEMENT >30 MINS Diagnoses AMS (altered mental status) R41.82 Acute hypotension I95.9 Nausea & vomiting R11.2 Morbid obesity E66.01 Hypertension I10 Diabetes E11.9 Atrial fibrillation I48.91 Renal mass N28.89
== END 2021-08-26 12:51 | DRG 392 ==
LOC: ED 12:16 → SUATTDRO 15:33 → INTOOBSV 15:33 → 3W 15:33

== ENCOUNTER 2022-02-27 09:07 | Observation (INO) ==
--- NOTE | 2022-01-05 14:53 | Anesthesiology Consultation ---
Date of Service January 05, 2022 Assessment & Plan (1) Encounter for pre-operative examination: - Case discussed in detail including cardiac history with abnormal stress test and EKG. He advised given indication for nephrectomy will notify surgeon's office of history and consideration for cardiology to weigh in unless surgeon feels procedure must move ahead as scheduled. Awaiting surgeon's office response. - awaiting testing from [facility]. - check BSG am DOS. - COVID screening: Per assessment nurse on 01/03/2022: Inmate, will need COVID test am DOS. Jorge ordered. Chart Review Chart Review: Pending: Refer to Additional Notes / Consult section and Patient NOT seen in Pre Admission Testing History Surgery Operation Date: 01/09/22 07:30 Proposed Procedures p Robotic Laparoscopic Assisted Nephrectomy Right - Abisai Eubanks MD Height/Weight Height: 5 ft 5 in Weight: 117.48 kg Allergies Allergy/AdvReac Type Severity Reaction Status Date / Time No Known Allergies Allergy Unverified 01/03/22 13:28 Medications Home Medications Medication Instructions Recorded Confirmed Last Taken aspirin 81 mg tablet,delayed 81 mg PO QAM 06/30/20 01/03/22 07/27/20 release albuterol sulfate 90 mcg/actuation 2 puff inhalation QID PRN 08/24/21 01/03/22 Unknown aerosol inhaler (Proventil HFA) Shortness Of Breath atorvastatin 20 mg tablet 20 mg PO HS 10/27/21 01/03/22 Unknown lisinopril 20 1 tab PO QAM 01/03/22 01/03/22 Unknown mg-hydrochlorothiazide 12.5 mg tablet metformin 1,000 mg tablet 1,000 mg PO BID 01/03/22 01/03/22 Unknown Past Medical History Medical History (Updated 01/05/22 @ 14:43 by Milka Epperson PA-C) Atrial fibrillation Diabetes NIDDM Dyslipidemia Hypertension Right renal mass Past Surgical History Surgical History (Updated 01/05/22 @ 14:48 by Milka Epperson PA-C) History of cholecystectomy 07/04/20: Grade 1 view, Lopez 2, ETT 7.5. Social History Smoking Status: Unknown if ever smoked Hx Alcohol Use: No Hx Substance Use: No substance use type: does not use Testing Electrocardiogram Date: 08/24/21 NSR, rate 87 bpm Incomplete RBBB Poor R wave progression, consider anterior MO vs lead placement vs LVH Chest X-Ray Date: 08/24/21 *1 view* Cardiomegaly without acute process. Stress Test Date: 11/02/20 Pharmacologic MPHR 61% 1. Small, mild, partially reversible perfusion defect involving apical anterior/septal segments potentially representing distal single-vessel (low risk) ischemia versus artifact. 2. Normal LV size and function. LVEF 72% with no regional wall motion abnormalities. 3. Non-diagnostic stress ECG due to inability to reach target HR with Lexiscan. Other Testing Renal CT 08/25/21 2.4 cm enhancing lesion within the midpole of the right kidney highly suggestive of renal cell carcinoma. Urology consultation is recommended. Head CT 08/24/21 There is no hemorrhage, mass effect, or evidence of acute territorial ischemia by CT criteria. Abdomen pelvis CT 08/24/21 In additional to the above findings, there is the suggestion of a subtle 2.5 cm mass in the interpolar right kidney seen on axial image #176. Correlation with a contrast enhanced renal protocol CT or MRI is recommended for further evaluation. Lung base: The lung bases are clear. Abdominal cavity: There is no evidence for abdominal mass, adenopathy or ascites. There is a small left inguinal hernia containing peritoneal fat. Liver: The liver is homogeneous in attenuation on these limited noncontrast images.. Spleen: The spleen is homogeneous in attenuation on these limited noncontrast images. Pancreas: The pancreas is homogeneous in attenuation on these limited noncontrast images. Gall Bladder: Surgical clips are present. Adrenal glands: The adrenal glands are normal in size and attenuation on these limited noncontrast images. Kidneys: The kidneys are homogeneous in attenuation on these limited noncontrast images. There is no evidence for gross renal mass, calculus or hydronephrosis bilaterally. Bowel: There is evidence for small hiatal hernia. The stomach is distended with liquid and food stuff. There are fluid-filled loops of small bowel seen throughout the abdomen and pelvis with scattered fluid levels present. There is no evidence for disproportionate dilatation or obstruction. The findings are most characteristic of ileus versus gastroenteritis. There are also fluid-filled loops of large bowel with scattered fluid levels seen. There are no inflammatory changes present. There is no evidence for free air. There is a normal appendix in the right lower quadrant. Bladder: There is no evidence for focal bladder wall thickening, calculus or diverticulum. : There is no evidence for pelvic mass or adenopathy. Vasculature: There is no evidence for focal aneurysmal dilatation of the abdominal aorta. Osseous structures: There is no acute osseous pathology. There is degenerative change involving the lower lumbar spine. IMPRESSION: 1. Fluid-filled loops of small bowel with scattered fluid levels present. No disproportionate dilatation or obstruction is seen. The findings are most characteristic of an ileus versus gastroenteritis. 2. There is also fluid and fluid level seen within the colon. 3. Additional nonacute findings are delineated above.
[~2022-02-27 09:07] MED LIST: LR 15ML/HR IV SCH; MIDAZOLAM HCL 1 MG/ML 2ML VIAL ONE; ceFAZolin 2000MG 2,000 MG/15 ML SYR IV SCH; fentaNYL citrate 100 MCG/2 ML VIAL ONE
[2022-02-27] MEDS ORDERED: fentaNYL citrate 100 MCG/2 ML VIAL IV PRN (09:56)
[2022-02-27] MEDS ORDERED: ePHEDrine sulfate 50 MG/ML AMP IV PRN (09:56)
[2022-02-27] MEDS ORDERED: ONDANSETRON INJ 2 MG/ML 2 ML VIAL IV PRN ×2 (09:56→15:36)
[2022-02-27] MEDS ORDERED: ATROPINE SULFATE 0.1 MG/ML 10ML SYR IV PRN (09:56)
[2022-02-27 10:02] LABS: Basophils # (auto) 0.04 K/uL (0-0.2); Basophils % (auto) 0.4 %; Eosinophils # (auto) 0.46 K/uL (0-0.50); Hematocrit (blood only) 43.8 % (40.1-51.0); Hemoglobin 14.1 g/dl (14.0-18.0); Immature Granulocytes # (auto) 0.04 K/uL (0.00-0.02); Immature Granulocytes % (auto) 0.4 %; Lymphocytes # (auto) 2.31 K/uL (1.2-3.4); Mean Corpuscular Hgb Conc 32.2 g/dL (32.0-36.0); Mean Corpuscular Volume 87.1 fL (80.0-100.0); Mean Platelet Volume 9.3 fL (9.4-12.4); Monocytes % (auto) 6.5 %; Neutrophils # (auto) 5.79 K/uL (1.4-6.5); Neutrophils % (auto) 62.7 %; Platelet Count 401 K/uL (130-400); RDW Coefficient of Variation 14.5 % (11.5-14.5); Red Blood Count 5.03 M/uL (4.63-6.08); White Blood Count 9.24 K/ul (4.8-10.8)
--- NOTE | 2022-02-27 10:21 | Anesthesiology Consultation ---
Date of Service February 27, 2022 Assessment & Plan Chart Review Chart Review: Acceptable Risk for Surgery Consults Requested none ASA ASA3 Proposed Anesthesia Anesthesia Type: General Risk / Benefits Reviewed With: PT / POA / Parent / Guardian, Accepts Plan and Informed Consent Obtained History Surgery Operation Date: 01/23/22 07:30 Proposed Procedures p Robotic Laparoscopic Assisted Partial Nephrectomy Right - Abisai Eubanks MD Operation Date: 02/27/22 10:50 Proposed Procedures p Robotic Laparoscopic Assisted Partial Nephrectomy - Right - Abisai Eubanks MD Height/Weight Height: 5 ft 5 in Weight: 96.644 kg Allergies Allergy/AdvReac Type Severity Reaction Status Date / Time No Known Allergies Allergy Verified 02/27/22 09:43 Medications Home Medications Medication Instructions Recorded Confirmed Last Taken aspirin 81 mg tablet,delayed 81 mg PO QAM 06/30/20 02/27/22 02/25/22 07:00 release albuterol sulfate 90 mcg/actuation 2 puff inhalation QID PRN 08/24/21 02/27/22 02/24/22 22:00 aerosol inhaler (Proventil HFA) Shortness Of Breath atorvastatin 20 mg tablet 20 mg PO HS 10/27/21 02/27/22 02/25/22 21:00 lisinopril 20 1 tab PO QAM 01/03/22 02/27/22 02/26/22 07:00 mg-hydrochlorothiazide 12.5 mg tablet metformin 1,000 mg tablet 1,000 mg PO BID 01/03/22 02/27/22 02/26/22 07:00 Active Medications Generic Name Dose Route Start Last Admin Trade Name Freq PRN Reason Stop Dose Admin Lactated Ringer's 1,000 mls @ 15 mls/hr 02/27/22 06:00 02/27/22 09:57 Lr IV 02/28/22 05:59 15 mls/hr .Q24H DREA Administration NPO Date Last Intake of Fluids: 02/26/22 Time Last Intake of Fluids: 20:00 Date Last Intake of Solids: 02/26/22 Time Last Intake of Solids: 16:00 Past Medical History Medical History Atrial fibrillation Diabetes NIDDM Dyslipidemia Hypertension Right renal mass Exercise / Class Metabolic Activity II 4-5 Yardwork/Stairs/Walk up hill Past Surgical History Surgical History History of cholecystectomy 07/04/20: Grade 1 view, Lopez 2, ETT 7.5. Past Anesthesia History No Hx of Anesthesia Complications and No Family Hx of Anesthesia Complications History of PONV No Hx of PONV and No Hx of Motion Sickness Social History Smoking Status: Never smoker Hx Alcohol Use: No Hx Substance Use: No substance use type: does not use Physical Exam Vital Signs Last Vital Signs Temp 98.4 F 02/27/22 09:46 Pulse 70 02/27/22 09:46 Resp 18 02/27/22 09:46 BP 123/80 02/27/22 09:46 Pulse Ox 97 02/27/22 09:46 O2 Del Method 02/27/22 09:46 ENMT Mouth: + edentulous Thyromental Distance: > or= 3.5 Finger Breadths Mallampati Class: II Neck normal visual inspection Respiratory normal respiratory effort Auscultation: lungs clear to auscultation bilaterally Cardiovascular Rate/Rhythm: regular rate and regular rhythm Testing Laboratory Results 02/27/22 09:32 02/27/22 09:52 POC Glucose 100 H Electrocardiogram Date: 08/24/21 NSR, rate 87 bpm Incomplete RBBB Poor R wave progression, consider anterior AL vs lead placement vs LVH Chest X-Ray Date: 08/24/21 *1 view* Cardiomegaly without acute process. Stress Test Date: 11/02/20 Pharmacologic MPHR 61% 1. Small, mild, partially reversible perfusion defect involving apical anterior/septal segments potentially representing distal single-vessel (low risk) ischemia versus artifact. 2. Normal LV size and function. LVEF 72% with no regional wall motion abnormalities. 3. Non-diagnostic stress ECG due to inability to reach target HR with Lexiscan. Other Testing Renal CT 08/25/21 2.4 cm enhancing lesion within the midpole of the right kidney highly suggestive of renal cell carcinoma. Urology consultation is recommended. Head CT 08/24/21 There is no hemorrhage, mass effect, or evidence of acute territorial ischemia by CT criteria. Abdomen pelvis CT 08/24/21 In additional to the above findings, there is the suggestion of a subtle 2.5 cm mass in the interpolar right kidney seen on axial image #176. Correlation with a contrast enhanced renal protocol CT or MRI is recommended for further evaluation. Lung base: The lung bases are clear. Abdominal cavity: There is no evidence for abdominal mass, adenopathy or ascites. There is a small left inguinal hernia containing peritoneal fat. Liver: The liver is homogeneous in attenuation on these limited noncontrast images.. Spleen: The spleen is homogeneous in attenuation on these limited noncontrast images. Pancreas: The pancreas is homogeneous in attenuation on these limited noncontrast images. Gall Bladder: Surgical clips are present. Adrenal glands: The adrenal glands are normal in size and attenuation on these limited noncontrast images. Kidneys: The kidneys are homogeneous in attenuation on these limited noncontrast images. There is no evidence for gross renal mass, calculus or hydronephrosis bilaterally. Bowel: There is evidence for small hiatal hernia. The stomach is distended with liquid and food stuff. There are fluid-filled loops of small bowel seen throughout the abdomen and pelvis with scattered fluid levels present. There is no evidence for disproportionate dilatation or obstruction. The findings are most characteristic of ileus versus gastroenteritis. There are also fluid-filled loops of large bowel with scattered fluid levels seen. There are no inflammatory changes present. There is no evidence for free air. There is a normal appendix in the right lower quadrant. Bladder: There is no evidence for focal bladder wall thickening, calculus or diverticulum. : There is no evidence for pelvic mass or adenopathy. Vasculature: There is no evidence for focal aneurysmal dilatation of the abdominal aorta. Osseous structures: There is no acute osseous pathology. There is degenerative change involving the lower lumbar spine. IMPRESSION: 1. Fluid-filled loops of small bowel with scattered fluid levels present. No disproportionate dilatation or obstruction is seen. The findings are most characteristic of an ileus versus gastroenteritis. 2. There is also fluid and fluid level seen within the colon. 3. Additional nonacute findings are delineated above.
[2022-02-27 10:43] LABS: Calcium 9.1 mg/dl (8.5-10.1); Creatinine Clr Calc Pharmacy 112.8 ml/min; Est GFR (African American) 117.4 ml/min; Est GFR (Non-African American) 101.3 ml/min
--- NOTE | 2022-02-27 11:17 | History & Physical Report ---
Date of Service February 27, 2022 Assessment & Plan (1) Renal mass: Plan: Right renal masssuspected renal cell carcinoma Here today for definitive surgery Risks, benefits, expectations reviewed in detail History of Present Illness Primary Care Provider: OLIVIA Choi Right renal mass Discussed partial nephrectomy versus radical nephrectomy Here for definitive surgery today Allergies Allergy/AdvReac Type Severity Reaction Status Date / Time No Known Allergies Allergy Verified 02/27/22 09:43 Home Medications Medication Instructions Recorded Confirmed Type aspirin 81 mg tablet,delayed 81 mg PO QAM 06/30/20 02/27/22 History release albuterol sulfate 90 mcg/actuation 2 puff inhalation QID PRN 08/24/21 02/27/22 History aerosol inhaler (Proventil HFA) Shortness Of Breath atorvastatin 20 mg tablet 20 mg PO HS 10/27/21 02/27/22 History lisinopril 20 1 tab PO QAM 01/03/22 02/27/22 History mg-hydrochlorothiazide 12.5 mg tablet metformin 1,000 mg tablet 1,000 mg PO BID 01/03/22 02/27/22 History Past Med/Surg History Medical History Atrial fibrillation Diabetes NIDDM Dyslipidemia Hypertension Right renal mass Surgical History History of cholecystectomy 07/04/20: Grade 1 view, Lopez 2, ETT 7.5. Social History Smoking Status: Never smoker Tobacco Cessation Education Requested by Patient: No Hx Alcohol Use: No Hx Substance Use: No Preferred Language: Senegalese Communication Ability: Effective Communication Ability Comment: unknown, olivia [facility] inmate [employer] Sorter Required: No Beliefs That Will Affect Care: None Current Living Situation: Other Current Living Situation Comment: OLIVIA Choi Feels Safe at Home: Yes Assistive Devices: None Physical Exam Constitutional: well developed and well nourished Neck: neck nontender Respiratory: normal respiratory effort; no respiratory distress and does not use accessory muscles Cardiovascular: Rate/Rhythm: regular rate Vessels: radial pulses present Extremities: no edema Gastrointestinal (Abdomen): Inspection/Auscultation: abdomen normal to inspection Percussion/Palpation: abdomen soft; abdomen nontender and no guarding Musculoskeletal: Head/Neck/Chest: normocephalic and head atraumatic Extremities: extremities normal to inspection Skin: no rashes and no lesions Trauma: no evidence of skin trauma Neurologic: awake; not obtunded Speech / Cognition: normal speech Motor/Sensory: no tremor Psychiatric: Orientation: alert and oriented x 3 Genitourinary: no CVA tenderness Lymphatic: no lymphadenopathy Results & Data ([facility]) Vital Signs (Past 12 Hours) Vital Signs Temp Pulse Resp BP Pulse Ox O2 Del Method 02/27/22 09:46 36.9 C 70 18 123/80 97 Room Air
[2022-02-27] MEDS ORDERED: BUPIVACAINE 0.5 % 5 MG/1 ML MPF 30ML VIAL ONE (12:11)
[2022-02-27] MEDS ORDERED: HYDROmorphone INJ 2 MG/ML SYR/VIAL ONE (12:52)
[2022-02-27] MEDS ORDERED: PROPOFOL IV EMULSION 10 MG/ML 20 ML VIAL IV ONE (13:20)
[2022-02-27] MEDS ORDERED: LARYING-O-JET KIT (LTA) ONE (13:20)
[2022-02-27] MEDS ORDERED: ROCURONIUM BROMIDE 10 MG/ML 5 ML VIAL IV ONE (13:20)
[2022-02-27] MEDS ORDERED: ONDANSETRON INJ 2 MG/ML 2 ML VIAL ONE (13:20)
[2022-02-27] MEDS ORDERED: ePHEDrine sulfate 50 MG/ML SYR ONE (13:20)
[2022-02-27] MEDS ORDERED: LIDOCAINE 2% MPF LOCAL 5 ML VIAL INFIL ONE (13:20)
[2022-02-27] MEDS ORDERED: GLYCOPYRROLATE 0.2 MG/ML VIAL ONE (13:20)
[2022-02-27] MEDS ORDERED: NEOSTIGMINE METHYLSULFATE 1 MG/ML 10ML VIAL ONE (13:20)
[2022-02-27] MEDS ORDERED: PHENYLEPHRINE 100MCG/ML 5ML SYR ONE (13:20)
[2022-02-27] MEDS ORDERED: DEXAMETHASONE SOD INJ 4 MG/ML VIAL ONE (13:20)
--- NOTE | 2022-02-27 14:19 | Operative Report ---
PG Post Operative Report Pre & Post Diagnosis Operation Date: 01/23/22 07:30 <No data on this case meets the specified criteria> Operation Date: 02/27/22 10:50 Pre-Op Diagnosis: Right Renal Mass Post-Op Diagnosis: Right Renal Mass I identified the patient and participated in the time-out.: Yes Procedure Operation Date: 01/23/22 07:30 <No data on this case meets the specified criteria> Operation Date: 02/27/22 10:50 Actual Procedures p Laparoscopic Hand Assisted Right Nephrectomy(Right) - Abisai leyva MD Surgeon Abisai Eubanks MD Animal Physiology Teacher Dulce Licea Estimated Blood Loss 25 Findings Consistent with Post-Op Diagnosis Specimens Right kidney Description of Procedure Patient was identified the preoperative holding area, appropriate informed consent was reviewed and completed. Patient was administered appropriate antibiotics and taken to the operating suite. Upon arrival he received appropriate anesthesia was placed in the left side down right side up lateral decubitus position with the bed flexed. He was padded and braced appropriately before sterile prep. Utilizing anatomical long landmarks a right lower quadrant incision was made from the border of the rectus muscle in a lateral directionGibson style. I carried this to the superficial tissue until expose the external oblique fascia. I incised this sharply and then opened for the length of the incision. I performed the same through the internal oblique fascia as well as the transversalis. Then sharply incised the peritoneum and performed a finger sweep. There were no adhesions. I then opened the incision for the remainder of the length. I placed a GelPort through this incision and insufflated the abdomen by inserting a 12 mm Visiport through the GelPort. Inspection revealed healthy appearing tissue without any adhesions. 2-12 mm lpn medical assistant ports were p laced approximately 4 fingerbreadths lateral to the rectus border, 1 approximately 2 to 3 fingerbreadths below the costal margin the other approximately 8 cm inferior to that port. I began the laparoscopic portion of the case by utilizing a harmonic scalpel to incise the white line of Toldt and medialize the colon. I carried this dissection across the anterior surface of the kidney and expose the underlying duodenum. Minimal kocherization was required but I did kocherized the lower portion of the duodenum where it was adjacent to the hilar structures. This exposed underlying IVC. I was able to identify the gonadal vein entering into the IVC and create a window just lateral to the gonadal. This was dissected down onto the psoas muscle and I used this plane to elevate the lower pole of the kidney. By placing the hilar structures on stretch I was able to identify the inferior edge of the vein. I created a window behind and superior to this vein and this incorporated the artery in it. I could easily palpate this with my hand through the HandPort. The hilar structures were controlled with a solitary staple load and hemostasis was excellent. I utilized a second staple load to separate the adrenal gland from the superior medial aspect of the kidney. I then used harmonic scalpel to complete my incision of the peritoneum towards the upper lateral corner of the kidney and down the lateral aspect of Gerota's fascia. I carefully dissected around the remaining aspect of the kidney and it was entirely freed. I did control the ureter with the harmonic scalpel. The specimen was then freed and extracted through the GelPort. I reinsufflated and inspected the abdomen and hemostasis was outstanding. I guided the colon and omentum back towards that side of the abdomen before extracting my GelPort and beginning closure of the abdominal incisions. Given the location of the to 12 mm lpn medical assistant ports these were closed utilizing 4-0 Monocryl to the skin only. The main incision was closed in multiple layers with 0 Vicryl utilized to reapproximate the peritoneum to help retract bowel out of the field followed by closure of the internal oblique and external oblique fascia with 0 Vicryl sutures. Marilia's fascia was reapproximated with another Vicryl before closure of the skin with 4-0 Monocryl and Dermabond. At the conclusion of the case he was reversed of anesthesia and taken to the recovery room in stable condition. There were no complications. He tolerated the entire procedure very well. Daniel Steiner assisted with the case. Dulce Bateman assisted with all portions of the case as well. I attest to the content of the Intraoperative Record and any orders documented therein. Any exceptions are noted below.
[2022-02-27 14:32] LABS: Basophils # (auto) 0.02 K/uL (0-0.2); Basophils % (auto) 0.2 %; Eosinophils # (auto) 0.29 K/uL (0-0.50); Eosinophils % (auto) 3.2 %; Hematocrit (blood only) 39.8 % (40.1-51.0); Hemoglobin 12.6 g/dl (14.0-18.0); Immature Granulocytes # (auto) 0.03 K/uL (0.00-0.02); Immature Granulocytes % (auto) 0.3 %; Lymphocytes # (auto) 1.83 K/uL (1.2-3.4); Lymphocytes % (auto) 20.2 %; Mean Corpuscular Hemoglobin 27.9 pg (25.0-34.0); Mean Corpuscular Hgb Conc 31.7 g/dL (32.0-36.0); Mean Corpuscular Volume 88.2 fL (80.0-100.0); Mean Platelet Volume 9.4 fL (9.4-12.4); Monocytes # (auto) 0.34 K/uL (0.24-0.82); Monocytes % (auto) 3.7 %; Neutrophils # (auto) 6.57 K/uL (1.4-6.5); Neutrophils % (auto) 72.4 %; Platelet Count 312 K/uL (130-400); RDW Coefficient of Variation 14.5 % (11.5-14.5); RDW Standard Deviation 46.7 fL (36.4-46.3); Red Blood Count 4.51 M/uL (4.63-6.08); White Blood Count 9.08 K/ul (4.8-10.8)
--- NOTE | 2022-02-27 14:47 | Anesthesiology Progress Note ---
Date of Service February 27, 2022 Anesthesia Post Procedure Vital Signs Vital Signs: Temp Pulse Pulse Resp BP Pulse Ox O2 Del Method 02/27/22 14:40 72 13 130/79 96 Nasal Cannula 02/27/22 14:30 64 14 125/83 100 Oxymask 02/27/22 14:20 67 12 139/88 100 Oxymask 02/27/22 14:10 97.3 F L 79 18 140/90 100 Oxymask 02/27/22 09:46 98.4 F 70 18 123/80 97 Room Air O2 Flow Rate 02/27/22 14:40 4 02/27/22 14:30 4 02/27/22 14:20 10 02/27/22 14:10 10 02/27/22 09:46 Pain Intensity Abdomen: Pain Intensity: 4 Transfer of Care Handoff Completed per policy Notes Mental Status: alert / awake / arousable and participated in evaluation Patient Amnestic to Procedure: Yes Nausea / Vomiting: adequately controlled Pain: adequately controlled Airway Patency, RR, SpO2: stable & adequate BP & HR: stable & adequate Hydration State: stable & adequate Anesthetic Complications: no major complications apparent and Pt Satisfied with anesthetic care
[2022-02-27 14:54] LABS: BUN Creatinine Ratio 12.6 (10-20); Calcium 8.2 mg/dl (8.5-10.1); Est GFR (African American) 104.8 ml/min; Est GFR (Non-African American) 90.4 ml/min
[2022-02-27] MEDS ORDERED: MoRPHine SULFATE 2 MG/ML CARP IV PRN (15:36)
[2022-02-27] MEDS ORDERED: MoRPHine SULFATE 4 MG/ML 1 ML CARP\\VIAL IV PRN (15:36)
[2022-02-27] MEDS ORDERED: PHARMACY GLYCEMIC MGMT CONSULT PRN (15:36)
[2022-02-27] MEDS ORDERED: oxyCODONE HCL IR 5 MG TAB (IMMEDIATE RELEASE) PO PRN (15:36)
[2022-02-27] MEDS ORDERED: ALBUTEROL HFA 8 GM INHALER INH PRN (15:36)
[2022-02-27] MEDS ORDERED: GLUCAGON FOR INJ 1 MG VIAL IM PRN (16:15)
[2022-02-27] MEDS ORDERED: GLUCOSE 40% GEL 15 GM TUBE PO PRN (16:15)
[2022-02-27] MEDS ORDERED: DEXTROSE 50% 50 ML SYRINGE IV PRN (16:15)
[2022-02-27] MEDS ORDERED: CARBOHYDRATES FOR HYPOGLYCEMIA PO PRN (16:15)
[2022-02-27] MEDS ORDERED: GLUCOSE 10 TAB/TUBE PO PRN (16:15)
[2022-02-27] MEDS: LACTATED RINGER'S 1,000 ML IV SCH ×2 (16:41→21:14)
[2022-02-27] MEDS: INSULIN ASPART PER UNIT SC SCH ×2 (17:41→21:50)
[2022-02-27] MEDS: ACETAMINOPHEN 325 MG TAB PO SCH ×2 (17:41→23:59)
[2022-02-27] MEDS: ceFAZolin 2000MG 2,000 MG/15 ML SYR IV SCH (20:05)
[2022-02-27] MEDS: oxyCODONE HCL IR 5 MG TAB (IMMEDIATE RELEASE) PO PRN ×2 (20:07→23:59)
[2022-02-27] MEDS ORDERED: ATORVASTATIN 20 MG TAB PO SCH (21:00)
[2022-02-27] MEDS: HEPARIN SOD 5,000 UNIT/0.5 ML VIAL SQ SCH (21:41)
[2022-02-27] MEDS: DOCUSATE SODIUM 100 MG CAP PO SCH (21:41)
[2022-02-28] MEDS: ceFAZolin 2000MG 2,000 MG/15 ML SYR IV SCH (05:14)
[2022-02-28] MEDS: ACETAMINOPHEN 325 MG TAB PO SCH ×2 (05:14→13:03)
[2022-02-28] MEDS: oxyCODONE HCL IR 5 MG TAB (IMMEDIATE RELEASE) PO PRN (05:44)
[2022-02-28 07:06] LABS: Basophils # (auto) 0.01 K/uL (0-0.2); Basophils % (auto) 0.1 %; Hematocrit (blood only) 40.8 % (40.1-51.0); Hemoglobin 13.2 g/dl (14.0-18.0); Immature Granulocytes # (auto) 0.05 K/uL (0.00-0.02); Immature Granulocytes % (auto) 0.4 %; Lymphocytes # (auto) 1.01 K/uL (1.2-3.4); Lymphocytes % (auto) 8.9 %; Mean Corpuscular Hemoglobin 28.2 pg (25.0-34.0); Mean Corpuscular Hgb Conc 32.4 g/dL (32.0-36.0); Mean Corpuscular Volume 87.2 fL (80.0-100.0); Mean Platelet Volume 9.4 fL (9.4-12.4); Monocytes # (auto) 0.48 K/uL (0.24-0.82); Monocytes % (auto) 4.2 %; Neutrophils # (auto) 9.86 K/uL (1.4-6.5); Neutrophils % (auto) 86.4 %; Platelet Count 363 K/uL (130-400); RDW Coefficient of Variation 14.1 % (11.5-14.5); RDW Standard Deviation 45.3 fL (36.4-46.3); Red Blood Count 4.68 M/uL (4.63-6.08); White Blood Count 11.41 K/ul (4.8-10.8)
[2022-02-28] MEDS: LACTATED RINGER'S 1,000 ML IV SCH (07:14)
[2022-02-28 07:41] LABS: BUN Creatinine Ratio 11.1 (10-20); Calcium 8.7 mg/dl (8.5-10.1); Creatinine Clr Calc Pharmacy 66.9 ml/min; Est GFR (African American) 68.5 ml/min; Est GFR (Non-African American) 59.1 ml/min; Potassium 4.9 mmol/L (3.5-5.1)
--- NOTE | 2022-02-28 08:05 | Urology Progress Note ---
Date of Service February 28, 2022 Assessment & Plan (1) Renal mass: Plan: Right renal mass suspected renal cell carcinoma Status post right nephrectomy Progressing appropriately Likely discharge later this morning Admission and Anticipated Discharge Date Admission Date: February 27, 2022 Subjective No issues overnight Expected levels of pain after surgery, otherwise progressing appropriately Has not yet ambulated but is pending to this morning Labs all appropriatecreatinine 1.35, expected rise given his surgery Physical Exam Physical Exam: incisions appropriate Results & Data ([facility]) Vital Signs (Past 12 Hours) Vital Signs Temp Pulse Resp BP Pulse Ox O2 Del Method 02/28/22 07:19 36.8 C 54 L 18 136/87 95 Room Air 02/27/22 23:59 36.7 C 62 20 144/82 H 94 Room Air 02/27/22 20:05 Room Air PG Care Time/CCT Total # of Minutes Spent Total Time Spent with Patient: Total time spent is greater than 50% in coordination of care (as documented) at patient's floor/unit and/or counseling patient: Coding Level of Care Code None Diagnoses Renal mass N28.89
[2022-02-28] MEDS: INSULIN ASPART PER UNIT SC SCH ×2 (08:36→13:01)
[2022-02-28] MEDS ORDERED: LISINOPRIL/HCTZ 20/12.5MG 1 TAB TAB PO SCH (09:00)
[2022-02-28] MEDS: HEPARIN SOD 5,000 UNIT/0.5 ML VIAL SQ SCH (09:10)
[2022-02-28] MEDS: DOCUSATE SODIUM 100 MG CAP PO SCH (09:13)
--- NOTE | 2022-02-28 12:57 | Discharge Summary ---
Date of Service February 28, 2022 Admission HPI Per Admitting Provider Right renal mass Discussed partial nephrectomy versus radical nephrectomy Here for definitive surgery today Admission Exam Per Admitting Provider Physical Exam Constitutional: well developed and well nourished Neck: neck nontender Respiratory: normal respiratory effort; no respiratory distress and does not use accessory muscles Cardiovascular: Rate/Rhythm: regular rate Vessels: radial pulses present Extremities: no edema Gastrointestinal (Abdomen): Inspection/Auscultation: abdomen normal to inspection Percussion/Palpation: abdomen soft; abdomen nontender and no guarding Musculoskeletal: Head/Neck/Chest: normocephalic and head atraumatic Extremities: extremities normal to inspection Skin: no rashes and no lesions Trauma: no evidence of skin trauma Neurologic: awake; not obtunded Speech / Cognition: normal speech Motor/Sensory: no tremor Psychiatric: Orientation: alert and oriented x 3 Genitourinary: no CVA tenderness Lymphatic: no lymphadenopathy Principal Diagnosis Renal Mass Discharge Exam Physical Exam:incisions appropriate Discharge Data Allergies Allergy/AdvReac Type Severity Reaction Status Date / Time No Known Allergies Allergy Verified 02/27/22 09:43 Procedures Performed Operation Date: 01/23/22 07:30 <No data on this case meets the specified criteria> Operation Date: 02/27/22 10:50 Actual Procedures p Laparoscopic Hand Assisted Right Nephrectomy(Right) - Abisai Eubanks MD Hospital Course (1) Renal mass: Right renal mass suspected renal cell carcinoma Status post right nephrectomy Progressing appropriately Likely discharge later this morning Total Time Total Time Spent Total Time Spent (In Minutes): 29 Discharge Plan Discharge Items [facility] Disposition: [facility] Reason For Visit: Renal Mass Discharge Diagnosis: renal mass - suspected renal cell carcinoma Activity: Per Instructions section Lifting: No more than 25 pounds Bathing: No limitations Exercise/Sports: Gradually increase as tolerated Non-emergency contact: Urologist Call non-emergency contact if: you have any medication questions, your symptoms worsen, your pain is concerning for you and your temperature is above 101.5 Follow-up/Referrals: Steph BAKER [Primary Care Provider] - Diet: Regular Addtl Attending Provider Instructions: Please take all medications as prescribed and keep all follow-ups as scheduled. Please call our office at [phone] with any questions, concerns or need to reschedule appointments for any reason. We are happy to assist you. Recovering at home: We recommend having someone with you for the first few days after surgery to help care for you. It is okay to shower tomorrow. Please avoid swimming, bathing or using hot tub until incisions are well healed. Avoid driving until you are not requiring pain medication any further. Walk at least a few times a day. Increase your distance, as you feel able. Stairs in your home are okay. Please avoid strenuous or sexual activity until your follow-up. We recommend using stool softener (i.e. Colace) to prevent constipation and straining, especially the first two weeks post operatively. Call [facility] at [phone] if you experience: Chest pain or trouble breathing (call [phone] or go to the hospital). Fever of 101F or higher Symptoms of infection at incision site, including redness or swelling, warmth, or bad-smelling drainage If you have catheter, and you notice: o Bloody urine or drainage that is dark red or has large clots (Please remember a small amount of blood is normal) o No drainage from the catheter for more than 6 hours o The catheter comes out of your bladder Pain that is not controlled with medicines Pending Studies at Discharge: Yes Studies:: pathology Stand-Alone Forms: My [facility] Skilled Items Patient informed of condition?: Yes Discharge Level of Care: Other Communicable Disease: No Discharge Prognosis: Stable Lines: None Urinary Catheter: No Medications and DC Order Prescriptions: New hydrocodone-acetaminophen 5-325 mg tablet 1 tab PO Q6H PRN (Reason: pain) Qty: 20 0RF Continued atorvastatin 20 mg tablet 20 mg PO HS lisinopril-hydrochlorothiazide 20-12.5 mg Tablet 1 tab PO QAM metformin 1,000 mg Tablet 1,000 mg PO BID aspirin 81 mg Tablet,Delayed Release (Dr/Ec) 81 mg PO QAM albuterol sulfate [Proventil HFA] 90 mcg/actuation Hfa Aerosol Inhaler 2 puff INHALATION QID PRN (Reason: Shortness Of Breath) Discharge Orders: Discharge Order (Routine); Ordered 02/28/22 Ordered By: Abisai Eubanks Admission Data Admit Date/Time: 02/27/22 13:54 Attending Provider: Abisai Eubanks Admit Provider: Abisai Eubanks Primary Care Provider: Steph BAKER Other Interventions: Discharge Summary Assessment (RN) Last Done: 02/28/22 10:09 Coding Level of Care Code D/C DAY MANAGEMENT <30 MINS Diagnoses Renal mass N28.89
== END 2022-02-28 14:00 ==
LOC: ASU 09:07 → 3E 13:54 → INTOOBSV 13:54